=== PATIENT | male | born 1980 | race Hispanic/Latino ===

== ENCOUNTER 2020-05-07 15:45 | Inpatient (IN) | payer SELFPAY ==
[2020-05-07] MEDS ORDERED: PANTOPRAZOLE 40 MG INJ ONE ×2 (17:25→21:49)
[2020-05-07] MEDS ORDERED: CEFTRIAXONE/SWI 1gm 1 GM/10 ML SYR ONE (17:26)
[2020-05-07] MEDS ORDERED: NA CHLORIDE 0.9% 1,000 ML ONE (17:26)
[2020-05-07 17:40] LABS: Absolute Lymphocytes (CBC) 0.9 K/uL (0.7-4.9); Basophils % 0.4 % (0-1.3); Hematocrit 30.2 % (39.6-49.0); Lymphocytes % 31.4 % (15.3-44.8); MPV 8.2 fL (7.6-11.3); RBC Red Blood Cell Count 3.62 M/uL (4.33-5.43)
[2020-05-07 17:49] LABS: ALT/SGPT 93 U/L (12-78); AST/SGOT 179 U/L (15-37); Albumin 2.3 g/dL (3.4-5.0); Alkaline Phosphatase 149 U/L (45-117); BUN Blood Urea Nitrogen 16 mg/dL (7-18); Bicarbonate 23 mmol/L (21-32); Bilirubin Direct 0.4 mg/dL (0-0.2); Bilirubin Total 0.5 mg/dL (0.2-1.0); Glucose Level 105 mg/dL (74-106); Lipase 225 U/L (73-393); Potassium 3.6 mmol/L (3.5-5.1); Protein, Total 7.6 g/dL (6.4-8.2); Sodium Level 138 mmol/L (136-145)
--- NOTE | 2020-05-07 18:04 | RAD REPORT ---
EXAM DESCRIPTION: CT - Abdomen Pelvis W Contrast - 05/07/2020 5:52 pm CLINICAL HISTORY: Abdominal pain diarhea COMPARISON: none. TECHNIQUE: Computed axial tomography of the abdomen pelvis was obtained. 100 cc Isovue-300 was admin istered intravenously. Oral contrast was not requested which limits evaluation of bowel. All CT scans are performed using dose optimization technique as appropriate and may include automated exposure control or mA/KV adjustment according to patient size. FINDINGS: Markedly cirrhotic liver. The portal vein is patent. The spleen measures 14 centimeters. Pancreas is normal size and density. Small amount peripancreatic fluid. Small bilateral nonobstructing renal calculi. Small renal cysts There is no evidence of diverticulitis. Normal appendix Minimal ascites. Small hiatal hernia IMPRESSION: Marked cirrhosis Small amount peripancreatic fluid may be related to hypoalbuminemia or mild pancreatitis Small nonobstructing renal calculi
--- NOTE | 2020-05-07 18:17 | ER ---
Nurse's Notes [facility] Name: Rick Brooks Age: 40 yrs Sex: Male : 1980 Arrival Date: 05/07/2020 Time: 15:47 Bed 13 Private MD: Diagnosis: Gastrointestinal hemorrhage, unspecified Presentation: 05/07 15:57 Chief complaint: Patient states: black diarrhea x 3 days. Also reports mild cough x 3 ss days. Denies headache/ fever. Coronavirus screen: Prior COVID test collected on: 04/24/20 NEGATIVE RESULT. Ebola Screen: Patient denies exposure to infectious person. Patient denies travel to an Ebola-affected area in the 21 days before illness onset. Initial Sepsis Screen: Does the patient meet any 2 criteria? HR > 90 bpm. No. Patient's initial sepsis screen is negative. Does the patient have a suspected source of infection? No. Patient's initial sepsis screen is negative. Risk Assessment: Do you want to hurt yourself or someone else? Patient reports no desire to harm self or others. Onset of symptoms was May 04, 2020. 15:57 Method Of Arrival: Ambulatory ss 15:57 Acuity: MARGARITA 3 ss Historical: - Allergies: 16:00 No Known Allergies; ss - Home Meds: 16:00 None [Active]; ss - PMHx: 16:00 None; ss - PSHx: 16:00 None; ss - Immunization history:: Adult Immunizations unknown. - Social history:: Smoking status: Patient reports the use of cigarette tobacco products, denies chronic smoking, but will smoke occasionally. - Family history:: not pertinent. Screenin:12 Abuse screen: Denies threats or abuse. Nutritional screening: No deficits noted. Tuberculosis screening: No symptoms or risk factors identified. Fall Risk None identified. Assessment: 16:50 General: Appears in no apparent distress. Behavior is calm, cooperative. Pain: Denies pain. Neuro: Level of Consciousness is awake, alert, obeys commands, Oriented to person, place, time, situation, Appropriate for age. Cardiovascular: Heart tones S1 S2 present Capillary refill < 3 seconds Patient's skin is warm and dry. Pulses are palpable in right radial artery and left radial artery. Respiratory: Airway is patent Respiratory effort is even, unlabored. GI: Abdomen is distended, Bowel sounds hyperactive in right upper quadrant, left upper quadrant, right lower quadrant and left lower quadrant Abd is non tender X 4 quads Reports diarrhea, Black loose stools x 3-4 days Patient currently denies bloody stool. Derm: Skin is intact, is healthy with good turgor. 17:50 Reassessment: Patient and/or family updated on plan of care and expected duration. Pain ah level reassessed. Patient is alert, oriented x 3, equal unlabored respirations, skin warm/dry/pink. awaiting on results from lab and radiology. No needs voiced at this time. 18:50 Reassessment: Patient and/or family updated on plan of care and expected duration. Pain ah level reassessed. Patient is alert, oriented x 3, equal unlabored respirations, skin warm/dry/pink. awaiting on results and decision to be made by provider. Pt has no needs at this time. 19:50 Reassessment: Patient and/or family updated on plan of care and expected duration. Pain ah level reassessed. Patient is alert, oriented x 3, equal unlabored respirations, skin warm/dry/pink. 20:35 Reassessment: Pt called for nurse to come to room. Pt profusely sweating and states ah that he feels shaky and hungry. Pt denies being diabetic. Glucose checked at bedside and read 36. Immediately notified MD and got order to administer D50. Meds administered. Pt given cool rag. at bedside. Pt still alert and oriented. No other needs voiced at this time. 20:50 Reassessment: Blood sugar rechecked at this time. Pt states that he is feeling better ah and not shaky. Blood sugar 151. Informed Pt that he cannot eat at this time, but he will be going to room 6 in ICU very soon. Pt voiced understanding. Vital Signs: 15:57 BP 145 / 86; Pulse 113; Resp 16; Temp 98.6(TE); Pulse Ox 100% on R/A; Weight 81.65 kg; ss Height 5 ft. 6 in. (167.64 cm); Pain 0/10; 20:49 BP 102 / 49; Pulse 93; Resp 16; Pulse Ox 97% ; ah 15:57 Body Mass Index 29.05 (81.65 kg, 167.64 cm) ED Course: 15:47 Patient arrived in ED. bp1 16:00 Triage completed. ss 16:00 Arm band placed on right wrist. ss 16:15 Bed in low position. Call light in reach. Side rails up X 1. Adult w/ patient. Warm jp3 blanket given. Verbal reassurance given. Pulse ox on. NIBP on. 16:42 Kala Farrar, RN is Primary Nurse. 16:43 Jeferson Wing MD is Attending Physician. ma2 17:20 Inserted saline lock: 20 gauge in right forearm, using aseptic technique. Blood jp3 collected. Patient maintains SpO2 saturation greater than 95% on room air. 17:20 Initial lab(s) drawn, by wa, sent to lab. jp3 17:52 CT Abd/Pelvis - IV Contrast Only In Process Unspecified. EDMS 18:16 Prince Camacho MD is Hospitalizing Provider. ma2 18:50 Repeat lab(s) drawn. by me, sent to lab. Urine collected: clean catch specimen, clear, jp3 matthew colored. 18:50 PT-INR Sent. jp3 22:08 No provider procedures requiring assistance completed. Patient admitted, IV remains in ah place. Administered Medications: 17:30 Drug: NS 0.9% 1000 ml Route: IV; Rate: 1 bolus; Site: right antecubital; 21:05 Follow up: Response: No adverse reaction; IV Status: Completed infusion 17:55 Drug: Rocephin - (cefTRIAXone) 1 grams Route: IVPB; Infused Over: 30 mins; Site: right antecubital; 18:00 Drug: Pantoprazole 80 mg Route: IVP; Site: right antecubital; 21:05 Follow up: Response: No adverse reaction 19:26 Drug: Octreotide Infusion (50 mcg/hr) - (Octreotide 500 mcg, NS 0.9% 500 ml) Route: IV; Rate: 50 ml/hr; Site: right antecubital; 21:04 Follow up: Response: No adverse reaction; IV Status: Infusion continued upon admission 22:07 Follow up: Response: No adverse reaction; IV Status: Infusion continued upon admission 20:35 Drug: D50W 50 ml Route: IVP; Site: right antecubital; 21:04 Follow up: Response: No adverse reaction 22:07 Follow up: Response: No adverse reaction; Blood sugar is elevated Outcome: 18:16 Decision to Hospitalize by Provider. ma2 21:20 Admitted to ICU accompanied by nurse, via wheelchair, room 6, on monitor, with chart, Report called to receiving nurse, ANAT Nunez 21:20 Condition: stable 21:20 Instructed on the need for admit. 21:23 Patient left the ED. mw2 Signatures: Dispatcher [employer] EDJamila Desai, RN RN Jeferson Wing MD MD ma2 Mirta Mcdaniel mw2 Nishant Jean 3 Kala Farrar RN RN [facility]
--- NOTE | 2020-05-07 18:17 | EDPHYS ---
Physician Documentation [facility] Name: Rick Brooks Age: 40 yrs Sex: Male : 1980 Arrival Date: 05/07/2020 Time: 15:47 Bed 13 Private MD: ED Physician Jeferson Wing HPI: 05/07 17:14 This 40 yrs old Male presents to ER via Ambulatory with complaints of Black/Tarry ma2 Stools, Diarrhea, Cough. 17:14 Onset: The symptoms/episode began/occurred gradually, 1 day(s) ago. Associated signs ma2 and symptoms: Pertinent negatives: anorexia, constipation, dysuria, flatulence, hematuria. Severity of symptoms: At their worst the symptoms were mild in the emergency department the symptoms are unchanged. The patient has not experienced similar symptoms in the past. Historical: - Allergies: 16:00 No Known Allergies; ss - Home Meds: 16:00 None [Active]; ss - PMHx: 16:00 None; ss - PSHx: 16:00 None; ss - Immunization history:: Adult Immunizations unknown. - Social history:: Smoking status: Patient reports the use of cigarette tobacco products, denies chronic smoking, but will smoke occasionally. - Family history:: not pertinent. ROS: 17:14 Constitutional: Negative for fever, chills, and weight loss. ma2 17:14 All other systems are negative. Exam: 17:14 Constitutional: This is a well developed, well nourished patient who is awake, alert, ma2 and in no acute distress. Chest/axilla: Normal chest wall appearance and motion. Nontender with no deformity. No lesions are appreciated. Cardiovascular: Regular rate and rhythm with a normal S1 and S2. No gallops, murmurs, or rubs. Normal PMI, no JVD. No pulse deficits. Respiratory: Lungs have equal breath sounds bilaterally, clear to auscultation and percussion. No rales, rhonchi or wheezes noted. No increased work of breathing, no retractions or nasal flaring. Abdomen/GI: Soft, non-tender, with normal bowel sounds. No distension or tympany. No guarding or rebound. No evidence of tenderness throughout. Skin: Warm, dry with normal turgor. Normal color with no rashes, no lesions, and no evidence of cellulitis. MS/ Extremity: Pulses equal, no cyanosis. Neurovascular intact. Full, normal range of motion. Neuro: Awake and alert, GCS 15, oriented to person, place, time, and situation. Cranial nerves II-XII grossly intact. Motor strength 5/5 in all extremities. Sensory grossly intact. Cerebellar exam normal. Normal gait. Vital Signs: 15:57 BP 145 / 86; Pulse 113; Resp 16; Temp 98.6(TE); Pulse Ox 100% on R/A; Weight 81.65 kg; ss Height 5 ft. 6 in. (167.64 cm); Pain 0/10; 20:49 BP 102 / 49; Pulse 93; Resp 16; Pulse Ox 97% ; ah 15:57 Body Mass Index 29.05 (81.65 kg, 167.64 cm) ss MDM: 16:43 Patient medically screened. [facility] 17:14 Differential diagnosis: PUD, upper GI bleeding, Lower GI bleeding vs diverticulitits. [facility] 18:12 Data reviewed: vital signs, nurses notes. Counseling: I had a detailed discussion with [facility] the patient and/or guardian regarding: the historical points, exam findings, and any diagnostic results supporting the discharge/admit diagnosis, the presence of at least one elevated blood pressure reading (>120/80) during this emergency department visit, the need for outpatient follow up. ED course: he drinks alcohol, quit drinking 2 weeks ago, called dr. helm and left a voice message, will admit. discussed with dr. Keenan. 18:22 ED course: discussed with dr. helm. [facility] 05/07 17:10 Order name: Type And Screen [facility] 05/07 17:10 Order name: Basic Metabolic Panel; Complete Time: 18:03 [facility] 05/07 17:10 Order name: CBC with Diff [facility] 05/07 17:10 Order name: Hepatic Function; Complete Time: 18:03 [facility] 05/07 17:10 Order name: Lipase; Complete Time: 18:03 [facility] 05/07 18:21 Order name: PT-INR [facility] 05/07 18:45 Order name: CREATININE WHOLE BLOOD [facility] 05/07 18:54 Order name: CBC Smear Scan [facility] 05/07 19:03 Order name: Protime (+INR) [facility] 05/07 19:22 Order name: ABO/RH no charge [facility] 05/07 20:14 Order name: Hemoglobin [facility] 05/07 20:14 Order name: Hematocrit [facility] 05/07 20:40 Order name: Glucose, Ancillary Testing [facility] 05/07 20:59 Order name: Glucose, Ancillary Testing [facility] 05/07 17:10 Order name: IV Saline Lock; Complete Time: 18:10 ma2 05/07 17:10 Order name: Labs collected and sent; Complete Time: 18:10 ut2 05/07 17:10 Order name: CT Abd/Pelvis - IV Contrast Only; Complete Time: 18:10 ma2 Administered Medications: 17:30 Drug: NS 0.9% 1000 ml Route: IV; Rate: 1 bolus; Site: right antecubital; 21:05 Follow up: Response: No adverse reaction; IV Status: Completed infusion 17:55 Drug: Rocephin - (cefTRIAXone) 1 grams Route: IVPB; Infused Over: 30 mins; Site: right ah antecubital; 18:00 Drug: Pantoprazole 80 mg Route: IVP; Site: right antecubital; 21:05 Follow up: Response: No adverse reaction 19:26 Drug: Octreotide Infusion (50 mcg/hr) - (Octreotide 500 mcg, NS 0.9% 500 ml) Route: IV; Rate: 50 ml/hr; Site: right antecubital; 21:04 Follow up: Response: No adverse reaction; IV Status: Infusion continued upon admission 22:07 Follow up: Response: No adverse reaction; IV Status: Infusion continued upon admission 20:35 Drug: D50W 50 ml Route: IVP; Site: right antecubital; 21:04 Follow up: Response: No adverse reaction 22:07 Follow up: Response: No adverse reaction; Blood sugar is elevated Disposition: 05/07/20 18:16 Hospitalization ordered by Prince Doug for Inpatient Admission. Preliminary diagnosis is Gastrointestinal hemorrhage, unspecified. - Bed requested for Intensive Care Unit. - Status is Inpatient Admission. mw2 - Condition is Stable. - Problem is new. - Symptoms are unchanged. Signatures: Dispatcher [facility] Chelsey Piedra RN RN Jamila Morel RN RN Jeferson Wing MD MD ut2 Mirta Mcdaniel mw2 Kala Farrar, RN RN ah Corrections: (The following items were deleted from the chart) 18:16 18:16 Hospitalization Ordered by Prince Doug SNIGH for Inpatient Admission. Preliminary ma2 diagnosis is Gastrointestinal hemorrhage, unspecified. Bed requested for Telemetry/MedSurg (Inpatient). Status is Inpatient Admission. Condition is Stable. Problem is new. Symptoms are unchanged. [facility] 20:22 18:16 05/07/2020 18:16 Hospitalization Ordered by Prince Doug SINGH for Inpatient mw Admission. Preliminary diagnosis is Gastrointestinal hemorrhage, unspecified. Bed requested for Intensive Care Unit. Status is Inpatient Admission. Condition is Stable. Problem is new. Symptoms are unchanged. [facility] 21:23 20:22 05/07/2020 18:16 Hospitalization Ordered by Prince Doug SINGH for Inpatient mw2 Admission. Preliminary diagnosis is Gastrointestinal hemorrhage, unspecified. Bed requested for Intensive Care Unit. Status is Inpatient Admission. Condition is Stable. Problem is new. Symptoms are unchanged.
[2020-05-07 18:53] LABS: Blood Morphology Comment NOT SEEN (NOT SEEN); Platelet Estimate DECR; Urine White Blood Cell Casts OK
[2020-05-07 18:58] LABS: Protime INR 1.23
[2020-05-07 20:03] LABS: Hematocrit 25.6 % (39.6-49.0)
[2020-05-07] MEDS ORDERED: D50W 25 GM/50 ML SYRINGE/VIAL IV ONE (20:38)
[2020-05-07] MEDS ORDERED: PANTOPRAZOLE INJ 80 MG in NA CHLORIDE 0.9% 250 ML IV SCH (21:21)
[2020-05-07] MEDS ORDERED: OCTREOTIDE ACETATE 100 MCG/ML IV ONE (21:21)
[2020-05-07] MEDS ORDERED: CEFTRIAXONE 1 GM/NS 50 ML 1 GM/50 ML BAG IV SCH (21:21)
[2020-05-07] MEDS ORDERED: OCTREOTIDE 500 MCG in NA CHLORIDE 0.9% 500 ML IV SCH (21:21)
[2020-05-07] MEDS: OCTREOTIDE 500 MCG in NA CHLORIDE 0.9% 500 ML IV SCH (21:30)
[2020-05-07] MEDS ORDERED: NA CHLORIDE 0.9% 250 ML ONE (21:50)
[2020-05-07] MEDS: D5 0.9 NS 1,000 ML IV SCH (22:01)
[2020-05-07] MEDS: PANTOPRAZOLE INJ 80 MG in NA CHLORIDE 0.9% 250 ML IV SCH (22:02)
[2020-05-07] MEDS ORDERED: OCTREOTIDE ACETATE 100 MCG/ML ONE (22:40)
[2020-05-07] MEDS ORDERED: ONDANSETRON 4 MG/2 ML VIAL IV PRN (22:41)
[2020-05-07] MEDS ORDERED: NA CHLORIDE 0.9% 250 ML IV SCH (23:00)
[2020-05-08 01:13] LABS: Hematocrit 27.8 % (39.6-49.0)
[2020-05-08] MEDS ORDERED: ACETAMINOPHEN 325 MG TABLET PO ONE (04:53)
[2020-05-08] MEDS: OCTREOTIDE 500 MCG in NA CHLORIDE 0.9% 500 ML IV SCH ×2 (05:25→15:37)
[2020-05-08 05:31] VITALS: BMI 30.7
[2020-05-08 05:34] LABS: Hematocrit 26.5 % (39.6-49.0)
[2020-05-08 05:46] LABS: Protime INR 1.16
--- NOTE | 2020-05-08 07:18 | P.HP ---
Certification for Inpatient Patient admitted to: Inpatient With expected LOS: >2 Midnights Patient will require the following post-hospital care: None Practitioner: I am a practitioner with admitting privileges, knowledge of patient current condition, hospital course, and medical plan of care. Services: Services provided to patient in accordance with Admission requirements found in Title 42 Section 412.3 of the Code of Federal Regulations Patient History Date of Service: 05/07/20 Reason for admission: Melena; fever; cough History of Present Illness: A 40-year-old gentleman who comes into the hospital with multiple episodes of melanotic stools. He said this been going on for the last 3-4 days. He has been feeling weak and decided to come into the ER for further evaluation. He does take some NSAIDs for pain daily. He has been doing this for quite a while. He denies any alcohol use. He came into the emergency room and his workup showed a hemoglobin of 9.0. He was slightly uremic as well. Patient also told the nurse that he had COVID-19 testing a week and half ago. He has had contacts that have tested positive for COVID-19. He will be recheck at this time as he may need endoscopy. Allergies No Known Allergies Allergy (Verified 05/07/20 23:39) Home Medications: NK [No Home Meds] 05/07/20 - Past Medical/Surgical History Has patient received pneumonia vaccine in the past: No Diabetic: No -: pneumonia Past Surgical History: Patient denies surgical history - Family History Father Family History: Reviewed- Non-Contributory - Social History Smoking Status: Current some day smoker Alcohol use: Yes CD- Drugs: No Caffeine use: Yes Place of Residence: Home Review of Systems 10-point ROS is otherwise unremarkable Physical Examination - Vital Signs Temperature: 100.2 F Blood Pressure: 121/80 Pulse: 98 Respirations: 22 Pulse Ox (%): 97 - Physical Exam General: Alert, In no apparent distress, Oriented x3 HEENT: Atraumatic, PERRLA, Mucous membr. moist/pink, EOMI, Sclerae nonicteric Neck: Supple, 2+ carotid pulse no bruit, No LAD, Without JVD or thyroid abnormality Respiratory: Clear to auscultation bilaterally, Normal air movement Cardiovascular: Regular rate/rhythm, Normal S1 S2, No murmurs Gastrointestinal: Normal bowel sounds, Soft and benign, Non-distended, No tenderness Musculoskeletal: No clubbing, No swelling, No tenderness Integumentary: No rashes Neurological: Normal gait, Normal speech, Normal strength at 5/5 x4 extr, Normal tone, Sensation intact, Cranial nerves 3-12 intact, Normal affect Lymphatics: No axilla or inguinal lymphadenopathy - Studies Laboratory Data (last 24 hrs) 05/07/20 17:20: WBC 2.9 L, Hgb 9.9 L, Hct 30.2 L, Plt Count 134 L 05/07/20 17:20: Sodium 138, Potassium 3.6, BUN 16, Creatinine 0.71, Glucose 105, Total Bilirubin 0.5, AST 179 H, ALT 93 H, Alkaline Phosphatase 149 H, Lipase 225 Assessment & Plan - Problems (Diagnosis) (1) Upper GI bleeding Current Visit: Yes Status: Acute (2) Melena Current Visit: Yes Status: Acute (3) Fever Current Visit: Yes Status: Acute (4) Upper respiratory infection Current Visit: Yes Status: Acute (5) History of tobacco use Current Visit: Yes Status: Acute (6) NSAID long-term use Current Visit: Yes Status: Acute - Plan Plan: 1. Continue with IV hydration and PPI drip 2. Continue with IV antibiotics 3. Continue with pain control 4. NPO 5. GI consultation 6. Serial H&H, and we will monitor LFTs and lipase along with electrolytes. 7. COVID-19 testing 8. GI and DVT prophylaxis Discharge Plan: Home Plan to discharge in: Greater than 2 days - Advance Directives Does patient have a Living Will: No Does patient have a Durable POA for Healthcare: No - Code Status/Comfort Care Code Status Assessed: Yes Code Status: Full Code Critical Care: No Time Spent Managing PTS Care (In Minutes): 40
--- NOTE | 2020-05-08 07:22 | P.PN ---
Subjective Date of Service: 05/08/20 Patient is doing well. Hemoglobin is stable. No more melanotic stools. Awaiting COVID-19 testing to be completed. Will transfer to PUI floor. Review of Systems 10-point ROS is otherwise unremarkable Physical Examination - Vital Signs Temperature: 100.2 F Blood Pressure: 121/80 Pulse: 98 Respirations: 22 Pulse Ox (%): 97 - Physical Exam General: Alert, In no apparent distress, Oriented x3 Respiratory: Clear to auscultation bilaterally, Normal air movement Cardiovascular: Regular rate/rhythm, Normal S1 S2, No murmurs Gastrointestinal: Normal bowel sounds, Soft and benign, Non-distended, No te nderness Musculoskeletal: No clubbing, No swelling, No tenderness - Studies Laboratory Data (last 24 hrs) 05/07/20 17:20: WBC 2.9 L, Hgb 9.9 L, Hct 30.2 L, Plt Count 134 L 05/07/20 17:20: Sodium 138, Potassium 3.6, BUN 16, Creatinine 0.71, Glucose 105, Total Bilirubin 0.5, AST 179 H, ALT 93 H, Alkaline Phosphatase 149 H, Lipase 225 Medications List Reviewed: Yes Assessment & Plan - Problems (Diagnosis) (1) Upper GI bleeding Current Visit: Yes Status: Acute (2) Melena Current Visit: Yes Status: Acute (3) Fever Current Visit: Yes Status: Acute (4) Upper respiratory infection Current Visit: Yes Status: Acute (5) History of tobacco use Current Visit: Yes Status: Acute (6) NSAID long-term use Current Visit: Yes Status: Acute - Plan Plan: Continue with plan of care as mentioned below; transfer to general medical floor on droplet precautions 1. Continue with IV hydration and PPI drip 2. Continue with IV antibiotics 3. Continue with pain control 4. NPO 5. GI consultation 6. Serial H&H-hemoglobin stable over the last 24 hr, and we will monitor LFTs and lipase along with electrolytes. 7. COVID-19 testing 8. GI and DVT prophylaxis Discharge Plan: Home Plan to discharge in: Greater than 2 days - Advance Directives Does patient have a Living Will: No Does patient have a Durable POA for Healthcare: No - Code Status/Comfort Care Code Status: Full Code Critical Care: No Time Spent Managing PTS Care (In Minutes): 30
[2020-05-08] MEDS: PANTOPRAZOLE INJ 80 MG in NA CHLORIDE 0.9% 250 ML IV SCH ×2 (08:00→17:47)
[2020-05-08 11:39] LABS: Protime INR 1.18
[2020-05-08 11:47] LABS: Basophils % 0.2 % (0-1.3); Lymphocytes % 44.8 % (15.3-44.8); MPV 8.1 fL (7.6-11.3); RBC Red Blood Cell Count 3.27 M/uL (4.33-5.43)
[2020-05-08 12:22] LABS: ALT/SGPT 95 U/L (12-78); AST/SGOT 186 U/L (15-37); Albumin 2.1 g/dL (3.4-5.0); Alkaline Phosphatase 130 U/L (45-117); BUN Blood Urea Nitrogen 9 mg/dL (7-18); Bicarbonate 22 mmol/L (21-32); Bilirubin Total 0.5 mg/dL (0.2-1.0); Folic Acid, (Folate) 14.6 ng/mL (3.1-17.5); Glucose Level 101 mg/dL (74-106); Magnesium 1.6 mg/dL (1.8-2.4); Phosphorus 2.2 mg/dL (2.5-4.9); Potassium 3.9 mmol/L (3.5-5.1); Protein, Total 7.2 g/dL (6.4-8.2); Sodium Level 140 mmol/L (136-145)
[2020-05-08 13:03] LABS: Anisocytosis 1+; Blood Morphology Comment NOTED (NOT SEEN); Platelet Estimate ADEQ; Urine White Blood Cell Casts OK
[2020-05-08] MEDS: D5 0.9 NS 1,000 ML IV SCH (16:18)
[2020-05-08] MEDS: CEFTRIAXONE/SWI 1gm 1 GM/10 ML SYR IV SCH (16:19)
[2020-05-08] MEDS ORDERED: CEFTRIAXONE 1 GM/NS 50 ML 1 GM/50 ML BAG IV SCH (17:00)
[2020-05-08] MEDS: carvediloL 6.25 MG TAB PO SCH (20:33)
[2020-05-08] MEDS: ACETAMINOPHEN 325 MG TABLET PO PRN (20:33)
[2020-05-09] MEDS: OCTREOTIDE 500 MCG in NA CHLORIDE 0.9% 500 ML IV SCH ×3 (02:05→20:15)
[2020-05-09] MEDS: D5 0.9 NS 1,000 ML IV SCH ×2 (02:06→12:31)
[2020-05-09] MEDS: PANTOPRAZOLE INJ 80 MG in NA CHLORIDE 0.9% 250 ML IV SCH (05:58)
[2020-05-09] MEDS: ACETAMINOPHEN 325 MG TABLET PO PRN ×2 (06:02→12:31)
[2020-05-09] MEDS: carvediloL 6.25 MG TAB PO SCH (07:56)
[2020-05-09 09:05] LABS: Basophils % 0.5 % (0-1.3); Hematocrit 27.4 % (39.6-49.0); Lymphocytes % 41.9 % (15.3-44.8); MPV 8.3 fL (7.6-11.3); RBC Red Blood Cell Count 3.31 M/uL (4.33-5.43)
[2020-05-09 09:28] LABS: ALT/SGPT 86 U/L (12-78); AST/SGOT 156 U/L (15-37); Alkaline Phosphatase 118 U/L (45-117); BUN Blood Urea Nitrogen 5 mg/dL (7-18); Bicarbonate 23 mmol/L (21-32); Bilirubin Total 0.8 mg/dL (0.2-1.0); Glucose Level 109 mg/dL (74-106); Potassium 3.9 mmol/L (3.5-5.1); Protein, Total 6.9 g/dL (6.4-8.2); Sodium Level 140 mmol/L (136-145)
[2020-05-09 10:03] LABS: Anisocytosis 1+; Blood Morphology Comment NOTED (NOT SEEN); Platelet Estimate DECR
--- NOTE | 2020-05-09 12:39 | P.PN ---
Subjective Date of Service: 05/09/20 Chief Complaint: Melena; fever; cough Subjective: Improving (Non melenic stools over the past 24 hr. Patient is still on octreotide and PPI drip. He is feeling better and ambulating well without assist.) Physical Examination - Vital Signs Temperature: 97.3 F Blood Pressure: 124/73 Pulse: 86 Respirations: 16 Pulse Ox (%): 96 - Physical Exam General: In no apparent distress, Cooperative, Other (Slight lethargic and pale) HEENT: Atraumatic, Normocephalic, EOMI Neck: Supple Respiratory: Clear to auscultation bilaterally, Normal air movement Cardiovascular: No edema, Normal pulses, Regular rate/rhythm, Normal S1 S2 Gastrointestinal: Normal bowel sounds, Soft and benign, Other (Mild abdominal distention. No gross evidence of ascites or periumbilical venous engorgement) Musculoskeletal: No clubbing, No swelling, No contractures, No erythema, No tenderness, No warmth Integumentary: No rashes, No breakdown, No significant lesion, No tenderness/swelling, No erythema, No warmth, No cyanosis Neurological: Normal speech, Normal tone, Sensation intact, Normal affect - Studies Medications List Reviewed: Yes Assessment & Plan - Problems (Diagnosis) (1) Cirrhosis Current Visit: Yes Status: Acute (2) Alcoholic cirrhosis of liver with ascites Current Visit: Yes Status: Acute (3) NSAID long-term use Current Visit: Yes Status: Acute (4) Upper GI bleeding Current Visit: Yes Status: Acute Physician Review Additional Text: Assessment Patient is a 40-year-old male with a known past medical history of chronic alcohol consumption who presented to the hospital with melenic stools. Was admitted to the ICU with PPI and octreotide infusion along with ceftriaxone. He is more hemodynamically stable now. No transfusion was required during this stay. GI was consulted and optimized his regimen to include Coreg for possible esophageal varices. Tested + for coronavirus. No respiratory issues but spiked a high-grade fever on 05/08. Upper GI bleeding Decompensated cirrhosis with ascites and possibly esophageal varices History of excessive alcohol consumption History of NSAIDs COVID 19 Plan: Continue octreotide infusion Switch to pantoprazole injections, 40 mg b.i.d. Increase Coreg from 6.5-12.5 mg b.i.d. with goal SBP of 110 or less Continue ceftriaxone for SBP prophylaxis Continue IV fluid infusion Monitor H&H with goal hemoglobin greater than 7-8 Consult GI in case of hemodynamic instability or recurrence of bleeding at which point GI will make arrangement for endoscope a in a negative pressure room If asymptomatic, patient most likely be discharged tomorrow Follow-up blood cultures
[2020-05-09] MEDS: FOLIC ACID 1 MG TABLET PO SCH ×2 (14:32→14:35)
[2020-05-09] MEDS: THIAMINE HCL 100 MG TABLET PO SCH ×2 (14:32→14:35)
[2020-05-09] MEDS: CEFTRIAXONE/SWI 1gm 1 GM/10 ML SYR IV SCH (17:00)
--- NOTE | 2020-05-09 17:52 | P.PN ---
Subjective Date of Service: 05/09/20 Chief Complaint: Melena; fever; cough Subjective: Improving (No melena / GI bleeding since admission on PPI, IV Octretide, and IV antibiotics. Coreg started.) Review of Systems General: Weakness, Malaise Physical Examination - Vital Signs Temperature: 99.3 F Blood Pressure: 124/73 Pulse: 86 Respirations: 16 Pulse Ox (%): 96 - Studies Medications List Reviewed: Yes Assessment And Plan - Current Problems (Diagnosis) (1) COVID-19 Current Visit: Yes Status: Acute Comment: No respiratory symptoms (2) Abnormal CT of the abdomen Current Visit: Yes Status: Acute (3) Esophageal varices Current Visit: Yes Status: Acute (4) Cirrhosis Current Visit: Yes Status: Acute (5) Melena Current Visit: Yes Status: Acute Comment: None since admission. Hgb stable. (6) Upper GI bleeding Current Visit: Yes Status: Acute (7) Upper respiratory infection Current Visit: Yes Status: Acute - Plan REC: 1) goal hgb 7-8 2) decrease Protonix from IV drip to q 12 dosing 3) continue IV Octreotide and IV antibiotics 4) Coreg 6.25 mg bid started and titrating up tonight to 12.5 mg dose with goal SBP <= 110 5) EGD if emergency needed, o/w when COVID19 negative for safety 6) Thiamine, Folate po 7) DT precautions & prn BDZs with AA / rehab on discharge Physician Review Additional Text: Assessment Patient is a 40-year-old male with a known past medical history of chronic alcohol consumption who presented to the hospital with melenic stools. Was admitted to the ICU with PPI and octreotide infusion along with ceftriaxone. He is more hemodynamically stable now. No transfusion was required during this stay. GI was consulted and optimized his regimen to include Coreg for possible esophageal varices. Tested + for coronavirus. No respiratory issues but spiked a high-grade fever on 05/08. Upper GI bleeding Decompensated cirrhosis with ascites and possibly esophageal varices History of excessive alcohol consumption History of NSAIDs COVID 19 Plan: Continue octreotide infusion Switch to pantoprazole injections, 40 mg b.i.d. Increase Coreg from 6.5-12.5 mg b.i.d. with goal SBP of 110 or less Continue ceftriaxone for SBP prophylaxis Continue IV fluid infusion Monitor H&H with goal hemoglobin greater than 7-8 Consult GI in case of hemodynamic instability or recurrence of bleeding at which point GI will make arrangement for endoscope a in a negative pressure room If asymptomatic, patient most likely be discharged tomorrow Follow-up blood cultures
[2020-05-09] MEDS: PANTOPRAZOLE 40 MG INJ IV SCH (20:15)
[2020-05-09] MEDS: SODIUM CHLORIDE 0.9% 10ML INJ IV SCH (20:16)
[2020-05-09] MEDS: carvediloL 12.5 MG TAB PO SCH (21:10)
[2020-05-10] MEDS: ACETAMINOPHEN 325 MG TABLET PO PRN ×4 (00:14→20:16)
[2020-05-10] MEDS: D5 0.9 NS 1,000 ML IV SCH ×2 (03:02→15:25)
[2020-05-10] MEDS: OCTREOTIDE 500 MCG in NA CHLORIDE 0.9% 500 ML IV SCH ×2 (06:09→17:04)
[2020-05-10] MEDS: carvediloL 12.5 MG TAB PO SCH ×2 (08:52→20:16)
[2020-05-10] MEDS: PANTOPRAZOLE 40 MG INJ IV SCH ×2 (08:52→20:15)
[2020-05-10] MEDS: FOLIC ACID 1 MG TABLET PO SCH (08:52)
[2020-05-10] MEDS: THIAMINE HCL 100 MG TABLET PO SCH (08:52)
[2020-05-10] MEDS: SODIUM CHLORIDE 0.9% 10ML INJ IV SCH ×2 (08:53→20:15)
[2020-05-10] MEDS ORDERED: AZITHROMYCIN IV 500 MG in NA CHLORIDE 0.9% 250 ML IVPB SCH (09:00)
--- NOTE | 2020-05-10 09:06 | RAD REPORT ---
EXAM DESCRIPTION: RAD - Chest Single View - 05/10/2020 8:38 am CLINICAL HISTORY: r/o PNA Chest pain. COMPARISON: No comparisons FINDINGS: Portable technique limits examination quality. Patchy opacity is present in the left inferior lung likely in the lingula most compatible with pneumo vin. The heart is normal in size. No displaced fractures. IMPRESSION: Moderate lingular pneumonia.
[2020-05-10 09:36] LABS: Absolute Lymphocytes (CBC) 0.8 K/uL (0.7-4.9); Basophils % 0.7 % (0-1.3); Hematocrit 28.2 % (39.6-49.0); Lymphocytes % 38.1 % (15.3-44.8); MPV 8.4 fL (7.6-11.3); RBC Red Blood Cell Count 3.36 M/uL (4.33-5.43)
[2020-05-10 10:48] LABS: HIV AG/AB 4TH GEN Non-reactive (Non-reactive)
[2020-05-10 11:30] LABS: ALT/SGPT 74 U/L (12-78); AST/SGOT 116 U/L (15-37); Albumin 1.9 g/dL (3.4-5.0); Alkaline Phosphatase 121 U/L (45-117); BUN Blood Urea Nitrogen 5 mg/dL (7-18); Bicarbonate 24 mmol/L (21-32); Bilirubin Total 0.7 mg/dL (0.2-1.0); Glucose Level 76 mg/dL (74-106); Potassium 3.6 mmol/L (3.5-5.1); Protein, Total 6.6 g/dL (6.4-8.2); Sodium Level 140 mmol/L (136-145)
--- NOTE | 2020-05-10 12:16 | P.PN ---
Subjective Date of Service: 05/10/20 Chief Complaint: Melena; fever; cough Subjective: No new changes (Patient is having multiple fever spikes. CXR showed LLL PNA. Started on levofloxacin. Doing well on room air.) Physical Examination - Vital Signs Temperature: 100.8 F Blood Pressure: 110/63 Pulse: 85 Respirations: 18 Pulse Ox (%): 94 - Physical Exam General: In no apparent distress, Cooperative, Other HEENT: Atraumatic, Normocephalic, EOMI, Sclerae nonicteric Neck: Supple Respiratory: Clear to auscultation bilaterally, Normal air movement Cardiovascular: No edema, Normal pulses, Regular rate/rhythm, Normal S1 S2 Gastrointestinal: No tenderness, No guarding, Distended, Ascites Musculoskeletal: No clubbing, No swelling, No contractures, No erythema, No tenderness, No warmth Integumentary: No rashes, No breakdown, No significant lesion, No tenderness/swelling, No erythema, No warmth, No cyanosis Neurological: Normal speech, Sensation intact, Normal affect - Studies Medications List Reviewed: Yes Assessment & Plan - Problems (Diagnosis) (1) Cirrhosis Current Visit: Yes Status: Acute (2) Alcoholic cirrhosis of liver with ascites Current Visit: Yes Status: Acute (3) NSAID long-term use Current Visit: Yes Status: Acute (4) Upper GI bleeding Current Visit: Yes Status: Acute (5) Pneumonia Current Visit: Yes Status: Acute Physician Review Additional Text: Assessment Patient is a 40-year-old male with a known past medical history of chronic alcohol consumption who presented to the hospital with melenic stools. Was admitted to the ICU with PPI and octreotide infusion along with ceftriaxone. He is hemodynamically stable now. No transfusion was required during this stay. GI was consulted and optimized his regimen to include Coreg for possible esophageal varices and portal HTN. Tested + for coronavirus. No respiratory issues but spiked a high-grade fever since 05/08. CXR showed LLL PNA. Blood cultures negative to date. Upper GI bleeding Decompensated cirrhosis with ascites and possibly esophageal varices Pneumonia History of excessive alcohol consumption History of NSAIDs COVID 19 Plan: Started on levofloxacin IV Continue PPI IV BID and octreotide Continue coreg at 12.5 mg b.i.d. with goal SBP of 110 or less Levofloxacin for SBP ppx Discontinue IV infusion Monitor H&H with goal hemoglobin greater than 7-8 Defer endoscopic intervention to Dr. Clark from GI
[2020-05-10] MEDS: Levofloxacin 750mg IV 750 MG/150 ML BAG IV SCH (12:23)
--- NOTE | 2020-05-10 12:55 | P.PN ---
Subjective Date of Service: 05/10/20 Chief Complaint: Melena; fever; cough, COVID19 Subjective: Improving (Hgb continues to rise, 8.6 on admission to 9.6 today. BP at 110/63 on last check today.) Physical Examination - Vital Signs Temperature: 101.3 F Blood Pressure: 110/63 Pulse: 85 Respirations: 18 Pulse Ox (%): 94 - Studies Medications List Reviewed: Yes Assessment And Plan - Current Problems (Diagnosis) (1) COVID-19 Current Visit: Yes Status: Acute (2) Abnormal CT of the abdomen Current Visit: Yes Status: Acute (3) Esophageal varices Current Visit: Yes Status: Acute Comment: Noted on review of CT with radiol ogist. (4) Cirrhosis Current Visit: Yes Status: Acute (5) Melena Current Visit: Yes Status: Acute Comment: None since admission. Hgb stable. (6) Upper GI bleeding Current Visit: Yes Status: Acute (7) Upper respiratory infection Current Visit: Yes Status: Acute - Plan REC: 1) goal hgb 7-8 (tranfuse if hgb <7) 2) Protonix IV q 12 dosing 3) continue IV Octreotide and IV antibiotics 4) Coreg 12.5 mg dose bid with goal SBP <= 110 5) EGD if emergency needed, o/w when COVID19 negative for safety 6) Thiamine, Folate po 7) DT precautions & prn BDZs with AA / rehab on discharge Physician Review Additional Text: Assessment Patient is a 40-year-old male with a known past medical history of chronic alcohol consumption who presented to the hospital with melenic stools. Was admitted to the ICU with PPI and octreotide infusion along with ceftriaxone. He is hemodynamically stable now. No transfusion was required during this stay. GI was consulted and optimized his regimen to include Coreg for possible esophageal varices and portal HTN. Tested + for coronavirus. No respiratory issues but spiked a high-grade fever since 05/08. CXR showed LLL PNA. Blood cultures negative to date. Upper GI bleeding Decompensated cirrhosis with ascites and possibly esophageal varices Pneumonia History of excessive alcohol consumption History of NSAIDs COVID 19 Plan: Started on levofloxacin IV Continue PPI IV BID and octreotide Continue coreg at 12.5 mg b.i.d. with goal SBP of 110 or less Levofloxacin for SBP ppx Discontinue IV infusion Monitor H&H with goal hemoglobin greater than 7-8 Defer endoscopic intervention to Dr. Clark from GI
[2020-05-11] MEDS: ACETAMINOPHEN 325 MG TABLET PO PRN ×3 (03:44→20:54)
[2020-05-11] MEDS: OCTREOTIDE 500 MCG in NA CHLORIDE 0.9% 500 ML IV SCH ×3 (03:44→17:03)
[2020-05-11 04:09] LABS: HBsAG Nonreactive (Nonreactive)
[2020-05-11] MEDS: D5 0.9 NS 1,000 ML IV SCH ×2 (05:58→17:04)
[2020-05-11] MEDS: FOLIC ACID 1 MG TABLET PO SCH (09:07)
[2020-05-11] MEDS: carvediloL 12.5 MG TAB PO SCH ×2 (09:07→20:55)
[2020-05-11] MEDS: THIAMINE HCL 100 MG TABLET PO SCH (09:07)
[2020-05-11] MEDS: SODIUM CHLORIDE 0.9% 10ML INJ IV SCH ×2 (09:07→20:55)
[2020-05-11] MEDS: PANTOPRAZOLE 40 MG INJ IV SCH ×2 (09:07→20:54)
--- NOTE | 2020-05-11 11:16 | P.PN ---
Subjective Date of Service: 05/11/20 Chief Complaint: Melena; fever; cough, COVID19 Subjective: Other (patient continues to have multiple fever spikes. He has mild productive cough. No dyspnea.) Physical Examination - Vital Signs Temperature: 100.1 F Blood Pressure: 115/76 Pulse: 84 Respirations: 18 Pulse Ox (%): 94 - Physical Exam General: Cooperative, Other (lethargic, pale and jaundice) HEENT: Atraumatic, Normocephalic, EOMI Neck: Supple Musculoskeletal: No clubbing, No contractures, No tenderness Integumentary: Other (jaundice) - Studies Medications List Reviewed: Yes Assessment & Plan - Problems (Diagnosis) (1) Cirrhosis Current Visit: Yes Status: Acute (2) Alcoholic cirrhosis of liver with ascites Current Visit: Yes Status: Acute (3) NSAID long-term use Current Visit: Yes Status: Acute (4) Upper GI bleeding Current Visit: Yes Status: Acute (5) Pneumonia Current Visit: Yes Status: Acute Physician Review Additional Text: Assessment Patient is a 40-year-old male with a known past medical history of chronic alcohol consumption who presented to the hospital with melenic stools. Was admitted to the ICU with PPI and octreotide infusion along with ceftriaxone. He is hemodynamically stable now. No transfusion was required during this stay. GI was consulted and optimized his regimen to include Coreg for possible esophageal varices and portal HTN. Tested + for coronavirus. No respiratory issues but spiked a high-grade fever since 05/08. CXR showed LLL PNA. Blood cultures negative to date. He tested positive for HepC, viral load > 25,000. ID consulted Upper GI bleeding Decompensated cirrhosis with ascites and possibly esophageal varices Pneumonia History of excessive alcohol consumption History of NSAIDs COVID 19 Plan: Follow up ID recommendations Continue levofloxacin IV Continue PPI IV BID and octreotide Continue coreg at 12.5 mg b.i.d. with goal SBP of 110 or less Monitor H&H with goal hemoglobin greater than 7-8 Will add thiamine and folic acid as per GI recommendations Defer endoscopic plan to GI
[2020-05-11] MEDS: Levofloxacin 750mg IV 750 MG/150 ML BAG IV SCH (12:02)
--- NOTE | 2020-05-11 14:19 | P.PN ---
Subjective Date of Service: 05/12/20 Chief Complaint: Melena; fever; cough, COVID19 Subjective: New changes (Recurrent fever spikes to 101F with COVID19 diagnosis.) Physical Examination - Vital Signs Temperature: 100.6 F Blood Pressure: 111/67 Pulse: 84 Respirations: 19 Pulse Ox (%): 96 - Studies Medications List Reviewed: Yes Assessment And Plan - Current Problems (Diagnosis) (1) COVID-19 Current Visit: Yes Status: Acute Comment: Now with fever spikes to 101F (2) Abnormal CT of the abdomen Current Visit: Yes Status: Acute (3) Esophageal varices Current Visit: Yes Status: Acute Comment: Noted on review of CT with radiologist. (4) Cirrhosis Current Visit: Yes Status: Acute (5) Melena Current Visit: Yes Status: Acute Comment: None since admission. Hgb stable. (6) Upper GI bleeding Current Visit: Yes Status: Acute (7) Upper respiratory infection Current Visit: Yes Status: Acute - Plan REC: 1) goal hgb 7-8 (tranfuse if hgb <7) 2) Protonix IV q 12 dosing 3) continue IV Octreotide and IV antibiotics 4) Coreg 12.5 mg dose bid with goal SBP <= 110 5) EGD if emergency needed, o/w when COVID19 negative for safety 6) Thiamine, Folate po 7) DT precautions & prn BDZs with AA / rehab on discharge 8) COVID19 therapy if possible Physician Review Additional Text: Assessment Patient is a 40-year-old male with a known past medical history of chronic alcohol consumption who presented to the hospital with melenic stools. Was admitted to the ICU with PPI and octreotide infusion along with ceftriaxone. He is hemodynamically stable now. No transfusion was required during this stay. GI was consulted and optimized his regimen to include Coreg for possible esophageal varices and portal HTN. Tested + for coronavirus. No respiratory issues but spiked a high-grade fever since 05/08. CXR showed LLL PNA. Blood cultures negative to date. He tested positive for HepC, viral load > 25,000. ID consulted Upper GI bleeding Decompensated cirrhosis with ascites and possibly esophageal varices Pneumonia History of excessive alcohol consumption History of NSAIDs COVID 19 Plan: Follow up ID recommendations Continue levofloxacin IV Continue PPI IV BID and octreotide Continue coreg at 12.5 mg b.i.d. with goal SBP of 110 or less Monitor H&H with goal hemoglobin greater than 7-8 Will add thiamine and folic acid as per GI recommendations Defer endoscopic plan to GI
--- NOTE | 2020-05-11 17:03 | P.CNS ---
Date of Consult: 05/11/20 Subjective: Patient is a 40-year-old male who presents with multiple episodes of dark colored stool and fatigue. Patient had EGD done and found to have upper GI bleed, esophageal varices, and cirrhosis of the liver. Patient also with Hepatitis C which I have been consulted for. Patient tested positive for Covid 19. Past medical/surgical history: Denies Social history: Reports history of alcohol and tobacco use Family history: noncontributory Allergies: NKDA Active Medications Acetaminophen (Tylenol -Tablet) 650 mg PO Q6H PRN PRN Reason: TEMP > 100' F Stop: 06/07/20 20:12 Last Admin: 05/11/20 12:20 Dose: 650 mg Documented by: Carvedilol (Coreg) 12.5 mg PO BID DEL Stop: 06/08/20 21:01 Last Admin: 05/11/20 09:07 Dose: 12.5 mg Documented by: Folic Acid (Folic Acid) 1 mg PO DAILY [facility] Stop: 06/08/20 14:31 Last Admin: 05/11/20 09:07 Dose: 1 mg Documented by: Octreotide Acetate 500 mcg/ (Sodium Chloride) 501 mls @ 50.1 mls/hr IV Q10H DEL Stop: 06/06/20 19:01 Last Admin: 05/11/20 13:00 Dose: Not Given Documented by: Dextrose/Sodium Chloride (D5w Ns 1-Liter Bag) 1,000 mls @ 75 mls/hr IV .[id number] [facility] Stop: 06/06/20 22:01 Last Admin: 05/11/20 05:58 Dose: 1,000 mls Documented by: Levofloxacin/Dextrose (Levaquin 750 Mg/150 Ml Ivpb (Premix)) 750 mg in 150 mls @ 100 mls/hr IV Q24H DEL; Protocol Stop: 06/09/20 13:01 Last Admin: 05/11/20 12:02 Dose: 150 mls Documented by: Ondansetron HCl (Zofran) 4 mg IV Q4H PRN PRN Reason: NAUSEA / VOMITING Stop: 06/06/20 22:42 Pantoprazole Sodium (Protonix Inj) 40 mg IV Q12HR DEL Stop: 06/08/20 21:01 Last Admin: 05/11/20 09:07 Dose: 40 mg Documented by: Sodium Chloride (Sodium Chloride 10 Ml Inj) 10 ml IV Q12HR DEL Stop: 06/08/20 21:01 Last Admin: 05/11/20 09:07 Dose: 10 ml Documented by: Thiamine HCl (Vitamin B-1) 100 mg PO DAILY [facility] Stop: 06/08/20 14:31 Last Admin: 05/11/20 09:07 Dose: 100 mg Documented by: ROS: CV: Denies chest pain RESP: Denies cough, shortness of breath : Denies dysuria GI: Reports last episode of diarrhea was one day ago, reports abdominal pain Objective: Temp Pulse Resp BP Pulse Ox 100.6 F 84 19 111/67 96 05/11/20 14:19 05/11/20 14:05/11/20 14:05/11/20 14:05/11/20 14:19 Labs: No new labs available. Last hemoglobin 9.3, hematocrit 28.2, white blood cells 2.2 Abd/pelvis CT 05/07: EXAM DESCRIPTION: CT - Abdomen Pelvis W Contrast - 05/07/2020 5:52 pm CLINICAL HISTORY: Abdominal pain diarhea COMPARISON: none. TECHNIQUE: Computed axial tomography of the abdomen pelvis was obtained. 100 cc Isovue-300 was administered intravenously. Oral contrast was not requested which limits evaluation of bowel. All CT scans are performed using dose optimization technique as appropriate and may include automated exposure control or mA/KV adjustment according to patient size. FINDINGS: Markedly cirrhotic liver. The portal vein is patent. The spleen measures 14 centimeters. Pancreas is normal size and density. Small amount peripancreatic fluid. Small bilateral nonobstructing renal calculi. Small renal cysts There is no evidence of diverticulitis. Normal appendix Minimal ascites. Small hiatal hernia IMPRESSION: Marked cirrhosis Small amount peripancreatic fluid may be related to hypoalbuminemia or mild pancreatitis Small nonobstructing renal calculi ROS: General: Awake, alert, no acute distress CV: S1,S2 RESP: Good breath sounds ABD: Round, distended, bowel sounds present Assessment and plan: Pneumonia and Fevers secondary to Covid 19 infection Procalcitonin negative, no leukocytosis, from ID standpoint can DC without antibiotics Cirrhosis, patient to follow up with GI outpatient Hepatitis C, From ID standpoint LFTs not elevated enough to treat acutely, recommend patient to follow up with GI or [facility] outpatient Blood cultures negative Will continue to monitor Thank you for consult Patient discussed with Dr. Saini
[2020-05-12] MEDS: ACETAMINOPHEN 325 MG TABLET PO PRN ×2 (03:40→12:30)
[2020-05-12] MEDS: D5 0.9 NS 1,000 ML IV SCH (05:57)
[2020-05-12] MEDS: OCTREOTIDE 500 MCG in NA CHLORIDE 0.9% 500 ML IV SCH (05:58)
[2020-05-12] MEDS: PANTOPRAZOLE 40 MG INJ IV SCH (08:01)
[2020-05-12] MEDS: SODIUM CHLORIDE 0.9% 10ML INJ IV SCH (08:01)
[2020-05-12] MEDS: THIAMINE HCL 100 MG TABLET PO SCH (08:02)
[2020-05-12] MEDS: FOLIC ACID 1 MG TABLET PO SCH (08:02)
[2020-05-12] MEDS: carvediloL 12.5 MG TAB PO SCH (08:54)
[2020-05-12 09:00] VITALS: O2SAT 95
[2020-05-12] MEDS ORDERED: FOLIC ACID 1 MG TABLET PO SCH (09:00)
[2020-05-12] MEDS ORDERED: THIAMINE HCL 100 MG TABLET PO SCH (09:00)
[2020-05-12] MEDS: Levofloxacin 750mg IV 750 MG/150 ML BAG IV SCH (12:02)
--- NOTE | 2020-05-12 13:07 | P.PN ---
Date of Service: 05/12/20 Subjective: Patient is a 40-year-old male who presents with multiple episodes of dark colored stool and fatigue. Patient had EGD done and found to have upper GI bleed, esophageal varices, and cirrhosis of the liver. Patient also with Hepatitis C which I have been consulted for. Patient tested positive for Covid 19. Denies nausea, diarrhea. Tolerating full liquid diet. Patient with fever of 101.1 Objective: Temp Pulse Resp BP Pulse Ox 101.1 F H 86 18 126/76 94 05/12/20 12:30 05/12/20 12:00 05/12/20 12:00 05/12/20 12:00 05/12/20 12:00 Labs: No new labs available. Abd/pelvis CT 05/07: EXAM DESCRIPTION: CT - Abdomen Pelvis W Contrast - 05/07/2020 5:52 pm CLINICAL HISTORY: Abdominal pain diarhea COMPARISON: none. TECHNIQUE: Computed axial tomography of the abdomen pelvis was obtained. 100 cc Isovue-300 was administered intravenously. Oral contrast was not requested which limits evaluation of bowel. All CT scans are performed using dose optimization technique as appropriate and may include automated exposure control or mA/KV adjustment according to patient size. FINDINGS: Markedly cirrhotic liver. The portal vein is patent. The spleen measures 14 centimeters. Pancreas is normal size and density. Small amount peripancreatic fluid. Small bilateral nonobstructing renal calculi. Small renal cysts There is no evidence of diverticulitis. Normal appendix Minimal ascites. Small hiatal hernia IMPRESSION: Marked cirrhosis Small amount peripancreatic fluid may be related to hypoalbuminemia or mild pancreatitis Small nonobstructing renal calculi ROS: General: Awake, alert, no acute distress CV: S1,S2 RESP: Good breath sounds ABD: Round, distended, bowel sounds present Assessment and plan: Pneumonia and Fevers secondary to Covid 19 infection Procalcitonin negative, no leukocytosis, from ID standpoint can DC home without antibiotics Cirrhosis, patient to follow up with GI outpatient Hepatitis C, From ID standpoint LFTs not elevated enough to treat acutely, recommend patient to follow up with GI or [facility] outpatient Blood cultures negative Will continue to monitor Patient discussed with Dr. Saini
--- NOTE | 2020-05-12 14:30 | P.PN ---
Subjective Date of Service: 05/12/20 Chief Complaint: Melena; fever; cough, COVID19 Subjective: No new changes (Continued fever spikes to 101.1F today. ID consulted. SBP have been 108 to 126.) Physical Examination - Vital Signs Temperature: 100.6 F Blood Pressure: 111/67 Pulse: 84 Respirations: 19 Pulse Ox (%): 96 - Studies Medications List Reviewed: Yes Assessment And Plan - Current Problems (Diagnosis) (1) COVID-19 Current Visit: Yes Status: Acute Comment: Now with fever spikes to 101F (2) Abnormal CT of the abdomen Current Visit: Yes Status: Acute (3) Esophageal varices Current Visit: Yes Status: Acute Comment: Noted on review of CT with radiologist. (4) Cirrhosis Current Visit: Yes Status: Acute (5) Melena Current Visit: Yes Status: Acute Comment: None since admission. Hgb stable. (6) Upper GI bleeding Current Visit: Yes Status: Acute (7) Upper respiratory infection Current Visit: Yes Status: Acute - Plan REC: 1) goal hgb 7-8 (tranfuse if hgb <7) 2) Protonix IV q 12 dosing 3) continue IV Octreotide and IV antibiotics 4) Coreg 12.5 mg dose bid with goal SBP <= 110 5) EGD if emergency needed, o/w when COVID19 negative for safety 6) Thiamine, Folate po 7) DT precautions & prn BDZs with AA / rehab on discharge 8) COVID19 therapy if possible Physician Review Additional Text: Assessment Patient is a 40-year-old male with a known past medical history of chronic alcohol consumption who presented to the hospital with melenic stools. Was admitted to the ICU with PPI and octreotide infusion along with ceftriaxone. He is hemodynamically stable now. No transfusion was required during this stay. GI was consulted and optimized his regimen to include Coreg for possible esophageal varices and portal HTN. Tested + for coronavirus. No respiratory issues but spiked a high-grade fever since 05/08. CXR showed LLL PNA. Blood cultures negative to date. He tested positive for HepC, viral load > 25,000. ID consulted Upper GI bleeding Decompensated cirrhosis with ascites and possibly esophageal varices Pneumonia History of excessive alcohol consumption History of NSAIDs COVID 19 Plan: Follow up ID recommendations Continue levofloxacin IV Continue PPI IV BID and octreotide Continue coreg at 12.5 mg b.i.d. with goal SBP of 110 or less Monitor H&H with goal hemoglobin greater than 7-8 Will add thiamine and folic acid as per GI recommendations Defer endoscopic plan to GI
[2020-05-12 15:58] VITALS: BP 114/68; TEMP 100.1
--- NOTE | 2020-05-12 16:40 | P.DS ---
Admission Date: 05/07/20 Discharge Date: 05/12/20 Disposition: ROUTINE DISCHARGE Discharge Condition: GOOD Reason for Admission: Melena; fever; cough, COVID19 - Problems (1) Cirrhosis Current Visit: Yes Status: Acute (2) Alcoholic cirrhosis of liver with ascites Current Visit: Yes Status: Acute (3) NSAID long-term use Current Visit: Yes Status: Acute (4) Upper GI bleeding Current Visit: Yes Status: Acute (5) Pneumonia Current Visit: Yes Status: Acute Brief History of Present Illness: Please refer to H&P Hospital Course: Patient is a 40-year-old male who was admitted to the hospital with melenic stools. Was placed on PPI and octreotide infusion along with ceftriaxone IV due to presence decompensated cirrhosis. CT abdomen and pelvis captured a ascites, and patient was visibly jaundiced. The tolerated treatment well. GI was consulted. Patient was deemed high risk for colonoscopy after tested positive COVID 19, which is being tested routinely. Did not have any respiratory symptoms but had daily fever spikes. Of note, patient also had positive hep C with viral load more than 25,000. Infection Disease was consulted and recommended no hep C treatment at this time unless there was significant abnormality of liver function test. ID also recommended no antibiotics upon discharge since patient's procalcitonin was negative. Vital Signs/Physical Exam: Temp Pulse Resp BP Pulse Ox 100.1 F 80 18 114/68 94 05/12/20 15:57 05/12/20 15:57 05/12/20 15:57 05/12/20 15:57 05/12/20 15:57 General: Alert, In no apparent distress, Cooperative HEENT: Atraumatic, Normocephalic, EOMI, Sclerae nonicteric Neck: Supple Neurological: Normal speech, Sensation intact, Normal affect Laboratory Data at Discharge: WBC 2.2 K/uL (4.3-10.9) L 05/10/20 09:00 Hgb 9.3 g/dL (13.6-17.9) L 05/10/20 09:00 Hct 28.2 % (39.6-49.0) L 05/10/20 09:00 Plt Count 146 K/uL (152-406) L 05/10/20 09:00 PT 13.9 SECONDS (9.5-12.5) H 05/08/20 11:05 INR 1.18 05/08/20 11:05 APTT 35.4 SECONDS (24.3-36.9) 05/08/20 11:05 Sodium 140 mmol/L (136-145) 05/10/20 10:59 Potassium 3.6 mmol/L (3.5-5.1) 05/10/20 10:59 BUN 5 mg/dL (7-18) L 05/10/20 10:59 Creatinine 0.73 mg/dL (0.55-1.3) 05/10/20 10:59 Glucose 76 mg/dL (74-106) 05/10/20 10:59 Phosphorus 2.2 mg/dL (2.5-4.9) L 05/08/20 11:05 Magnesium 1.6 mg/dL (1.8-2.4) L 05/08/20 11:05 Total Bilirubin 0.7 mg/dL (0.2-1.0) 05/10/20 10:59 AST 116 U/L (15-37) H 05/10/20 10:59 ALT 74 U/L (12-78) 05/10/20 10:59 Alkaline Phosphatase 121 U/L (45-117) H 05/10/20 10:59 Lipase 225 U/L (73-393) 05/07/20 17:20 Home Medications: Acetaminophen [Tylenol*] 650 mg PO Q6H PRN tab 05/12/20 Folic Acid 1 mg PO DAILY #30 tablet 05/12/20 Pantoprazole [Protonix Tab*] 40 mg PO BID #60 tab 05/12/20 Thiamine HCl [Vitamin B-1*] 100 mg PO DAILY #30 tablet 05/12/20 carvediloL [Coreg*] 12.5 mg PO BID #60 tab 05/12/20 New Medications: carvediloL [Coreg*] 12.5 mg PO BID #60 tab Folic Acid 1 mg PO DAILY #30 tablet Pantoprazole [Protonix Tab*] 40 mg PO BID #60 tab Thiamine HCl [Vitamin B-1*] 100 mg PO DAILY #30 tablet Diet: Regular Followup: Austin Saini MD [ACTIVE - CAN ADMIT] - 1-2 Weeks (infectious disease doctor- call to schedule an appointment ) Donovan Clark MD [ASSOCIATE-ACTIVE - CAN ADMIT] - 1-2 Weeks ( doctor- call to schedule an appointment )
[2020-05-12 17:31] LABS: Absolute Lymphocytes (CBC) 1.1 K/uL (0.7-4.9); Basophils % 0.9 % (0-1.3); Hematocrit 29.3 % (39.6-49.0); Lymphocytes % 36.4 % (15.3-44.8); MPV 9.2 fL (7.6-11.3); RBC Red Blood Cell Count 3.54 M/uL (4.33-5.43)
[2020-05-23 21:08] LABS: Hep C Virus RNA (PCR)log 5.47 log IU/mL
--- NOTE | 2020-05-28 19:27 | CON ---
Date of Consultation: 05/08/2020 Reason For Consultation: Melena. History Of Present Illness: The patient is a 40-year-old male with history of alcohol abuse , who presented to the hospital with melena, fever, and cough. The patient has been feeling weak, de cided to come to the hospital for further evaluation. Does take NSAIDs for pain daily. He has been doing this for quite a number of months it appears. Hemoglobin is 9.0, is slightly uremic. Patient does admit to excessive alcohol use. Patient had COVID testing approximately a week ago, which was p ositive. Patient also has positive contact with COVID-19 and he was going to be rechecked at this ti ne since he may need endoscopy. Home Medications: None. Allergies: NONE. Past Medical History: Significant for pneumonia in the past. He also has heavy alcohol use. Family History: Father . Social History: Positive for alcohol. He smokes occasionally. Physical Examination: Vital Signs: Temperature of 100.2, blood pressure 120/80, pulse in 89, respirations 22, O2 saturatio n 97%. Laboratory Data: On the , patient had a white count of 2.1, hemoglobin of 8.8, hematocrit 27, pl atelet count 131, polys of 49%, lymphocytes 45%, monocytes 6%, PT of 13.7, INR of 1.16, PTT of 35.7. Sodium 140, potassium 3.9, chloride 112, bicarb 22, BUN 9, creatinine of 0.7, glucose 101, calcium 7 .3, phosphorus 2.2, magnesium 1.6, iron of 33, total bilirubin 0.5, AST of 186, ALT of 95, alkaline p hosphatase 130, total protein 7.2, albumin 2.1, vitamin B12 1211, folate of 14.6. Hepatitis C antibo dy reactive. Hepatitis C RNA is 296,000 international units/mL. Hepatitis C log is 5.47. H pylori antigen was detected. Chest x-ray, moderate lingular pneumonia. CT shows marked cirrhosis, small am ount of peripancreatic fluid may related to hypoalbuminemia. Mild pancreatitis and small nonobstruct ing renal calculi noted. Impression: 1.Melena, none since admission. Possible gastritis, peptic ulcer disease versus esophageal varices. I have reviewed CT of the abdomen with Radiology and he notes specifically patient has cirrhosis wi th paraesophageal varices noted on CT scan though not knew official report yet. Therefore, patient s hould be treated for esophageal varices bleed especially in light of his marked alcohol hi story. 2.Coronavirus disease 2019 positive in isolation, which would preclude esophagogastroduodenoscopy si nce he will be at increased risk to infect staff since esophagogastroduodenoscopy is a high-risk proc edure. Patient's breathing and possibly coughing in the air aerosolized viral particles t hat would infect the staff. Recommendations: 1.Continue IV PPI. 2.Continue IV octreotide. 3.Start Coreg to 6.25 mg b.i.d. and titrate up for a goal systolic blood pressure of less than 110. 4.Give IV antibiotics ceftriaxone in the setting of possible variceal bleed as well. 5.EGD when COVID-19 testing is negative unless emergency. The patient has noticed no melena since a dmission. KELLY/ARYAN Voice ID: [id number] Report ID: [id number]
== END 2020-05-12 18:20 | disposition home or self-care (01) | DRG 177 ==
LOC: ER 15:45 → ERHOLD 18:17 → 3RD-ICU 21:09 → 4TH 05-08 07:30
PROVIDERS: ADMIT Internal Medicine; ATTEND Internal Medicine
PROC: 8E0ZXY6 Isolation (ICD-10-PCS; principal; 2020-05-07)
DX: U07.1 COVID-19 (principal); I85.01 Esophageal varices with bleeding; J12.89 Other viral pneumonia; K92.1 Melena; K70.31 Alcoholic cirrhosis of liver with ascites; J06.9 Acute upper respiratory infection, unspecified; F17.210 Nicotine dependence, cigarettes, uncomplicated; B19.20 Unspecified viral hepatitis C without hepatic coma; R93.5 Abnormal findings on diagnostic imaging of other abdominal regions, including retroperitoneum; Z79.899 Other long term (current) drug therapy
CPT/HCPCS: 36415; 71045; 74177; 80048; 80053; 80074; 80076; 82105; 82274; 82565; 82607; 82746; 82947; 83036; 83540; 83605; 83690; 83735; 84100; 84145; 85014; 85018; 85025; 85044; 85610; 85730; 86850; 86900; 86901; 87040; 87338; 87389; 87522; 96361; 96365; 96366; 96375; 99285; C9113; J0456; J0696; J2354; J7030; J7040; J7042; Q9967; U0002

== ENCOUNTER → 2024-01-28 | Emergency (ER) | payer SELFPAY ==
[~2024-01-28] MED LIST: FUROSEMIDE 20 MG/ 2ML VIAL ONE; MORPHINE 4 MG/ML SYR ONE
--- OUTSIDE RECORDS SUMMARY | 2024-01-28 12:59 | XMS REPORT | Continuity of Care Document ---
Author Name Unknown Address [address] [place] [address] [facility] thconnect Address [address] [place] [address] Care Team Providers Care Pick Pack Worker Name Role Phone PCP, PATIENT DOES NOT HAVE A Primary Care Physic viviane Unavailable Fidencio SHEN Attending Clinician Unavailable Fidencio Zelaya Attending Clinician [phone] Brandy Hayden RN Attending Clinician [phone] Nova Lopez Attending Clinician [phone] Doctor Unassigned, Cane Beds Attending Clinician U Laura Harrington LVN Attending Clinician [phone] Jarvis Martinez DO Attending Clinician [phone] Dewayne Alvarado MD Attending Clinician [phone] Cass Winn MD Attending Clinician [phone] DEWAYNE ALVARADO Attending Clinician UnavailSilverio Le MD Attending Clinician [phone] Fidencio SHEN Admitting Clinician Unavailable Cass Winn MD Admitting Clinician [phone] CASS WINN Admitting Clinician Unavailable Payers Payer Name Policy Type Policy Number Effective Date Expirati on Date Source MEDICAID ALIEN PENDING PENDING 2024 00:00:00 Problems Condition Name Condition Details Condition Category Status Onset Date Resolution Date Last Treatment Date Treating Clinician Comments Source Esophageal varices without bleeding, unspecifie d esophageal varices type Esophageal varices without bleeding, unspecifie d esophageal varices type Disease Active 12-09 00:00: 00 Overview: Formattin g of this note might be different from the original. Added automatic ally from request for surgery [id number] [facility] Obesity (BMI 30-39.9) Obesity (BMI 30-39.9) Disease Active 11-28 00:00: 00 [facility] Dizziness Dizziness Disease Active 11-27 00:00: 00 [facility] Acute anemia Acute anemia Disease Active 11-27 00:00: 00 Overview: Formattin g of this note might be different from the original. Added automatic ally from request for surgery [id number] [facility] Allergies, Adverse Reactions, Alerts Allergy Name Allergy Type Status Severity Reaction(s) Onset Date Inactive Date Treating Clinician Comments Source NO KNOWN ALLERGIE S Drug Class Active [facility] Social History Social Habit Start Date Stop Date Quantity Comments Source History of tobacco use Passive smoker [facility] History SDOH Social Connections Get Together [facility] History SDOH Social Connections Hoahaoism [facility] History SDOH Social Connections Membership [facility] History SDOH Social Connections Meetings [facility] Gender identity [facility] 2024-01-25 00:00:00 2024-01-25 00:00:00 .57 /d [facility] Exposure to SARS-CoV-2 (event) 2022-12-29 00:00:00 2023-01-08 10:05:00 Not sure [facility] History of Social function 2022-11-29 00:00:00 2022-11-29 00:00:00 [facility] History SDOH Alcohol Frequency 2022-11-28 00:00:00 2022-11-28 00:00:00 5 [facility] History SDOH Alcohol Std Drinks 2022-11-28 00:00:00 2022-11-28 00:00:00 1 [facility] History SDOH Alcohol Binge 2022-11-28 00:00:00 2022-11-28 00:00:00 1 [facility] History SDOH Social Connections Phone 2022-11-28 00:00:00 2022-11-28 00:00:00 2 [facility] History SDOH Social Connections Living 2022-11-28 00:00:00 2022-11-28 00:00:00 3 [facility] History SDOH Physical Activity DPW 2022-11-28 00:00:00 2022-11-28 00:00:00 7 [facility] History SDOH Physical Activity MPS 2022-11-28 00:00:00 2022-11-28 00:00:00 3 [facility] History SDOH Financial 2022-11-28 00:00:00 2022-11-28 00:00:00 5 [facility] History SDOH Food Worry 2022-11-28 00:00:00 2022-11-28 00:00:00 1 [facility] History SDOH Food Scarcity 2022-11-28 00:00:00 2022-11-28 00:00:00 1 [facility] History SDOH Transport Med 2022-11-28 00:00:00 2022-11-28 00:00:00 2 [facility] History SDOH Transport Non-Med 2022-11-28 00:00:00 2022-11-28 00:00:00 2 [facility] Tobacco use and exposure 2022-11-27 00:00:00 2022-11-27 00:00:00 Smokeless tobacco non-user [facility] Sex Assigned At 1980 00:00:00 1980 00:00:00 [facility] Smoking Status Start Date Stop Date Source Occasional tobacco smoker 2022-11-27 00:00:00 [facility] Medications Ordered Medication Name Filled Medication Name Start Date Stop Date Current Medication? Ordering Clinician Indication Dosage Frequency Signature (SIG) Comments Components Source spironolact one (ALDACTONE) tablet 50 mg 01-25 14:00: 00 Yes 50mg 50 mg, Oral, DAILY, First dose on Fri01/26/24 at 0900, Until Discontinu ed, Routine [facility] ketorolac (TORADOL) injection 15 mg 01-24 23:15: 00 01-24 22:22 :00 No 15mg 15 mg, Slow IV Push, ONCE, 1 dose, [facility] Fri01/25/24 at 1815[facility] 40 mg 01-24 22:15: 00 01-24 22:21 :00 No 40mg 40 mg, IV Push, ONCE, 1 dose, On Fri01/25/24 at 1715, [facility] sp[facility] 100 mg tablet 01-24 00:00: 00 Yes [id number] 100mg Take 1 tablet by mouth daily. [facility] furosemide 40 mg tablet 01-24 00:00: 00 Yes [id number] 40mg Take 1 tablet by mouth daily. [facility] spironolact one (ALDACTONE) tablet 25 mg 01-20 20:30: 00 01-20 19:49 :00 No 25mg 25 mg, Oral, ONCE, 1 dose, On Fri01/21/24 at 1430, Routine [facility] furosemide (LASIX) tablet 20 mg 01-20 20:30: 00 01-20 19:49 :00 No 20mg 20 mg, Oral, ONCE, 1 dose, On Fri01/21/24 at 1430, Routine [facility] iopamidol (ISOVUE 370-500 mL) injection 100 mL 01-20 18:15: 00 01-20 18:15 :00 No [id number] 100mL 100 mL, Intravenou s, ONCE, 1 dose, On Fri01/21/24 at 1215, Routine [facility] furosemide 20 mg tablet 01-20 00:00: 00 Yes [id number] 20mg Take 1 tablet by mouth every morning. [facility] furosemide 20 mg tablet 01-20 00:00: 00 Yes [id number] 20mg Take 1 tablet by mouth every morning. [facility] spironolact one 25 mg tablet 2023-0 3 00:00: 00 02-20 04:59 :00 Yes [id number] 25mg Take 1 tablet by mouth daily for 30 days. [facility] spironolact one 25 mg tablet 2023-0 306 00:00: 00 02-20 04:59 :00 Yes [id number] 25mg Take 1 tablet by mouth daily for 30 days. [facility] spironolact one 50 mg tablet 0 01-08 00:00: 00 Yes [id number] 50mg Take 1 tablet by mouth daily. [facility] propranoloL 10 mg tablet 01-08 00:00: 00 Yes [id number] 10mg Take 1 tablet by mouth 2 (two) times daily. [facility] furosemide 40 mg tablet 01-08 00:00: 00 Yes [id number] 40mg Take 1 tablet by mouth daily. [facility] omeprazole 40 mg capsule 01-08 00:00: 00 Yes [id number] 40mg Take 1 capsule by mouth daily. [facility] acamprosate 333 mg tablet 01-08 00:00: 00 Yes [id number] 666mg Take 2 tablets by mouth 3 (three) times daily. [facility] lactulose 10 gram/15 mL solution 01-08 00:00: 00 Yes [id number] 15mL Take 15 mL by mouth 2 (two) times daily. [facility] spironolact one 50 mg tablet 0 01-08 00:00: 00 Yes [id number] 50mg Take 1 tablet by mouth daily. [facility] propranoloL 10 mg tablet 0 01-08 00:00: 00 Yes [id number] 10mg Take 1 tablet by mouth 2 (two) times daily. [facility] furosemide 40 mg tablet 0 01-08 00:00: 00 Yes [id number] 40mg Take 1 tablet by mouth daily. [facility] omeprazole 40 mg capsule 0 01-08 00:00: 00 Yes [id number] 40mg Take 1 capsule by mouth daily. [facility] acamprosate 333 mg tablet 01-08 00:00: 00 Yes [id number] 666mg Take 2 tablets by mouth 3 (three) times daily. [facility] lactulose 10 gram/15 mL solution 01-08 00:00: 00 Yes [id number] 15mL Take 15 mL by mouth 2 (two) times daily. [facility] spironolact one 50 mg tablet 01-08 00:00: 00 Yes [id number] 50mg Take 1 tablet by mouth daily. [facility] propranoloL 10 mg tablet 01-08 00:00: 00 Yes [id number] 10mg Take 1 tablet by mouth 2 (two) times daily. [facility] furosemide 40 mg tablet 01-08 00:00: 00 Yes [id number] 40mg Take 1 tablet by mouth daily. [facility] omeprazole 40 mg capsule 01-08 00:00: 00 Yes [id number] 40mg Take 1 capsule by mouth daily. [facility] acamprosate 333 mg tablet 01-08 00:00: 00 Yes [id number] 666mg Take 2 tablets by mouth 3 (three) times daily. [facility] lactulose 10 gram/15 mL solution 01-08 00:00: 00 Yes [id number] 15mL Take 15 mL by mouth 2 (two) times daily. [facility] spironolact one 50 mg tablet 01-08 00:00: 00 Yes [id number] 50mg Take 1 tablet by mouth daily. [facility] propranoloL 10 mg tablet 01-08 00:00: 00 Yes [id number] 10mg Take 1 tablet by mouth 2 (two) times daily. [facility] furosemide 40 mg tablet 0 01-08 00:00: 00 Yes [id number] 40mg Take 1 tablet by mouth daily. [facility] omeprazole 40 mg capsule 0 01-08 00:00: 00 Yes [id number] 40mg Take 1 capsule by mouth daily. [facility] acamprosate 333 mg tablet 01-08 00:00: 00 Yes [id number] 666mg Take 2 tablets by mouth 3 (three) times daily. [facility] lactulose 10 gram/15 mL solution 01-08 00:00: 00 Yes [id number] 15mL Take 15 mL by mouth 2 (two) times daily. [facility] spironolact one 50 mg tablet 01-08 00:00: 00 Yes [id number] 50mg Take 1 tablet by mouth daily. [facility] propranoloL 10 mg tablet 01-08 00:00: 00 Yes [id number] 10mg Take 1 tablet by mouth 2 (two) times daily. [facility] furosemide 40 mg tablet 01-08 00:00: 00 Yes [id number] 40mg Take 1 tablet by mouth daily. [facility] omeprazole 40 mg capsule 01-08 00:00: 00 Yes [id number] 40mg Take 1 capsule by mouth daily. [facility] acamprosate 333 mg tablet 01-08 00:00: 00 Yes [id number] 666mg Take 2 tablets by mouth 3 (three) times daily. [facility] lactulose 10 gram/15 mL solution 01-08 00:00: 00 Yes [id number] 15mL Take 15 mL by mouth 2 (two) times daily. [facility] spironolact one 50 mg tablet 01-08 00:00: 00 Yes [id number] 50mg Take 1 tablet by mouth daily. [facility] propranoloL 10 mg tablet 01-08 00:00: 00 Yes [id number] 10mg Take 1 tablet by mouth 2 (two) times daily. [facility] furosemide 40 mg tablet 01-08 00:00: 00 Yes [id number] 40mg Take 1 tablet by mouth daily. [facility] omeprazole 40 mg capsule 0 01-08 00:00: 00 Yes [id number] 40mg Take 1 capsule by mouth daily. [facility] acamprosate 333 mg tablet 01-08 00:00: 00 Yes [id number] 666mg Take 2 tablets by mouth 3 (three) times daily. [facility] lactulose 10 gram/15 mL solution 01-08 00:00: 00 Yes [id number] 15mL Take 15 mL by mouth 2 (two) times daily. [facility] spironolact one 50 mg tablet 01-08 00:00: 00 Yes [id number] 50mg Take 1 tablet by mouth daily. [facility] propranoloL 10 mg tablet 01-08 00:00: 00 Yes [id number] 10mg Take 1 tablet by mouth 2 (two) times daily. [facility] furosemide 40 mg tablet 01-08 00:00: 00 Yes [id number] 40mg Take 1 tablet by mouth daily. [facility] omeprazole 40 mg capsule 01-08 00:00: 00 Yes [id number] 40mg Take 1 capsule by mouth daily. [facility] acamprosate 333 mg tablet 01-08 00:00: 00 Yes [id number] 666mg Take 2 tablets by mouth 3 (three) times daily. [facility] lactulose 10 gram/15 mL solution 01-08 00:00: 00 Yes [id number] 15mL Take 15 mL by mouth 2 (two) times daily. [facility] magnesium sulfate in water 4 gram/50 mL (8 %) IV Piggyback 4 g 12-01 14:00: 00 12-01 17:44 :00 No 4g 4 g, IV Piggyback, at 25 mL/hr Administer over 120 Minutes, ONCE, 1 dose, On 12/01/22 at 0800, Routine [facility] lactulose 10 gram/15 mL solution 12-01 00:00: 00 Yes [id number] 15mL Take 15 mL by mouth in the morning and 15 mL in the evening. [facility] propranoloL 10 mg tablet 12-01 00:00: 00 Yes [id number] 10mg Take 1 tablet by mouth in the morning and 1 tablet in the evening. [facility] spironolact one 50 mg tablet 2022-0 1-15 00:00: 00 Yes [id number] 50mg Take 1 tablet by mouth in the morning. [facility] lactulose 10 gram/15 mL solution 2022-0 1-15 00:00: 00 Yes [id number] 15mL Take 15 mL by mouth in the morning and 15 mL in the evening. [facility] propranoloL 10 mg tablet 2022-0 1-15 00:00: 00 Yes [id number] 10mg Take 1 tablet by mouth in the morning and 1 tablet in the evening. [facility] spironolact one 50 mg tablet 2022-0 1-15 00:00: 00 Yes [id number] 50mg Take 1 tablet by mouth in the morning. [facility] lactulose 10 gram/15 mL solution 2022-0 1-15 00:00: 00 Yes [id number] 15mL Take 15 mL by mouth in the morning and 15 mL in the evening. [facility] propranoloL 10 mg tablet 2022-0 1-15 00:00: 00 Yes [id number] 10mg Take 1 tablet by mouth in the morning and 1 tablet in the evening. [facility] spironolact one 50 mg tablet 2022-0 1-15 00:00: 00 Yes [id number] 50mg Take 1 tablet by mouth in the morning. [facility] lactulose 10 gram/15 mL solution 2022-0 -15 00:00: 00 Yes [id number] 15mL Take 15 mL by mouth in the morning and 15 mL in the evening. [facility] propranoloL 10 mg tablet 3-0 1-15 00:00: 00 Yes [id number] 10mg Take 1 tablet by mouth in the morning and 1 tablet in the evening. [facility] spironolact one 50 mg tablet 3-0 1-15 00:00: 00 Yes [id number] 50mg Take 1 tablet by mouth in the morning. [facility] lactulose 10 gram/15 mL solution 3-0 1-15 00:00: 00 Yes [id number] 15mL Take 15 mL by mouth in the morning and 15 mL in the evening. [facility] propranoloL 10 mg tablet 3-0 1-15 00:00: 00 Yes [id number] 10mg Take 1 tablet by mouth in the morning and 1 tablet in the evening. [facility] spironolact one 50 mg tablet 2022-0 1-15 00:00: 00 Yes [id number] 50mg Take 1 tablet by mouth in the morning. [facility] lactulose 10 gram/15 mL solution 3-0 -15 00:00: 00 Yes [id number] 15mL Take 15 mL by mouth in the morning and 15 mL in the evening. [facility] propranoloL 10 mg tablet 2022-0 1-15 00:00: 00 Yes [id number] 10mg Take 1 tablet by mouth in the morning and 1 tablet in the evening. [facility] spironolact one 50 mg tablet 2022-0 -15 00:00: 00 Yes [id number] 50mg Take 1 tablet by mouth in the morning. [facility] lactulose 10 gram/15 mL solution 2022-0 15 00:00: 00 Yes [id number] 15mL Take 15 mL by mouth in the morning and 15 mL in the evening. [facility] propranoloL 10 mg tablet 2022-0 -15 00:00: 00 Yes [id number] 10mg Take 1 tablet by mouth in the morning and 1 tablet in the evening. [facility] spironolact one 50 mg tablet 2022-0 -15 00:00: 00 Yes [id number] 50mg Take 1 tablet by mouth in the morning. [facility] lactulose 10 gram/15 mL solution 2022-0 -15 00:00: 00 Yes [id number] 15mL Take 15 mL by mouth in the morning and 15 mL in the evening. [facility] propranoloL 10 mg tablet 3-0 -15 00:00: 00 Yes [id number] 10mg Take 1 tablet by mouth in the morning and 1 tablet in the evening. [facility] spironolact one 50 mg tablet 3-0 1-15 00:00: 00 Yes [id number] 50mg Take 1 tablet by mouth in the morning. [facility] furosemide 40 mg tablet 2023-0 1-15 00:00: 00 03-02 04:59 :00 No [id number] 40mg Take 1 tablet by mouth in the morning for 90 days. [facility] furosemide 40 mg tablet 2022-0 1-15 00:00: 00 03-02 04:59 :00 No [id number] 40mg Take 1 tablet by mouth in the morning for 90 days. [facility] furosemide 40 mg tablet 2022-0 1-15 00:00: 00 03-02 04:59 :00 No [id number] 40mg Take 1 tablet by mouth in the morning for 90 days. [facility] furosemide 40 mg tablet 2022-0 1-15 00:00: 00 03-02 04:59 :00 No [id number] 40mg Take 1 tablet by mouth in the morning for 90 days. [facility] furosemide 40 mg tablet 2022-0 1-15 00:00: 00 03-02 04:59 :00 No [id number] 40mg Take 1 tablet by mouth in the morning for 90 days. [facility] furosemide 40 mg tablet 2022-0 1-15 00:00: 00 03-02 04:59 :00 No [id number] 40mg Take 1 tablet by mouth in the morning for 90 days. [facility] furosemide 40 mg tablet 0 1-15 00:00: 00 03-02 04:59 :00 No [id number] 40mg Take 1 tablet by mouth in the morning for 90 days. [facility] furosemide 40 mg tablet 2022-0 1-15 00:00: 00 03-02 04:59 :00 No [id number] 40mg Take 1 tablet by mouth in the morning for 90 days. [facility] spironolact one 50 mg tablet 2022-0 1-15 00:00: 00 12-01 00:00 :00 No [id number] 100mg Take 2 tablets by mouth in the morning for 90 days. [facility] spironolact one 50 mg tablet 2022-0 1-15 00:00: 00 12-01 00:00 :00 No [id number] 100mg Take 2 tablets by mouth in the morning for 90 days. [facility] lactulose (CEPHULAC) solution 15 mL 11-30 23:15: 00 Yes 15mL 15 mL, Oral, BID, First dose (after last modificati on) on 11/30/22 at 1715, Until Discontinu ed, Routine [facility] lactulose (CEPHULAC) solution 15 mL 11-30 23:15: 00 12-02 03:02 :05 No 15mL 15 mL, Oral, BID, First dose (after last modificati on) on 11/30/22 at 1715, Until Discontinu ed, Routine [facility] spironolact one (ALDACTONE) tablet 50 mg 11-30 16:00: 00 Yes 50mg 50 mg, Oral, DAILY, First dose on 11/30/22 at 1000, Until Discontinu ed, Routine [facility] furosemide (LASIX) tablet 40 mg 11-30 16:00: 00 Yes 40mg 40 mg, Oral, DAILY, First dose on 11/30/22 at 1000, Until Discontinu ed, [facility] spironolact one (ALDACTONE) tablet 50 mg 11-30 16:00: 00 12-02 03:02 :05 No 50mg 50 mg, Oral, DAILY, First dose on 11/30/22 at 1000, Until Discontinu ed, Routine [facility] furosemide (LASIX) tablet 40 mg 11-30 16:00: 00 12-02 03:02 :05 No 40mg 40 mg, Oral, DAILY, First dose on 11/30/22 at 1000, Until Discontinu ed, Routine [facility] pantoprazol e (PROTONIX) injection 40 mg 11-30 02:00: 00 Yes 40mg 40 mg, Slow IV Push, Q12H, First dose on Fri11/29/22 at 2000, Until Discontinu ed [facility] pantoprazol e (PROTONIX) injection 40 mg 11-30 02:00: 00 12-02 03:02 :05 No 40mg 40 mg, Slow IV Push, Q12H, First dose on Fri11/29/22 at 2000, Until Discontinu ed [facility] pantoprazol e 40 mg EC tablet 14 00:00: 00 03-01 04:59 :00 No [id number] 40mg Take 1 tablet by mouth in the morning and 1 tablet in the evening. Do all this for 90 days. [facility] pantoprazol e 40 mg EC tablet 11-30 00:00: 00 03-01 04:59 :00 No [id number] 40mg Take 1 tablet by mouth in the morning and 1 tablet in the evening. Do all this for 90 days. [facility] pantoprazol e 40 mg EC tablet 11-30 00:00: 00 03-01 04:59 :00 No [id number] 40mg Take 1 tablet by mouth in the morning and 1 tablet in the evening. Do all this for 90 days. [facility] pantoprazol e 40 mg EC tablet 11-30 00:00: 00 03-01 04:59 :00 No [id number] 40mg Take 1 tablet by mouth in the morning and 1 tablet in the evening. Do all this for 90 days. [facility] pantoprazol e 40 mg EC tablet 11-30 00:00: 00 03-01 04:59 :00 No [id number] 40mg Take 1 tablet by mouth in the morning and 1 tablet in the evening. Do all this for 90 days. [facility] pantoprazol e 40 mg EC tablet 11-30 00:00: 00 03-01 04:59 :00 No [id number] 40mg Take 1 tablet by mouth in the morning and 1 tablet in the evening. Do all this for 90 days. [facility] pantoprazol e 40 mg EC tablet 14 00:00: 00 03-01 04:59 :00 No [id number] 40mg Take 1 tablet by mouth in the morning and 1 tablet in the evening. Do all this for 90 days. [facility] pantoprazol e 40 mg EC tablet 11-30 00:00: 00 03-01 04:59 :00 No [id number] 40mg Take 1 tablet by mouth in the morning and 1 tablet in the evening. Do all this for 90 days. [facility] ciprofloxac in HCl 500 mg tablet 11-30 00:00: 00 12-04 05:59 :00 No [id number] 500mg Take 1 tablet by mouth every 12 (twelve) hours for 3 days. [facility] ciprofloxac in HCl 500 mg tablet 11-30 00:00: 00 12-04 05:59 :00 No [id number] 500mg Take 1 tablet by mouth every 12 (twelve) hours for 3 days. [facility] lidocaine 2% viscous (LIDOCAINE VISCOUS) 2 % solution 5 mL 11-30 00:00: 00 12-02 03:02 :05 No 5mL 5 mL, Oral, Q6H, 12 doses, First dose on Fri11/29/22 at 1800, Last dose on Fri12/02/22 at 1200, Routine [facility] lidocaine 2% viscous (LIDOCAINE VISCOUS) 2 % solution 5 mL 11-30 00:00: 00 12-02 23:59 :00 No 5mL 5 mL, Oral, Q6H, 12 doses, First dose on Fri11/29/22 at 1800, Last dose on Fri12/02/22 at 1200, Routine [facility] acetaminoph en-codeine (TYLENOL W/CODEINE) 300 mg-30 mg /12.5 mL elixir 10 mL 11-29 22:14: 46 12-02 03:02 :05 No 10mL 10 mL, Oral, Q6HPRN, Starting on Fri11/29/22 at 1614, Until Fri12/01/22 at 2102, Routine, Pain (scale 7-10) [facility] acetaminoph en-codeine (TYLENOL W/CODEINE) 300 mg-30 mg /12.5 mL elixir 10 mL 11-29 22:14: 46 12-02 22:13 :46 No 10mL 10 mL, Oral, Q6HPRN, Starting on Fri11/29/22 at 1614, Until Fri12/02/22 at 1613, Routine, Pain (scale 7-10) [facility] iron sucrose (VENOFER) 200 mg in NaCl 0.9% (NS) 100 mL infusion 11-29 15:00: 00 12-04 14:59 :00 No 200mg 200 mg, IV Infusion, DAILY, Administer over 1.5 Hours, First dose on Fri11/29/22 at 0900, For 5 doses [facility] iron sucrose (VENOFER) 200 mg in NaCl 0.9% (NS) 100 mL infusion 11-29 15:00: 00 12-02 03:02 :05 No 200mg 200 mg, IV Infusion, DAILY, Administer over 1.5 Hours, First dose on Fri11/29/22 at 0900, For 5 doses [facility] iopamidol (ISOVUE 370-500 mL) injection 100 mL 11-29 02:00: 00 11-29 02:00 :00 No [id number] 100mL 100 mL, Intravenou s, ONCE, 1 dose, On Fri11/28/22 at 2000, Routine [facility] magnesium sulfate in water 4 gram/50 mL (8 %) IV Piggyback 4 g 11-28 09:00: 00 11-28 11:40 :00 No 4g 4 g, IV Piggyback, at 25 mL/hr Administer over 120 Minutes, ONCE, 1 dose, On Fri11/28/22 at 0300, Routine [facility] acetaminoph en (TYLENOL) tablet 650 mg 11-28 05:42: 31 Yes 650mg 650 mg, Oral, Q6HPRN, Starting on Fri11/27/22 at 2342, Until Discontinu ed, Routine, Pain (scale 1-3) [facility] acetaminoph en (TYLENOL) tablet 650 mg 11-28 05:42: 31 12-02 03:02 :05 No 650mg 650 mg, Oral, Q6HPRN, Starting on Fri11/27/22 at 2342, Until Fri12/01/22 at 2102, Routine, Pain (scale 1-3) [facility] iopamidol (ISOVUE 370-500 mL) injection 100 mL 11-28 02:15: 00 11-28 02:15 :00 No [id number] 100mL 100 mL, Intravenou s, ONCE, 1 dose, On Fri11/27/22 at 2015, Routine [facility] NaCl 0.9% (NS) bolus infusion 1,000 mL 11-28 01:15: 00 11-28 02:20 :00 No 1000mL at 999 mL/hr, 1,000 mL, IV Piggyback, ONCE, 1 dose, On Fri11/27/22 at 1915, STAT [facility] meclizine (TRAVEL-EAS E (MECLIZINE) ) tablet 25 mg 11-27 23:45: 00 11-28 00:02 :00 No 25mg 25 mg, Oral, ONCE, 1 dose, On Fri11/27/22 at 1745, RINKU [facility] Immunizations Ordered Immunization Name Filled Immunization Name Date Status Comments Source SARS-COV-2 COVID-19 PFIZER VACCINE 2021-04-07 00:00:00 Completed [facility] SARS-COV-2 COVID-19 PFIZER VACCINE 2021-04-07 00:00:00 Completed [facility] SARS-COV-2 COVID-19 PFIZER VACCINE 2021-04-07 00:00:00 Completed [facility] SARS-COV-2 COVID-19 PFIZER VACCINE 2021-04-07 00:00:00 Completed [facility] SARS-COV-2 COVID-19 PFIZER VACCINE 2021-04-07 00:00:00 Completed [facility] SARS-COV-2 COVID-19 PFIZER VACCINE 2021-04-07 00:00:00 Completed [facility] SARS-COV-2 COVID-19 PFIZER VACCINE 2021-04-07 00:00:00 Completed [facility] SARS-COV-2 COVID-19 PFIZER VACCINE 2021-04-07 00:00:00 Completed [facility] SARS-COV-2 COVID-19 PFIZER VACCINE 2021-04-07 00:00:00 Completed [facility] SARS-COV-2 COVID-19 PFIZER VACCINE 2021-04-07 00:00:00 Completed [facility] SARS-COV-2 COVID-19 PFIZER VACCINE 2021-04-07 00:00:00 Completed [facility] SARS-COV-2 COVID-19 PFIZER VACCINE 2021-04-07 00:00:00 Completed [facility] SARS-COV-2 COVID-19 PFIZER VACCINE 2021-04-07 00:00:00 Completed [facility] SARS-COV-2 COVID-19 PFIZER VACCINE 2021-03-10 00:00:00 Completed [facility] SARS-COV-2 COVID-19 PFIZER VACCINE 2021-03-10 00:00:00 Completed [facility] SARS-COV-2 COVID-19 PFIZER VACCINE 2021-03-10 00:00:00 Completed [facility] SARS-COV-2 COVID-19 PFIZER VACCINE 2021-03-10 00:00:00 Completed [facility] SARS-COV-2 COVID-19 PFIZER VACCINE 2021-03-10 00:00:00 Completed [facility] SARS-COV-2 COVID-19 PFIZER VACCINE 2021-03-10 00:00:00 Completed [facility] SARS-COV-2 COVID-19 PFIZER VACCINE 2021-03-10 00:00:00 Completed [facility] SARS-COV-2 COVID-19 PFIZER VACCINE 2021-03-10 00:00:00 Completed [facility] SARS-COV-2 COVID-19 PFIZER VACCINE 2021-03-10 00:00:00 Completed [facility] SARS-COV-2 COVID-19 PFIZER VACCINE 2021-03-10 00:00:00 Completed [facility] SARS-COV-2 COVID-19 PFIZER VACCINE 2021-03-10 00:00:00 Completed [facility] SARS-COV-2 COVID-19 PFIZER VACCINE 2021-03-10 00:00:00 Completed [facility] SARS-COV-2 COVID-19 PFIZER VACCINE 2021-03-10 00:00:00 Completed [facility] SARS-COV-2 COVID-19 PFIZER VACCINE Unknown Completed [facility] SARS-COV-2 COVID-19 PFIZER VACCINE Unknown Completed [facility] SARS-COV-2 COVID-19 PFIZER VACCINE Unknown Completed [facility] SARS-COV-2 COVID-19 PFIZER VACCINE Unknown Completed [facility] Vital Signs Vital Name Observation Time Observation Value Comments S ource Systolic blood pressure 2024-01-25 23:00:00 120 mm[Hg] [facility] Diastolic blood pressure 2024-01-25 23:00:00 85 mm[Hg] [facility] Heart rate 2024-01-25 23:00:00 97 /min [facility] Respiratory rate 2024-01-25 23:00:00 16 /min [facility] Oxygen saturation in Arterial blood by Pulse oximetry 2024-01-25 23:00:00 95 /min [facility] Body temperature 2024-01-25 20:48:00 36.94 Edwige [facility] Body height 2024-01-25 20:48:00 167.6 cm [facility] Body weight 2024-01-25 20:48:00 90.039 kg [facility] BMI 2024-01-25 20:48:00 32.04 kg/m2 [facility] Systolic blood pressure 2024-01-21 16:05:00 147 mm[Hg] [facility] Diastolic blood pressure 2024-01-21 16:05:00 99 mm[Hg] [facility] Heart rate 2024-01-21 16:05:00 102 /min [facility] Body temperature 2024-01-21 16:05:00 36.67 Edwige [facility] Respiratory rate 2024-01-21 16:05:00 20 /min [facility] Body height 2024-01-21 16:05:00 167.6 cm [facility] Body weight 2024-01-21 16:05:00 87.998 kg [facility] BMI 2024-01-21 16:05:00 31.31 kg/m2 [facility] Oxygen saturation in Arterial blood by Pulse oximetry 2024-01-21 16:05:00 99 /min [facility] Systolic blood pressure 2022-12-01 22:15:00 108 mm[Hg] [facility] Diastolic blood pressure 2022-12-01 22:15:00 72 mm[Hg] [facility] Heart rate 2022-12-01 22:15:00 89 /min [facility] Body temperature 2022-12-01 22:15:00 37.78 Edwige [facility] Respiratory rate 2022-12-01 22:15:00 18 /min [facility] Oxygen saturation in Arterial blood by Pulse oximetry 2022-12-01 22:15:00 98 /min [facility] Body height 2022-11-28 05:25:00 167.6 cm [facility] Body weight 2022-11-28 05:25:00 84.823 kg [facility] BMI 2022-11-28 05:25:00 30.18 kg/m2 [facility] Systolic blood pressure 2022-11-29 20:20:00 95 mm[Hg] [facility] Diastolic blood pressure 2022-11-29 20:20:00 52 mm[Hg] [facility] Heart rate 2022-11-29 20:20:00 90 /min [facility] Body temperature 2022-11-29 20:20:00 36.72 Edwige [facility] Respiratory rate 2022-11-29 20:20:00 15 /min [facility] Oxygen saturation in Arterial blood by Pulse oximetry 2022-11-29 20:20:00 100 /min [facility] Body height 2022-11-28 05:25:00 167.6 cm [facility] Body weight 2022-11-28 05:25:00 84.823 kg [facility] BMI 2022-11-28 05:25:00 30.18 kg/m2 [facility] Procedures Procedure Date / Time Performed Performing Clinician Source LIPASE 2024-01-25 21:35:00 Fidencio Shen [facility] MAGNESIUM 2024-01-25 21:35:00 Fidencio Shen Jojo [facility] COMP. METABOLIC PANEL ([id number]) 2024-01-25 21:35:00 Fidencio Shen [facility] CBC WITH DIFF 2024-01-25 21:35:00 Fidencio Shen [facility] URINALYSIS 2024-01-25 21:35:00 Fidencio Shen Jojo [facility] CONSENT/REFUSAL FOR DIAGNOSI S AND TREATMENT 2024-01-25 20:40:19 Doctor Unassigned, Cane Beds [facility] PROTHROMBIN TIME / INR 2024-01-21 17:57:00 Fidencio Shen Jojo [facility] ACTIVATED PARTIAL THRMPLAS HORTENCIA 6 17:57:00 Fidencio Shen Jojo [facility] URINALYSIS 2024-01-21 17:57:00 Fidencio Shen Jojo [facility] CT ABDOMEN PELVIS W CONTRAST 2024-01-21 17:19:01 Fidencio Shen [facility] LIPASE 2024-01-21 16:24:00 Fidencio Shen Jojo [facility] MAGNESIUM 2024-01-21 16:24:00 Fidencio Shen Jojo [facility] COMP. METABOLIC PANEL ([id number]) 2024-01-21 16:24:00 Fidencio Shen [facility] CBC WITH DIFF 2024-01-21 16:24:00 Fidencio Shen Jojo [facility] CONSENT/REFUSAL FOR DIAGNOSI S AND TREATMENT 2024-01-21 15:52:30 Doctor Unassigned, Cane Beds [facility] CONSENT FOR IRASEMA E TREATMENT FORM 2023-01-08 16:06:16 Doctor Unassigned, Cane Beds [facility] MAGNESIUM 2022-12-01 10:33:00 Mian Paulson [facility] BASIC METABOLIC PANEL (NA, K , CL, CO2, GLUCOSE, BUN, CREATININE, CA) 2022-12-01 10:33:00 [facility] CBC WITH DIFF 2022-12-01 10:33:00 [facility] MAGNESIUM 2022-12-01 10:33:00 [facility] BASIC METABOLIC PANEL (NA, K , CL, CO2, GLUCOSE, BUN, CREATININE, CA) 2022-12-01 10:33:00 [facility] CBC WITH DIFF 2022-12-01 10:33:00 Paulson [facility] CBC WITHOUT DIFF 2022-11-30 18:59:00 Paulson [facility] CBC WITHOUT DIFF 2022-11-30 18:59:00 [facility] MAGNESIUM 2022-11-30 11:06:00 [facility] BASIC METABOLIC PANEL (NA, K , CL, CO2, GLUCOSE, BUN, CREATININE, CA) 2022-11-30 11:06:00 [facility] CBC WITH DIFF 2022-11-30 11:06:00 [facility] MAGNESIUM 2022-11-30 11:06:00 [facility] BASIC METABOLIC PANEL (NA, K , CL, CO2, GLUCOSE, BUN, CREATININE, CA) 2022-11-30 11:06:00 [facility] CBC WITH DIFF 2022-11-30 11:06:00 [facility] CBC WITHOUT DIFF 2022-11-29 21:24:00 [facility] CBC WITHOUT DIFF 2022-11-29 21:24:00 [facility] ESOPHAGOGASTRODUODENOSCOPY 2022-11-29 19:31:00 Silverio Wagner [facility] EGD (ENDO) 2022-11-29 17:26:51 Dewayne Alvarado [facility] EGD (ENDO) 2022-11-29 17:26:51 Dewayne Alvarado [facility] CBC WITH DIFF 2022-11-29 11:48:00 [facility] DIFF CONSULT INTERPRETATION 2022-11-29 11:48:00 Mian Paulson [facility] ANEMIA CONSULT, BENIGN HEMAT OLOGY DMT 2022-11-29 11:48:00 [facility] 2022-11-29 11:48:00 [facility] INTERPRETATION 2022-11-29 11:48:00 Mian Paulson [facility] ANEMIA CONSULT, BENIGN HEMAT OLOGY DMT 2022-11-29 11:48:00 [facility] SMOOTH MUSCLE AB,IGG W/REFLEX 2022-11-29 11:47:00 [facility] CANCER ANTIGEN-GI (CA 19-9) 2022-11-29 11:47:00 [facility] [id number] ABS 2022-11-29 11:47:00 [facility] LACTATE DEHYDROGENASE 2022-11-29 11:47:00 [facility] CARCINOEMBRYONIC ANTIGEN 2022-11-29 11:47:00 [facility] FERRITIN SERUM 2022-11-29 11:47:00 [facility] CERULOPLASMIN 2022-11-29 11:47:00 [facility] HAPTOGLOBIN, SERUM 2022-11-29 11:47:00 [facility] ALPHA 1 ANTITRYPSIN 2022-11-29 11:47:00 [facility] IMMUNOGLOBULIN G 2022-11-29 11:47:00 Geo Lea [facility] ALPHA FETOPROTEIN 2022-11-29 11:47:00 [facility] DIFF CONSULT BY PATHOLOGIST 2022-11-29 11:47:00 [facility] SMOOTH MUSCLE AB,IGG W/REFLEX 2022-11-29 11:47:00 [facility] CANCER ANTIGEN-GI (CA 19-9) 2022-11-29 11:47:00 Paulson, Chandani [facility] OMYSL-[id number]-[id number] ABS 2022-11-29 11:47:00 [facility] LACTATE DEHYDROGENASE 2022-11-29 11:47:00 [facility] CARCINOEMBRYONIC ANTIGEN 2022-11-29 11:47:00 [facility] FERRITIN SERUM 2022-11-29 11:47:00 [facility] CERULOPLASMIN 2022-11-29 11:47:00 [facility] HAPTOGLOBIN, SERUM 2022-11-29 11:47:00 [facility] ALPHA 1 ANTITRYPSIN 2022-11-29 11:47:00 [facility] IMMUNOGLOBULIN G 2022-11-29 11:47:00 Geo Lea [facility] ALPHA FETOPROTEIN 2022-11-29 11:47:00 [facility] DIFF CONSULT BY PATHOLOGIST 2022-11-29 11:47:00 [facility] CBC WITHOUT DIFF 2022-11-29 02:29:00 [facility] HEPATITIS C VIRUS (HCV) BY QUANTITATIVE NAAT 2022-11-29 02:29:00 Catherine [facility] CBC WITHOUT DIFF 2022-11-29 02:29:00 [facility]ram [facility] HEPATITIS C VIRUS (HCV) BY QUANTITATIVE NAAT 2022-11-29 02:29:00 Michael Alexander [facility] CT THORAX W CONTRAST 2022-11-29 01:10:31 [facility] CT THORAX W CONTRAST 2022-11-29 01:10:31 [facility] TRANSFUSE PACKED RBC 2022-11-28 21:08:00 [facility] TRANSFUSE PACKED RBC 2022-11-28 21:08:00 [facility] PREPARE PACKED RBC 2022-11-28 21:01:02 [facility] PREPARE PACKED RBC 2022-11-28 21:01:02 [facility] TRANSFUSE PACKED RBC 2022-11-28 18:42:00 [facility] TRANSFUSE PACKED RBC 2022-11-28 18:42:00 [facility] PREPARE PACKED RBC 2022-11-28 17:22:45 [facility] PREPARE PACKED RBC 2022-11-28 17:22:45 [facility] HB ABO GROUPING 2022-11-28 16:34:00 [facility] HB ABO GROUPING 2022-11-28 16:34:00 [facility] CBC WITHOUT DIFF 2022-11-28 13:30:00 Catherine [facility] CBC WITHOUT DIFF 2022-11-28 13:30:00 Catherine [facility] CANCER ANTIGEN-GI (CA 19-9) 2022-11-28 07:09:00 [facility] BLOOD CULTURE SCREEN 2022-11-28 07:09:00 Catherine [facility] PHOSPHORUS 2022-11-28 07:09:00 Catherine [facility] MAGNESIUM 2022-11-28 07:09:00 Catherine [facility] CARCINOEMBRYONIC ANTIGEN 2022-11-28 07:09:00 [facility] VITAMIN B12, LEVEL 2022-11-28 07:09:00 Catherine [facility] FOLATE 2022-11-28 07:09:00 Catherine [facility] HAPTOGLOBIN, SERUM 2022-11-28 07:09:00 [facility] BASIC METABOLIC PANEL (NA, K , CL, CO2, GLUCOSE, BUN, CREATININE, CA) 2022-11-28 07:09:00 Catherine [facility] ALPHA FETOPROTEIN 2022-11-28 07:09:00 [facility] CBC WITH DIFF 2022-11-28 07:09:00 Catherine [facility] ANTI-NUCLEAR ANTIBODY SCREEN 2022-11-28 07:09:00 Higinio Paulson [facility] HEPATITIS B SURFACE ANTIBODY 2022-11-28 07:09:00 Catherine [facility] HEPATITIS B SURFACE ANTIGEN 2022-11-28 07:09:00 Catherine [facility] HCV ANTIBODY 2022-11-28 07:09:00 Catherine [facility] RETICULOCYTES AUTOMATED 2022-11-28 07:09:00 Mian Paulson [facility] ANTI-NUCLEAR ANTIBODY-PATHOL OGIST INTERPRETATION 2022-11-28 07:09:00 Higinio Paulson [facility] CANCER ANTIGEN-GI (CA 19-9) 2022-11-28 07:09:00 [facility]LO[facility]EN 2022-11-28 07:09:00 Catherine [facility] PHOSPHORUS 2022-11-28 07:09:00 Catherine [facility] MAGNESIUM 2022-11-28 07:09:00 Catherine [facility] CARCINOEMBRYONIC ANTIGEN 2022-11-28 07:09:00 [facility] VITAMIN B12, LEVEL 2022-11-28 07:09:00 Catherine [facility] FOLATE 2022-11-28 07:09:00 Catherine [facility] HAPTOGLOBIN, SERUM 2022-11-28 07:09:00 [facility] BASIC METABOLIC PANEL (NA, K , CL, CO2, GLUCOSE, BUN, CREATININE, CA) 2022-11-28 07:09:00 Catherine [facility] ALPHA FETOPROTEIN 2022-11-28 07:09:00 Mian Paulson [facility] CBC WITH DIFF 2022-11-28 07:09:00 Catherine [facility] ANTI-NUCLEAR ANTIBODY SCREEN 2022-11-28 07:09:00 Higinio Paulson [facility] HEPATITIS B SURFACE ANTIBODY 2022-11-28 07:09:00 Catherine [facility] HEPATITIS B SURFACE ANTIGEN 2022-11-28 07:09:00 Michael Alexander [facility] HCV ANTIBODY 2022-11-28 07:09:00 Catherine [facility] RETICULOCYTES AUTOMATED 2022-11-28 07:09:00 Mian Paulson [facility] ANTI-NUCLEAR ANTIBODY-PATHOL OGIST INTERPRETATION 2022-11-28 07:09:00 Higinio Paulson [facility] LACTIC ACID WHOLE BLOOD 2022-11-28 02:51:00 [facility] LACTIC ACID WHOLE BLOOD 2022-11-28 02:51:00 [facility] TRANSFUSE PACKED RBC 2022-11-28 02:24:00 [facility] TRANSFUSE PACKED RBC 2022-11-28 02:24:00 [facility] URINALYSIS 2022-11-28 01:38:00 [facility] URINALYSIS 2022-11-28 01:38:00 [facility] ABORH CONFIRMATION (LAB ONLY) 2022-11-28 01:23:00 [facility] ABORH CONFIRMATION (LAB ONLY) 2022-11-28 01:23:[address] [facility] [address] ANGIOGRAM ABDOMEN/PELVIS 2022-11-28 01:21:[address] [facility] [address] ANGIOGRAM ABDOMEN/PELVIS 2022-11-28 01:21:[address] [facility] [address] HEAD WO CONTRAST 2022-11-28 01:11:[address] [facility] [address] HEAD WO CONTRAST 2022-11-28 01:11:00 [facility] HB ABO GROUPING 2022-11-28 00:46:00 [facility] HB ABO GROUPING 2022-11-28 00:46:00 [facility] LIPASE 2022-11-27 23:58:00 [facility] FERRITIN SERUM 2022-11-27 23:58:00 Safder, [facility] AMMONIA, PLASMA 2022-11-27 23:58:00 [facility] COMP. METABOLIC PANEL ([id number]) 2022-11-27 23:58:00 [facility] IRON PANEL 2022-11-27 23:58:00 Catherine [facility] CBC WITH DIFF 2022-11-27 23:58:00 [facility] PROTHROMBIN TIME / INR 2022-11-27 23:58:00 [facility] LACTIC ACID WHOLE BLOOD 2022-11-27 23:58:00 [facility] LIPASE 2022-11-27 23:58:00 [facility] FERRITIN SERUM 2022-11-27 23:58:00 Catherine [facility] AMMONIA, PLASMA 2022-11-27 23:58:00 [facility] COMP. METABOLIC PANEL ([id number]) 2022-11-27 23:58:00 [facility] IRON PANEL 2022-11-27 23:58:00 Catherine [facility] CBC WITH DIFF 2022-11-27 23:58:00 [facility] PROTHROMBIN TIME / INR 2022-11-27 23:58:00 [facility] LACTIC ACID WHOLE BLOOD 2022-11-27 23:58:00 [facility] NOTICE OF PRIVACY PRACTICES 2022-11-27 23:27:18 Doctor Unassigned, Cane Beds [facility] NOTICE OF PRIVACY PRACTICES 2022-11-27 23:27:18 Doctor Unassigned, Cane Beds [facility] HOSPITAL ADMISSION 2022-11-27 06:01:00 Doctor Unassigned, Cane Beds [facility] HOSPITAL ADMISSION 2022-11-27 06:01:00 Doctor Unassigned, Cane Beds [facility] Encounters Start Date/Time End Date/Time Encounter Type Admission Type Attending [facility] Care Facility Care Department Encounter ID Source 2024-01-25 15:52:00 2024-01-25 18:42:00 Emergency X Fidencio [facility]EN [facility] ERT [id number] [facility] 2024-01-25 15:52:00 2024-01-25 18:42:00 Emergency Fidencio Shen [facility] [id number] 350.1.13.10 4.2.7.2.686 [id number] [facility] 2024-01-21 10:06:00 2024-01-21 13:58:00 Emergency X Fidencio SHEN [facility] ERT [id number] [facility] 2024-01-21 10:06:00 2024-01-21 13:58:00 Emergency Fidencio Shen [facility] [id number] 350.1.13.10 4.2.7.2.686 [id number] [facility] 2023-06-24 00:00:00 2023-06-24 00:00:00 Patient Outreach Brandy Hayden [facility]EN [facility] [id number] 350.1.13.10 4.2.7.2.686 [id number] [facility] 2023-05-30 00:00:00 2023-05-30 00:00:00 Patient Outreach Nova Lopez [id number] 350.1.13.10 4.2.7.2.686 [id number] [facility] 2023-04-16 00:00:00 2023-04-16 00:00:00 Patient Outreach Nova Lopez [id number] 350.1.13.10 4.2.7.2.686 [id number] 403 [id number] [facility] 2023-01-09 00:00:00 2023-01-09 00:00:00 Patient Outreach Nova Lopez [id number] 350.1.13.10 4.2.7.2.686 [id number] [facility] 2023-01-09 00:00:00 2023-01-09 00:00:00 Patient Outreach Brandy Hayden [id number] 350.1.13.10 4.2.7.2.686 [id number] [facility] 2023-01-08 00:00:00 2023-01-08 00:00:00 Orders Only Doctor Unassigned, Cane Beds [facility] [id number] 350.1.13.10 4.2.7.2.686 [id number] [facility] 2023-01-08 00:00:00 2023-01-08 00:00:00 Patient Outreach Angel Lopezad NIXONJose SINGHIsaac GERBER [id number] 350.1.13.10 4.2.7.2.686 [id number] [facility] 2022-12-27 00:00:00 2022-12-27 00:00:00 Patient Outreach Brandy Hayden MICHELDALLIN [id number] 350.1.13.10 4.2.7.2.686 [id number] [facility] 2022-12-18 00:00:00 2022-12-18 00:00:00 Patient Outreach Brandy Hayden MICHELDALLIN [id number] 350.1.13.10 4.2.7.2.686 [id number] [facility] 2022-12-04 00:00:00 2022-12-04 00:00:00 Transition of Care Laura Riley [id number] 350.1.13.10 4.2.7.2.686 [id number] [facility] 2022-12-04 00:00:00 2022-12-04 00:00:00 Transition of Care Laura Riley [id number] 350.1.13.10 4.2.7.2.686 [id number] [facility] 2022-11-27 17:31:00 2022-12-01 18:15:00 Hospital Encounter Jarvis Martinez, [facility]ne Winn, [facility] 1.2.840.114 350.1.13.10 4.2.7.2.686 [id number] [facility] 2022-11-27 17:31:00 2022-12-01 18:15:00 Inpatient X DEWAYNE ALVARADO [facility] [id number] [facility] 2022-11-29 13:30:00 2022-11-29 14:24:00 Surgery Silverio Wagner [facility] BLDG [id number] [facility] Results Test Description Test Time Test Comments Results Result Co mments Source [facility] W [id number] 17:33:16CT Abdomen and Pelvis with intravenous contrast. CLINICAL HISTORY: Abdominal distention. DOSE: Up-to-date CT equipment and radiation dose reduction techniques wereemployed. CTDIvol: ?11.23 mGy. DLP: 649.58 mGy-cm. TECHNIQUE : Contiguous axial imaging from the level of the lung basesthrough the pubic symphysis were performed after the uncomplicatedadministration of 77 mL of nonionic contrast material. ?Coronal andsagittal reconstructions were obtained. Auto mA and/or iterativereconstruction wereused to reduce radiation dose. FINDINGS: ? Lower lungs: Poorly visualized 5 mm noncalcified nodule in left lower lung(2:1), calcified granuloma in the left lower lung, linear areas ofatelectasis in both lower lungs noted. No pleural effusion or pericardialeffusion. Liver, Gallbladder and Spleen: The liver exhibits chronic cirrhoticmorphology with nodular serosal surface, portal hypertension causin gsplenomegaly, dilated portal venous circulation including development ofretrogastric and paraesophageal varicose veins and moderate volume ascites.Left lobe of the liver is hypertrophied and showed multiple poorlyenhancing varying size hypodense nodules measuring up to 3.6 cm.No definite gallstones visualized. Biliary ducts and the pancreatic ductappear normal size. Peritoneum: ?No free air. Moderate volume ascites noted. Enlarged lymphnodes are seen surrounding the portal vein, measuring up to 3.4 cm.Additional lymph nodes also noted surrounding the head of the pancreas andsplenic vein. Pancreas and Adrenals: ?Unremarkable pancreas and adrenal glands. Kidneys and Ureters: 3 mm stone notedin the lower pole of right kidney. Nohydroureter or hydronephrosis. 17 mm hypodense lesion in the medial cortexof the upper pole of the left kidney is consistent with a small cyst. 5 mmhypodense lesion in the anterior cortex of the interpolar right kidney, 5mm lesion in the dorsal cortex near the lower pole and another poorlyvisualized irregular shaped 6 mm hypodense lesion in the anterolateralcortex of the interpolar left kidney noted, possibly small cysts. Anterior cortex of the interpolar right kidney also showed 6 mm hypodenselesion and another 6 mm hypodense lesion in the medial cortex which couldbe small renal cysts. Vessels: No significant atherosclerosis. Retroperitoneum: No abnormal fluid. Enlarged lymph nodes are seen in theretroperitoneum surrounding aorta and inferior vena cava with the largestlymph node in short axis dimension measuring 2.2 cm. Enlarged lymph nodesalso seenin the right retrocrural space. Bowel: ?Mild diverticulosis of large bowel noted without any acute changes.Normal appendix is visualized. Bladder and Reproductive Organs: ?Grossly unremarkable under distended andunopacified urinary bladder. Central zone prostate gland calcificationsnoted. Bones: ?No acute findings. Soft tissues: Possible small developing directly- type fat-containinginguinal hernia, larger on the left side. CONCLUSION: 1. Abnormal liver morphology consistent with chronic liverdisease/cirrhosis with portal hypertension causing splenomegaly, moderatevolume ascites, gastric/esopha geal varices.2. Multiple ill-defined lesions in the left lobe of the liver, worrisomefor multifocalprimary malignancy.3. Enlarged lymph nodes are seen in the periportal region as well as in theretroperitoneum, worrisome for metastatic disease.4. 3 mm nonobstructing stone in the lower right kidney.Multiple hypodenselesions in both kidneys, likely incidental small renal cysts.[facility]. Metabolic Panel (24677)2024-01-21 17:24:09* Test Item Value Reference Range Interpretation Comme nts NA (test code = 5955360623) 138 mmol/L 135-145 K (test code = 1571601315) 3.8 mmol/L 3.5-5.0 CL (test code = 9096766953) 109 mmol/L 98-108 H CO2 TOTAL (test code = 1412005958) 25 mmol/L 23-31 AGAP (test code = 3785493165) 4 2-16 BUN (test code = 7717731431) 15 mg/dL 7-23 GLUCOSE (test code = 8699685320) 98 mg/dL 70-110 CREATININE (test code = 2160-0) 0.56 mg/dL 0.60-1.25 L TOTAL BILI (test code = 4545077639) 1.7 mg/dL 0.1-1.1 H CALCIUM (test code = 4162972120) 8.3 mg/dL 8.6-10.6 L T PROTEIN (test code = 2153234813) 8.4 g/dL 6.3-8.2 H ALBUMIN (test code = 7285102447) 3.0 g/dL 3.5-5.0 L ALK PHOS (test code = 1597622433) 172 U/L 34-122 H ALTv (test code = 1742-6) 47 U/L 5-50 AST(SGOT) (test code = 5888825070) 83 U/L 13-40 H eGFR (test code = 97477-0) 125.4 mL/min/1.73m2 CKD-EPI eGFR (2020). Assuming creatinine has been stable day-to-day for at least three months, the eGFR indicates Category G1 (>= 90 mL/min/1.73 m2) Lab Interpretation (test code = 71257-6) [facility]normal [facility] 17:24:09* Test Item Value Reference Range Interpretation Comme nts MAGNESIUM (test code = 3313599269) 1.7 mg/dL 1.7-2.4 Lab Interpretation (test cod e = 69709-9) Normal [facility]24-[facility] 17:23:49* Test Item Value Reference Range Interpretation Comme nts LIPASE (test code = 3749689910) 170 U/L 0-220 Lab Interpretation (test cod e = 57201-2) [facility] Culture - Peripheral [id number] 09:01:09* Test Item Value Reference Range Interpretation Comme nts Blood Culture-Aerobic (test code = 83626-6) No organisms isolated No growth Previous preliminary verified result was Culture In Progress on 11/28/2022 at 0601 CSTPrevious preliminary verified result was No growth at 24 hours on 11/29/2022 at 0301 CSTPrevious preliminary verified result was No growth at 48 hours on 11/30/2022 at 0301 CSTPrevious preliminary verified result was No growth at 72 hours on 12/01/2022 at 0301 LOG CUTTER Blood Culture-Anaerobic (test code = 10645-4) No organisms isolated No growth Previous preliminary verified result was Culture In Progress on 11/28/2022 at 0601 CSTPrevious preliminary verified result was No growth at 24 hours on 11/29/2022 at 0301 CSTPrevious preliminary verified result was No growth at 48 hours on 11/30/2022 at 0301 CSTPrevious preliminary verified result was No growth at 72 hours on 12/01/2022 at 0301 LOG CUTTER Lab Interpretation (test code = 64775-5) [facility] Culture - Peripheral Vein # 09:01:09* Test Item Value Reference Range Interpretation Comme nts Blood Culture-Aerobic (test code = 05845-3) No organisms isolated No growth Previous preliminary verified result was Culture In Progress on 11/28/2022 at 0601 CSTPrevious preliminary verified result was No growth at 24 hours on 11/29/2022 at 0301 CSTPrevious preliminary verified result was No growth at 48 hours on 11/30/2022 at 0301 CSTPrevious preliminary verified result was No growth at 72 hours on 12/01/2022 at 0301 LOG CUTTER Blood Culture-Anaerobic (test code = 24141-1) No organisms isolated No growth Previous preliminary verified result was Culture In Progress on 11/28/2022 at 0601 CSTPrevious preliminary verified result was No growth at 24 hours on 11/29/2022 at 0301 CSTPrevious preliminary verified result was No growth at 48 hours on 11/30/2022 at 0301 CSTPrevious preliminary verified result was No growth at 72 hours on 12/01/2022 at 0301 LOG CUTTER Lab Interpretation (test code = 22548-8) Normal [facility] WITH [id number] 13:25:35* Test Item Value Reference Range Interpretation Comme nts WBC (test code = 6690-2) See_Comment L [Automated messa ge] The system which generated this result transmitted reference range: 4.20 - 10.70 10*3/?L. The reference range was not used to interpret this result as normal/abnormal. RBC (test code = 789-8) See_Comment L [Automated messa ge] The system which generated this result transmitted reference range: 4.26 - 5.52 10*6/?L. The reference range was not used to interpret this result as normal/abnormal. HGB (test code = 718-7) 7.2 g/dL 12.2-16.4 L HCT (test code = 4544-3) 22.1 % 38.4-49.3 L MCV (test code = 787-2) 74.7 fL 81.7-95.6 L MCH (test code = 785-6) 24.3 pg 26.1-32.7 L MCHC (test code = 786-4) 32.6 g/dL 31.2-35.0 RDW-SD (test code = 47682-9) 66.8 fL 38.5-51.6 H RDW-CV (test code = 788-0) 24.8 % 12.1-15.4 H PLT (test code = 777-3) See_Comment L [Automated messa ge] The system which generated this result transmitted reference range: 150 - 328 10*3/?L. The reference range was not used to interpret this result as normal/abnormal. MPV (test code = 64710-2) Not Measured IPF % (test code = 7597174043) 3.6 % 1.2-10.7 Platelet count measured by fluorescence method. NRBC/100 WBC (test code = 5171551469) See_Comment [Automated me ssage] The system which generated this result transmitted reference range: 0.0 - 10.0 /100 WBCs. The reference range was not used to interpret this result as normal/abnormal. NRBC x10^3 (test code = 5747899079) See_Comment [Automated messa ge] The system which generated this result transmitted reference range: 10*3/?L. The reference range was not used to interpret this result as normal/abnormal. GRAN MAT (NEUT) % (test code = 770-8) 59.0 % IMM GRAN % (test code = 0273176215) 0.70 % LYMPH % (test code = 736-9) 27.7 % MONO % (test code = 5905-5) 9.2 % EOS % (test code = 713-8) 3.0 % BASO % (test code = 706-2) 0.4 % GRAN MAT x10^3(ANC) (test code = 4353054183) 1.60 10*3/uL 1.99-6.95 L IMM GRAN x10^3 (test code = 9706618871) 0.00-0.06 LYMPH x10^3 (test code = 731-0) 0.75 10*3/uL 1.09-3.23 L MONO x10^3 (test code = 742-7) 0.25 10*3/uL 0.36-1.02 L EOS x10^3 (test code = 711-2) 0.08 10*3/uL 0.06-0.53 BASO x10^3 (test code = 704-7) 0.01-0.09 Lab Interpretation (test code = 66406-3) Abnormal [facility] WITH [id number] 13:25:35* Test Item Value Reference Range Interpretation Comme nts WBC (test code = 6690-2) See_Comment L [Automated messa ge] The system which generated this result transmitted reference range: 4.20 - 10.70 10*3/?L. The reference range was not used to interpret this result as normal/abnormal. RBC (test code = 789-8) See_Comment L [Automated messa ge] The system which generated this result transmitted reference range: 4.26 - 5.52 10*6/?L. The reference range was not used to interpret this result as normal/abnormal. HGB (test code = 718-7) 7.2 g/dL 12.2-16.4 L HCT (test code = 4544-3) 22.1 % 38.4-49.3 L MCV (test code = 787-2) 74.7 fL 81.7-95.6 L MCH (test code = 785-6) 24.3 pg 26.1-32.7 L MCHC (test code = 786-4) 32.6 g/dL 31.2-35.0 RDW-SD (test code = 26856-8) 66.8 fL 38.5-51.6 H RDW-CV (test code = 788-0) 24.8 % 12.1-15.4 H PLT (test code = 777-3) See_Comment L [Automated [employer]] The system which generated this result transmitted reference range: 150 - 328 10*3/?L. The reference range was not used to interpret this result as normal/abnormal. MPV (test code = 03769-9) Not Measured IPF % (test code = 0583960423) 3.6 % 1.2-10.7 Platelet count measured by fluorescence method. NRBC/100 WBC (test code = 2591529612) See_Comment [Automated [employer] ssage] The system which generated this result transmitted reference range: 0.0 - 10.0 /100 WBCs. The reference range was not used to interpret this result as normal/abnormal. NRBC x10^3 (test code = 1714416762) See_Comment [Automated [employer]] The system which generated this result transmitted reference range: 10*3/?L. The reference range was not used to interpret this result as normal/abnormal. GRAN MAT (NEUT) % (test code = 770-8) 59.0 % IMM GRAN % (test code = 1233127866) 0.70 % LYMPH % (test code = 736-9) 27.7 % MONO % (test code = 5905-5) 9.2 % EOS % (test code = 713-8) 3.0 % BASO % (test code = 706-2) 0.4 % GRAN MAT x10^3(ANC) (test code = 5919509000) 1.60 10*3/uL 1.99-6.95 L IMM GRAN x10^3 (test code = 5374740119) 0.00-0.06 LYMPH x10^3 (test code = 731-0) 0.75 10*3/uL 1.09-3.23 L MONO x10^3 (test code = 742-7) 0.25 10*3/uL 0.36-1.02 L EOS x10^3 (test code = 711-2) 0.08 10*3/uL 0.06-0.53 BASO x10^3 (test code = 704-7) 0.01-0.09 Lab Interpretation (test code = 97523-0) Abnormal [facility] METABOLIC PANEL (NA, K, CL, CO2, GLUCOSE, BUN, CREATININE, CA)2022-11-30 12:23:46* Test Item Value Reference Range Interpretation Comme nts NA (test code = 7049787417) 135 mmol/L 135-145 K (test code = 4987424085) 4.2 mmol/L 3.5-5.0 CL (test code = 3001899162) 111 mmol/L 98-108 H CO2 TOTAL (test code = 8810211508) 21 mmol/L 23-31 L AGAP (test code = 7743339821) 2-16 BUN (test code = 0948107089) 10 mg/dL 7-23 GLUCOSE (test code = 3848558224) 93 mg/dL 70-110 CREATININE (test code = 0577585095) 0.77 mg/dL 0.60-1.25 CALCIUM (test code = 3097466824) 7.1 mg/dL 8.6-10.6 L eGFR (test code = 0198911568) mL/min/1.73m2 PANFILO (test code = PANFILO) Association of Glomerular Filtration Rate (GFR) and Staging of Kidney Disease* + --+ --+ ------+| GFR (mL/min/1.73 m2) ?| With Kidney Damage ?| ?Without Kidney Damage+ --------+ --------+ +| ?>90 ?| ?Stage one ?| ? Normal ?+ ---+ ---+ -------+| ?60-89 ?| ?Stage two ?| ? Decreased GFR ? + --+ --+ ------+| ?30-59 ?| ?Stage three ?| ? Stage three ? + --+ --+ ------+| ?15-29 ?| ?Stage four ? | ? Stage four ?+ ---+ ---+ -------+| ?<15 (or dialysis) ? ?| ?Stage five ? | ? Stage five ?+ ---+ ---+ -------+ *Each stage assumes the associated GFR level has been in effect for at least three months. ?Stages 1 to 5, with or without kidney disease, indicate chronic kidney disease. Notes: Determination of stages one and two (with eGFR >59mL/min/1.73 m2) requires estimation of kidney damage for at least three months as defined by structural or functional abnormalities of the kidney, manifested by either:Pathological abnormalities or Markers of kidney damage (including abnormalities in the composition of the blood or urine or abnormalities in imaging tests). Lab Interpretation (test code = 42264-3) [facility]normal [facility]2023-[facility]-14 12:23:46* Test Item Value Reference Range Interpretation Comme nts MAGNESIUM (test code = 8395364264) 1.7 mg/dL 1.7-2.4 Lab Interpretation (test cod e = 45640-7) Normal [facility]OL[facility] PAN[facility] (NA, K, CL, CO2, GLUCOSE, BUN, CREATININE, CA)2022-11-30 12:23:46* Test Item Value Reference Range Interpretation Comme nts NA (test code = 7186097309) 135 mmol/L 135-145 K (test code = 0766290005) 4.2 mmol/L 3.5-5.0 CL (test code = 0506204692) 111 mmol/L 98-108 H CO2 TOTAL (test code = 5964538839) 21 mmol/L 23-31 L AGAP (test code = 9676906361) 2-16 BUN (test code = 0117933735) 10 mg/dL 7-23 GLUCOSE (test code = 1005841525) 93 mg/dL 70-110 CREATININE (test code = 8230662797) 0.77 mg/dL 0.60-1.25 CALCIUM (test code = 7488356658) 7.1 mg/dL 8.6-10.6 L eGFR (test code = 0979002976) mL/min/1.73m2 PANFILO (test code = PANFILO) Association of Glomerular Filtration Rate (GFR) and Staging of Kidney Disease* + --+ --+ ------+| GFR (mL/min/1.73 m2) ?| With Kidney Damage ?| ?Without Kidney Damage+ --------+ --------+ +| ?>90 ?| ?Stage one ?| ? Normal ?+ ---+ ---+ -------+| ?60-89 ?| ?Stage two ?| ? Decreased GFR ? + --+ --+ ------+| ?30-59 ?| ?Stage three ?| ? Stage three ? + --+ --+ ------+| ?15-29 ?| ?Stage four ? | ? Stage four ?+ ---+ ---+ -------+| ?<15 (or dialysis) ? ?| ?Stage five ? | ? Stage five ?+ ---+ ---+ -------+ *Each stage assumes the associated GFR level has been in effect for at least three months. ?Stages 1 to 5, with or without kidney disease, indicate chronic kidney disease. Notes: Determination of stages one and two (with eGFR >59mL/min/1.73 m2) requires estimation of kidney damage for at least three months as defined by structural or functional abnormalities of the kidney, manifested by either:Pathological abnormalities or Markers of kidney damage (including abnormalities in the composition of the blood or urine or abnormalities in imaging tests). Lab Interpretation (test code = 10862-6) [facility]normal [facility]2023-01-14 12:23:46* Test Item Value Reference Range Interpretation Comme nts MAGNESIUM (test code = 3588795930) 1.7 mg/dL 1.7-2.4 Lab Interpretation (test cod e = 39918-1) Normal [facility]ano[facility]I-NUCLEAR ANTIBODY-PATHOLOGIST [id number] 23:23:00ANA - Pathologist InterpretationANA HEp-2 IIFA Pathologist Interpretation Report Patient Name: Tyler Whatley ? ?Antinuclear Antibody (FEROZ) Test (Anti-Cell Antibodies Test) Indirect Immunof luorescence Assay on HEp-2 Cells Screening titer: 1:80 (adults, > 18 years old), 1:40 (pediatrics, <= 18 years old)?Result: The antinuclear antibody (FEROZ) screen is negative on interpretation. Remarks:This patient has a negative antinuclear antibody (FEROZ) screening test. This suggests that the patient likely does not have a systemic autoimmune rheumatic disease that is strongly associated with a positive FEROZ, such as systemic lupus erythematosus (FEROZ positive in ~95-100%), systemic sclerosis (FEROZ positive in ~60-80%), or the following disorders in which FEROZ positivity is part of the diagnostic criteria: drug-induced lupus, autoimmune hepatitis, or mixed connective tissue disease. However, the FEROZ may be negative in rare cases of systemic lupus erythematosus and systemic sclerosis. The FEROZ may also be negative in ~20% of patients presenting with autoimmune hepatitis. Additionally, FEROZ positivity is less sensitive in the diagnosis of Sjogren's syndrome (~40-70%) and dermatomyositis/polymyositis (~30- 80%). FEROZ is not useful for the diagnosis of rheumatoid arthritis, multiple sclerosis, idiopathic thrombocytopenic purpura, thyroid disease, discoid lupus, or fibromyalgia. (https://pubmed.ncbi.nlm.nih.gov/32615455/, https://pubmed.ncbi.nlm.nih.gov/09657933/) ? ? Therefore, a diagnosis cannot be based exclusively on FEROZ detection and/or pattern and thus should be made via the integration of patient history, physical exam findings, and other diagnostic tests as clinically indicated. Mirna Schaefer MD ?11/29/2022 ?5:22 PM11/29/2022 5:23 PM [facility]OR[facility] SERVICESB[facility]anoANTI- NUCLEAR ANTIBODY-PATHOLOGIST [id number] 23:23:00ANA - Pathologist InterpretationANA HEp-2 IIFA Pathologist Interpretation Report Patient Name: Tyler Whatley ? ?Antinuclear Antibody (FEROZ) Test (Anti-Cell Antibodies Test) Indirect Immunofluorescence Assay on HEp-2 Cells Screening titer: 1:80 (adults, > 18 years old), 1:40 (pediatrics, <= 18 years old)?Result: The antinuclear antibody (FEROZ) screen is negative on interpretation. R emarks:This patient has a negative antinuclear antibody (FEROZ) screening test. This suggests that the patient likely does not have a systemic autoimmune rheumatic disease that is strongly associated with a positive FEROZ, such as systemic lupus erythematosus (FEROZ positive in ~95-100%), systemic sclerosis (FEROZ positive in ~60-80%), or the following disorders in which FEROZ positivity is part of the diagnostic criteria: drug-induced lupus, autoimmune hepatitis, or mixed connective tissue disease. However, the FEROZ may be negative in rare cases of systemic lupus erythematosus and systemic sclerosis. The FEROZ may also be negative in ~20% of patients presenting with autoimmune hepatitis. Additionally, FEROZ positivity is less sensitive in the diagnosis of Sjogren's syndrome (~40- 70%) and dermatomyositis/polymyositis (~30-80%). FEROZ is not useful for the diagnosis of rheumatoid arthritis, multiple sclerosis, idiopathic thrombocytopenic purpura, thyroid disease, discoid lupus, or fibromyalgia. (https://pubmed.ncbi.nlm.nih.gov/29582526/, https://pubmed.ncbi.nlm.nih.gov/40872822/) ? ? Therefore, a diagnosis cannot be based exclusively on FEROZ detection and/or pattern and thus should be made via the integration of patient history, physical exam findings, and other diagnostic tests as clinically indicated. Mirna Schaefer MD ?11/29/2022 ?5:22 PM11/29/2022 5:23 PM [facility] LABORATORY SERVICESB[facility]anoANTI- NUCLEAR ANTIBODY [id number] 21:06:27* Test Item Value Reference Range Interpretation Comme nts FEROZ (test code = 6524887583) Negative Negative PANFILO (test code = PANFILO) Negative: ?No Anti-Nuclear Antibodies detected by IFA. Positive: ?FEROZ IFA screen performed with a 1:80 dilution in adults and a 1:40 dilution in pediatrics. ?A titer is performed and reported separately when the FEROZ is "Positive" or when "Cytoplasmic staining is observed." Lab Interpretation (test code = 96208-5) Normal [facility]-NUCLEAR ANTIBODY [id number] 21:06:27* Test Item Value Reference Range Interpretation Comme nts FEROZ (test code = 5227249254) Negative Negative PANFILO (test code = PANFILO) Negative: ?No Anti-Nuclear Antibodies detected by IFA. Positive: ?FEROZ IFA screen performed with a 1:80 dilution in adults and a 1:40 dilution in pediatrics. ?A titer is performed and reported separately when the FEROZ is "Positive" or when "Cytoplasmic staining is observed." Lab Interpretation (test code = 88406-4) [facility], [id number] 00:59:34 SHUBXRADV11/12/2023 6:59 PM CSTUTMB LABORATORY SERVICESUnChildren's Hospital of San AntonioCARCINOEMBRYONIC [id number] 00:59:35IOF9911/28/2022 6:59 PM CSTUTMB LABORATORY SERVICESCEA Ranges: Non-Smokers ?0-5.0 ng/mLSmokers ? ? ?0- 10.0 ng/mLUnChildren's Hospital of San AntonioCANCER ANTIGEN-GI (CA 19-9) 2022-11-29 00:59:34CA 6:59 PM CSTUTMB LABORATORY SERVICESBiotin has been reported to cause a negative bias, interpret results relative to patient's use of biotin.[facility]anoALPHA FETOPROTEIN 2022-11-29 00:59:06QSC6011/28/2022 6:59 PM CSTUTMB LABORATORY SERVICESBiotin has been reported to cause a negative bias,interpret results relative to patient's use of biotin.[facility] HospitalPTOGLOBIN, [id number] 00:59:49CDDTKGZIK03/12/2023 6:59 PM CSTUTMB LABORATORY SERVICESUnChildren's Hospital of San AntonioCARCINOEMBRYONIC [id number] 00:59:47ISD7911/28/2022 6:59 PM CSTUTMB LABORATORY SERVICESCEA Ranges: Non-Smokers ?0-5.0 ng/mLSmokers ? ? ?0-10.0 ng/mLUnChildren's Hospital of San AntonioCANCER ANTIGEN-GI (CA 19-9) 2022-11-29 00:59:34CA 6:59 PM CSTUTMB LABORATORY SERVICESBiotin has been reported to cause a negative bias, interpret results relative to patient's use of biotin.[facility]anoALPHA FETOPROTEIN 2022-11-29 00:59:14SET3911/28/2022 6:59 PM CSTUTMB LABORATORY SERVICESBiotin has been reported to cause a negative bias,interpret results relative to patient's use of biotin.[facility] B SURFACE ANTIBODY 2022-11-29 00:59:24XJoIL2711/28/2022 6:59 PM CSTUTMB LABORATORY SERVICESHBsAb Semi-Hhybohpkguhf39/12/2023 6:59 PM CSTUTMB LABORATORY SERVICESInterpretation: ?Hepatitis B Surface Antibody ? Negative - Patient is considered to be not immune to infection with HBV. ? ? Positive - Anti-HBs detected at greater than or equal to 12 mIU/mL. ?Patient is considered to be immune to infection with HBV. ?[facility] B SURFACE [id number] 00:59:74KUjLR0711/28/2022 6:59 PM CSTUTMB LABORATORY SERVICESHBsAb Semi- Smlsokslrymf63/12/2023 6:59 PM CSTUTMB LABORATORY SERVICESInterpretation: ?Hepatitis B Surface Antibody ? Negative - Patient is considered to be not immune to infection with HBV. ? ? Positive - Anti-HBs detected at greater than or equal to 12 mIU/mL. ?Patient is considered to be immune to infection with HBV. ?[facility] Packed RBC (in units), 2 Units 2022-11-28 21:01:02* Test Item Value Reference Range Interpretation Comme nts Cross Match Result (test code = 4409) Compatible ISBT Blood Type Code (test code = 833330) Unit Blood Type (test code = 4410) A Pos Unit Number (test code = 4411) [id number] Blood Expiration Date & Time (test code = 720701) Status Information (test code = 4412) Issued Product Identification (test code = 4413) Red Blood Cells Product Code (test code = 4414) [id number] Performed at [facility] B Laboratory Services [facility] Blood [address] [place] [address]Qtqz Free: [phone] No. [id number] [facility] Packed RBC (in units), 2 Units 2022-11-28 21:01:02* Test Item Value Reference Range Interpretation Comme nts Cross Match Result (test code = 4409) Compatible ISBT Blood Type Code (test code = 800277) Unit Blood Type (test code = 4410) A Pos Unit Number (test code = 4411) [id number] Blood Expiration Date & Time (test code = 272120) Status Information (test code = 4412) Issued Product Identification (test code = 4413) Red Blood Cells Product Code (test code = 4414) [id number] Performed at [facility] Laboratory [facility] Blood [place] [id number] Free: [phone] No. [id number] [facility] Packed RBC (in units), 2 Units 2022-11-28 17:22:45* Test Item Value Reference Range Interpretation Comme nts Cross Match Result (test code = 4409) Compatible ISBT Blood Type Code (test code = 074142) Unit Blood Type (test code = 4410) A Pos Unit Number (test code = 4411) [id number] Blood Expiration Date & Time (test code = 668915) Status Information (test code = 4412) Released Product Identification (test code = 4413) Red Blood Cells Product Code (test code = 4414) [id number] Performed at [facility] Blood [address] Free: [phone] No. [id number] [facility] Packed RBC (in units), 2 Units 2022-11-28 17:22:45* Test Item Value Reference Range Interpretation Comme nts Cross Match Result (test code = 4409) Compatible ISBT Blood Type Code (test code = 524973) Unit Blood Type (test code = 4410) A Pos Unit Number (test code = 4411) [id number] Blood Expiration Date & Time (test code = 745302) Status Information (test code = 4412) Released Product Identification (test code = 4413) Red Blood Cells Product Code (test code = 4414) [id number] Performed at [facility] Blood [address] [place] [address] Free: [phone] No. [id number] [facility] and Screen - ONCE [id number] 17:22:00 * Test Item Value Reference Range Interpretation Comme nts ABO & RH (test code = 20) A POSITIVE Performed at [facility] Laboratory Services - [address] [address]Pjmg Free: [phone] No. [id number] IAT (test code = 1185) Negative Performed at [facility] Laboratory Services - [address] [address]Pweq Free: [phone] No. [id number] [facility] and Screen - ONCE [id number] 17:22:00 * Test Item Value Reference Range Interpretation Comme nts ABO & RH (test code = 20) A POSITIVE Performed at [facility] Laboratory Services - [address] [address]Almw Free: [phone] No. [id number] IAT (test code = 1185) Negative Performed at [facility] Laboratory Services - [address] [address]Rnsl Free: [phone] No. [id number] [facility]anoRETICULOCYTES [id number] 16:02:20* Test Item Value Reference Range Interpretation Comme nts RETIC Count Automated (test code = 0955917998) 3.65 % 0.59-2.24 H RETIC Absolute Count (test code = 1735674166) See_Comment H [Automa maksim message] The system which generated this result transmitted reference range: 0.0260 - 0.1170 10*6/?L. The reference range was not used to interpret this result as normal/abnormal. IRF % (test code = 6338767976) 27.80 % 2.00-19.10 H RETIC-HE (test code = 9002167711) 22.4 pg 27.3-36.4 L Lab Interpretation (test code = 98196-7) Abnormal [facility]ano[facility]ICUL[facility]TES [id number] 16:02:20* Test Item Value Reference Range Interpretation Comme nts RETIC Count Automated (test code = 1998569807) 3.65 % 0.59-2.24 H RETIC Absolute Count (test code = 3902389075) See_Comment H [Automa maksim message] The system which generated this result transmitted reference range: 0.0260 - 0.1170 10*6/?L. The reference range was not used to interpret this result as normal/abnormal. IRF % (test code = 5372716460) 27.80 % 2.00-19.10 H RETIC-HE (test code = 5014278918) 22.4 pg 27.3-36.4 L Lab Interpretation (test code = 99374-5) Abnormal [facility] PlanoHCV [id number] 13:53:50* Test Item Value Reference Range Interpretation Comme nts HCV Ab (test code = 33183-8) Positive HCV Semi-Quantitative (test code = 88218-5) APRI (test code = 0277060338) PANFILO (test code = PANFILO) Positive for HCV antibody. This specimen has been reflexed to qualitative PCR test and submitted to [facility]. ?A report will be issued by that laboratory. ?If any questions, contact the Clinical Chemistry Director alberene stone setter at [phone].APRI score < 0.5: Suggestive of little to no fibrosisAPRI score > 1.5: Suggestive of moderate to severe fibrosisAPRI score > 2.0: Highly suggestive of cirrhosis. [facility]anoHCV [id number] 13:53:50* Test Item Value Reference Range Interpretation Comme nts HCV Ab (test code = 47470-9) Positive HCV Semi-Quantitative (test code = 81016-2) APRI (test code = 2118950681) PANFILO (test code = PANFILO) Positive for HCV antibody. This specimen has been reflexed to qualitative PCR test and submitted to [facility]. ?A report will be issued by that laboratory. ?If any questions, contact the Clinical Chemistry Director alberene stone setter at [phone].APRI score < 0.5: Suggestive of little to no fibrosisAPRI score > 1.5: Suggestive of moderate to severe fibrosisAPRI score > 2.0: Highly suggestive of cirrhosis. [facility] PlanoFERRITIN [id number] 13:01:20* Test Item Value Reference Range Interpretation Comme nts FERRITIN (test code = 3749842437) 5.9 ng/mL 18.0-464.0 L PANFILO (test code = PANFILO) Biotin has been reported to cause a negative bias, interpret results relative to patient's use of biotin. Lab Interpretation (test code = 26289-8) Abnormal [facility]anoFERRITIN [id number] 13:01:20* Test Item Value Reference Range Interpretation Comme nts FERRITIN (test code = 9389719391) 5.9 ng/mL 18.0-464.0 L PANFILO (test code = PANFILO) Biotin has been reported to cause a negative bias, interpret results relative to patient's use of biotin. Lab Interpretation (test code = 53544-0) Abnormal [facility] [id number] 12:32:57* Test Item Value Reference Range Interpretation Comme nts IRON (test code = 8484249857) 15 ug/dL 50-160 L TIBC (test code = 2804053235) 355 ug/dL 250-410 % FE SAT (test code = 4752604239) 4 % 20-50 L Lab Interpretation (test cod e = 99540-2) Abnormal [facility] PlanoIRO [id number] 12:32:57* Test Item Value Reference Range Interpretation Comme nts IRON (test code = 5352465030) 15 ug/dL 50-160 L TIBC (test code = 4796703534) 355 ug/dL 250-410 % FE SAT (test code = 8561626149) 4 % 20-50 L Lab Interpretation (test cod e = 75427-8) Abnormal [facility] PlanoVITAMIN B12, [id number] 09:11:32* Test Item Value Reference Range Interpretation Comme nts VIT B12 (test code = 8204501162) 919 pg/mL 240-930 PANFILO (test code = PANFILO) Biotin has been reported to cause a positive bias, interpret results relative to patient's use of biotin. Lab Interpretation (test code = 67639-3) Normal [facility] PlanoFOLATE2023-01-12 09:11:32* Test Item Value Reference Range Interpretation Comme nts FOLATE SER (test code = 4705848479) 11.8 ng/mL 3.0-20.0 Lab Interpretation (test cod e = 22137-9) Normal [facility]anoVITAMIN B12, [id number] 09:11:32* Test Item Value Reference Range Interpretation Comme nts VIT B12 (test code = 3852992559) 919 pg/mL 240-930 PANFILO (test code = PANFILO) Biotin has been reported to cause a positive bias, interpret results relative to patient's use of biotin. Lab Interpretation (test code = 65386-6) Normal [facility]anoFOLATE2023-01-12 09:11:32* Test Item Value Reference Range Interpretation Comme nts FOLATE SER (test code = 4935679276) 11.8 ng/mL 3.0-20.0 Lab Interpretation (test cod e = 57817-7) Normal [facility] PlanoHEPATITIS B SURFACE [id number] 08:36:12 * Test Item Value Reference Range Interpretation Comme nts HBsAg Semi-Quantitative (tho t code = 5195-3) Negative Negative [facility] B SURFACE [id number] 08:36:12 * Test Item Value Reference Range Interpretation Comme nts HBsAg Semi-Quantitative (tho t code = 5195-3) Negative Negative [facility] PlanoCBC with Pdbxhcyytqhh0506-87-39 07:59:26* Test Item Value Reference Range Interpretation Comme nts WBC (test code = 6690-2) See_Comment L [Automated messa ge] The system which generated this result transmitted reference range: 4.20 - 10.70 10*3/?L. The reference range was not used to interpret this result as normal/abnormal. RBC (test code = 789-8) See_Comment L [Automated messa ge] The system which generated this result transmitted reference range: 4.26 - 5.52 10*6/?L. The reference range was not used to interpret this result as normal/abnormal. HGB (test code = 718-7) 8.7 g/dL 12.2-16.4 L HCT (test code = 4544-3) 27.6 % 38.4-49.3 L MCV (test code = 787-2) 71.5 fL 81.7-95.6 L MCH (test code = 785-6) 22.5 pg 26.1-32.7 L MCHC (test code = 786-4) 31.5 g/dL 31.2-35.0 RDW-SD (test code = 72640-3) 69.2 fL 38.5-51.6 H RDW-CV (test code = 788-0) 27.3 % 12.1-15.4 H PLT (test code = 777-3) See_Comment L [Automated [employer] ge] The system which generated this result transmitted reference range: 150 - 328 10*3/?L. The reference range was not used to interpret this result as normal/abnormal. MPV (test code = 02826-3) Not Measured IPF % (test code = 0710427949) 3.0 % 1.2-10.7 Platelet count measured by fluorescence method. NRBC/100 WBC (test code = 6507359916) See_Comment [Automated [employer] ssage] The system which generated this result transmitted reference range: 0.0 - 10.0 /100 WBCs. The reference range was not used to interpret this result as normal/abnormal. NRBC x10^3 (test code = 2710780917) See_Comment [Automated [employer]] The system which generated this result transmitted reference range: 10*3/?L. The reference range was not used to interpret this result as normal/abnormal. GRAN MAT (NEUT) % (test code = 770-8) 57.9 % IMM GRAN % (test code = 1741198211) 0.40 % LYMPH % (test code = 736-9) 31.0 % MONO % (test code = 5905-5) 7.5 % EOS % (test code = 713-8) 2.8 % BASO % (test code = 706-2) 0.4 % GRAN MAT x10^3(ANC) (test code = 9864597839) 1.63 10*3/uL 1.99-6.95 L IMM GRAN x10^3 (test code = 1516098550) 0.00-0.06 LYMPH x10^3 (test code = 731-0) 0.87 10*3/uL 1.09-3.23 L MONO x10^3 (test code = 742-7) 0.21 10*3/uL 0.36-1.02 L EOS x10^3 (test code = 711-2) 0.08 10*3/uL 0.06-0.53 BASO x10^3 (test code = 704-7) 0.01-0.09 SAROJ CELLS (test code = 7790-9) 2+ See_Comment A [Automated messa ge] The system which generated this result transmitted reference range: (none). The reference range was not used to interpret this result as normal/abnormal. POLYCHROMASIA (test code = 66635-5) 2+ See_Comment [Automated messa ge] The system which generated this result transmitted reference range: 2+. The reference range was not used to interpret this result as normal/abnormal. SCHISTOCYTES (test code = 800-3) 1+ A Lab Interpretation (test code = 28885-5) Abnormal [facility] with Rcwvolcnqkga4242-98-09 07:59:26* Test Item Value Reference Range Interpretation Comme nts WBC (test code = 6690-2) See_Comment L [Automated messa ge] The system which generated this result transmitted reference range: 4.20 - 10.70 10*3/?L. The reference range was not used to interpret this result as normal/abnormal. RBC (test code = 789-8) See_Comment L [Automated messa ge] The system which generated this result transmitted reference range: 4.26 - 5.52 10*6/?L. The reference range was not used to interpret this result as normal/abnormal. HGB (test code = 718-7) 8.7 g/dL 12.2-16.4 L HCT (test code = 4544-3) 27.6 % 38.4-49.3 L MCV (test code = 787-2) 71.5 fL 81.7-95.6 L MCH (test code = 785-6) 22.5 pg 26.1-32.7 L MCHC (test code = 786-4) 31.5 g/dL 31.2-35.0 RDW-SD (test code = 19012-7) 69.2 fL 38.5-51.6 H RDW-CV (test code = 788-0) 27.3 % 12.1-15.4 H PLT (test code = 777-3) See_Comment L [Automated messa ge] The system which generated this result transmitted reference range: 150 - 328 10*3/?L. The reference range was not used to interpret this result as normal/abnormal. MPV (test code = 17136-3) Not Measured IPF % (test code = 5058799761) 3.0 % 1.2-10.7 Platelet count measured by fluorescence method. NRBC/100 WBC (test code = 8929737215) See_Comment [Automated [employer] ssage] The system which generated this result transmitted reference range: 0.0 - 10.0 /100 WBCs. The reference range was not used to interpret this result as normal/abnormal. NRBC x10^3 (test code = 2523586069) See_Comment [Automated [employer]] The system which generated this result transmitted reference range: 10*3/?L. The reference range was not used to interpret this result as normal/abnormal. GRAN MAT (NEUT) % (test code = 770-8) 57.9 % IMM GRAN % (test code = 0030575197) 0.40 % LYMPH % (test code = 736-9) 31.0 % MONO % (test code = 5905-5) 7.5 % EOS % (test code = 713-8) 2.8 % BASO % (test code = 706-2) 0.4 % GRAN MAT x10^3(ANC) (test code = 0893326758) 1.63 10*3/uL 1.99-6.95 L IMM GRAN x10^3 (test code = 1712936453) 0.00-0.06 LYMPH x10^3 (test code = 731-0) 0.87 10*3/uL 1.09-3.23 L MONO x10^3 (test code = 742-7) 0.21 10*3/uL 0.36-1.02 L EOS x10^3 (test code = 711-2) 0.08 10*3/uL 0.06-0.53 BASO x10^3 (test code = 704-7) 0.01-0.09 SAROJ CELLS (test code = 7790-9) 2+ See_Comment A [Automated [employer]] The system which generated this result transmitted reference range: (none). The reference range was not used to interpret this result as normal/abnormal. POLYCHROMASIA (test code = 35461-0) 2+ See_Comment [Automated [employer]] The system which generated this result transmitted reference range: 2+. The reference range was not used to interpret this result as normal/abnormal. SCHISTOCYTES (test code = 800-3) 1+ A Lab Interpretation (test code = 43437-5) Abnormal [facility] Metabolic Panel (NA, K, CL, CO2, GLUCOSE, BUN, CREATININE, CA)2022-11-28 07:51:29* Test Item Value Reference Range Interpretation Comme nts NA (test code = 6090283638) 135 mmol/L 135-145 K (test code = 8889390900) 3.5 mmol/L 3.5-5.0 CL (test code = 6030622178) 106 mmol/L 98-108 CO2 TOTAL (test code = 5827339922) 23 mmol/L 23-31 AGAP (test code = 5736850796) 2-16 BUN (test code = 1939523409) 15 mg/dL 7-23 GLUCOSE (test code = 2689732817) 99 mg/dL 70-110 CREATININE (test code = 0613241479) 0.66 mg/dL 0.60-1.25 CALCIUM (test code = 4254979311) 7.0 mg/dL 8.6-10.6 L eGFR (test code = 6483113847) mL/min/1.73m2 PANFILO (test code = PANFILO) Association of Glomerular Filtration Rate (GFR) and Staging of Kidney Disease* + --+ --+ ------+| GFR (mL/min/1.73 m2) ?| With Kidney Damage ?| ?Without Kidney Damage+ --------+ --------+ +| ?>90 ?| ?Stage one ?| ? Normal ?+ ---+ ---+ -------+| ?60-89 ?| ?Stage two ?| ? Decreased GFR ? + --+ --+ ------+| ?30-59 ?| ?Stage three ?| ? Stage three ? + --+ --+ ------+| ?15-29 ?| ?Stage four ? | ? Stage four ?+ ---+ ---+ -------+| ?<15 (or dialysis) ? ?| ?Stage five ? | ? Stage five ?+ ---+ ---+ -------+ *Each stage assumes the associated GFR level has been in effect for at least three months. ?Stages 1 to 5, with or without kidney disease, indicate chronic kidney disease. Notes: Determination of stages one and two (with eGFR >59mL/min/1.73 m2) requires estimation of kidney damage for at least three months as defined by structural or functional abnormalities of the kidney, manifested by either:Pathological abnormalities or Markers of kidney damage (including abnormalities in the composition of the blood or urine or abnormalities in imaging tests). Lab Interpretation (test code = 66796-5) Abnormal [facility]anoMagnesium [id number] 07:51:29* Test Item Value Reference Range Interpretation Comme nts MAGNESIUM (test code = 6540204083) 1.5 mg/dL 1.7-2.4 L Lab Interpretation (test cod e = 78111-4) Abnormal [facility]anoPhosphorus Ifqrf9791-63-42 07:51:29* Test Item Value Reference Range Interpretation Comme nts PHOSPHORUS (test code = 4891832508) 2.7 mg/dL 2.5-5.0 Lab Interpretation (test cod e = 81090-8) Normal [facility]anoB[facility] Metabolic Panel (NA, K, CL, CO2, GLUCOSE, BUN, CREATININE, CA)2022-11-28 07:51:29* Test Item Value Reference Range Interpretation Comme nts NA (test code = 6795712150) 135 mmol/L 135-145 K (test code = 4775495609) 3.5 mmol/L 3.5-5.0 CL (test code = 9243420975) 106 mmol/L 98-108 CO2 TOTAL (test code = 5571451142) 23 mmol/L 23-31 AGAP (test code = 7162669235) 2-16 BUN (test code = 7491316959) 15 mg/dL 7-23 GLUCOSE (test code = 9319842139) 99 mg/dL 70-110 CREATININE (test code = 4507479653) 0.66 mg/dL 0.60-1.25 CALCIUM (test code = 8936199976) 7.0 mg/dL 8.6-10.6 L eGFR (test code = 4274923700) mL/min/1.73m2 PANFILO (test code = PANFILO) Association of Glomerular Filtration Rate (GFR) and Staging of Kidney Disease* + --+ --+ ------+| GFR (mL/min/1.73 m2) ?| With Kidney Damage ?| ?Without Kidney Damage+ --------+ --------+ +| ?>90 ?| ?Stage one ?| ? Normal ?+ ---+ ---+ -------+| ?60-89 ?| ?Stage two ?| ? Decreased GFR ? + --+ --+ ------+| ?30-59 ?| ?Stage three ?| ? Stage three ? + --+ --+ ------+| ?15-29 ?| ?Stage four ? | ? Stage four ?+ ---+ ---+ -------+| ?<15 (or dialysis) ? ?| ?Stage five ? | ? Stage five ?+ ---+ ---+ -------+ *Each stage assumes the associated GFR level has been in effect for at least three months. ?Stages 1 to 5, with or without kidney disease, indicate chronic kidney disease. Notes: Determination of stages one and two (with eGFR >59mL/min/1.73 m2) requires estimation of kidney damage for at least three months as defined by structural or functional abnormalities of the kidney, manifested by either:Pathological abnormalities or Markers of kidney damage (including abnormalities in the composition of the blood or urine or abnormalities in imaging tests). Lab Interpretation (test code = 77869-0) Abnormal [facility]ano[facility] [id number] 07:51:29* Test Item Value Reference Range Interpretation Comme nts MAGNESIUM (test code = 4566116405) 1.5 mg/dL 1.7-2.4 L Lab Interpretation (test cod e = 50209-1) Abnormal [facility]ano[facility]osphorus [id number] 07:51:29* Test Item Value Reference Range Interpretation Comme nts PHOSPHORUS (test code = 2575081055) 2.7 mg/dL 2.5-5.0 Lab Interpretation (test cod e = 97260-6) Normal [facility]anoABORH Confirmation (Lab Only)2022-11-28 01:49:57* Test Item Value Reference Range Interpretation Comme nts ABO & RH (test code = 20) A Positive Performed at [facility] Blood [address]Toll Free: [phone] No. [id number] [facility] PlanoABORH Confirmation (Lab Only)2022-11-28 01:49:57* Test Item Value Reference Range Interpretation Comme nts ABO & RH (test code = 20) A Positive Performed at [address]Toll Free: [phone] No. [id number] [facility] PlanoType and Screen - ONCE [id number] 01:35:40 * Test Item Value Reference Range Interpretation Comme nts ABO & RH (test code = 20) A Positive Performed at [place] [address]Toll Free: [phone] No. [id number] IAT (test code = 1185) Negative Performed at [address]Toll Free: [phone] No. [id number] [facility]anoType and Screen - ONCE [id number] 01:35:40 * Test Item Value Reference Range Interpretation Comme nts ABO & RH (test code = 20) A Positive Performed at [facility] Blood [place] [address]Toll Free: [phone] No. [id number] IAT (test code = 1185) Negative Performed at [facility] Blood [address]Toll Free: [phone] No. [id number] [facility] PlanoCOMP. METABOLIC PANEL ([id number])2022-11-28 00:33:56* Test Item Value Reference Range Interpretation Comme nts NA (test code = 3867662096) 134 mmol/L 135-145 L K (test code = 0238753467) 3.7 mmol/L 3.5-5.0 CL (test code = 1664488182) 106 mmol/L 98-108 CO2 TOTAL (test code = 8494264277) 23 mmol/L 23-31 AGAP (test code = 2925397767) 2-16 BUN (test code = 7725130079) 19 mg/dL 7-23 GLUCOSE (test code = 1608623694) 143 mg/dL 70-110 H CREATININE (test code = 9539636449) 0.79 mg/dL 0.60-1.25 TOTAL BILI (test code = 8781762920) 0.7 mg/dL 0.1-1.1 CALCIUM (test code = 9147456080) 7.2 mg/dL 8.6-10.6 L T PROTEIN (test code = 3370287644) 6.5 g/dL 6.3-8.2 ALBUMIN (test code = 1333635895) 2.6 g/dL 3.5-5.0 L ALK PHOS (test code = 0603239338) 113 U/L 34-122 ALTv (test code = 1742-6) 56 U/L 5-50 H AST(SGOT) (test code = 2413659502) 84 U/L 13-40 H eGFR (test code = 9881963240) mL/min/1.73m2 PANFILO (test code = PANFILO) Association of Glomerular Filtration Rate (GFR) and Staging of Kidney Disease* + --+ --+ ------+| GFR (mL/min/1.73 m2) ?| With Kidney Damage ?| ?Without Kidney Damage+ --------+ --------+ +| ?>90 ?| ?Stage one ?| ? Normal ?+ ---+ ---+ -------+| ?60-89 ?| ?Stage two ?| ? Decreased GFR ? + --+ --+ ------+| ?30-59 ?| ?Stage three ?| ? Stage three ? + --+ --+ ------+| ?15-29 ?| ?Stage four ? | ? Stage four ?+ ---+ ---+ -------+| ?<15 (or dialysis) ? ?| ?Stage five ? | ? Stage five ?+ ---+ ---+ -------+ *Each stage assumes the associated GFR level has been in effect for at least three months. ?Stages 1 to 5, with or without kidney disease, indicate chronic kidney disease. Notes: Determination of stages one and two (with eGFR >59mL/min/1.73 m2) requires estimation of kidney damage for at least three months as defined by structural or functional abnormalities of the kidney, manifested by either:Pathological abnormalities or Markers of kidney damage (including abnormalities in the composition of the blood or urine or abnormalities in imaging tests). Lab Interpretation (test code = 44118-3) Abnormal [facility]anoCOMP. METABOLIC PANEL ([id number])2022-11-28 00:33:56* Test Item Value Reference Range Interpretation Comme nts NA (test code = 9483560461) 134 mmol/L 135-145 L K (test code = 5154944022) 3.7 mmol/L 3.5-5.0 CL (test code = 5520386061) 106 mmol/L 98-108 CO2 TOTAL (test code = 4944277674) 23 mmol/L 23-31 AGAP (test code = 4870818313) 2-16 BUN (test code = 3227042144) 19 mg/dL 7-23 GLUCOSE (test code = 5938549196) 143 mg/dL 70-110 H CREATININE (test code = 0502968066) 0.79 mg/dL 0.60-1.25 TOTAL BILI (test code = 8659765528) 0.7 mg/dL 0.1-1.1 CALCIUM (test code = 5756640582) 7.2 mg/dL 8.6-10.6 L T PROTEIN (test code = 3034841261) 6.5 g/dL 6.3-8.2 ALBUMIN (test code = 1104836138) 2.6 g/dL 3.5-5.0 L ALK PHOS (test code = 2229158279) 113 U/L 34-122 ALTv (test code = 1742-6) 56 U/L 5-50 H AST(SGOT) (test code = 6173888640) 84 U/L 13-40 H eGFR (test code = [id number]) mL/min/1.73m2 PANFILO (test code = PANFILO) Association of Glomerular Filtration Rate (GFR) and Staging of Kidney Disease* + --+ --+ ------+| GFR (mL/min/1.73 m2) ?| With Kidney Damage ?| ?Without Kidney Damage+ --------+ --------+ +| ?>90 ?| ?Stage one ?| ? Normal ?+ ---+ ---+ -------+| ?60-89 ?| ?Stage two ?| ? Decreased GFR ? + --+ --+ ------+| ?30-59 ?| ?Stage three ?| ? Stage three ? + --+ --+ ------+| ?15-29 ?| ?Stage four ? | ? Stage four ?+ ---+ ---+ -------+| ?<15 (or dialysis) ? ?| ?Stage five ? | ? Stage five ?+ ---+ ---+ -------+ *Each stage assumes the associated GFR level has been in effect for at least three months. ?Stages 1 to 5, with or without kidney disease, indicate chronic kidney disease. Notes: Determination of stages one and two (with eGFR >59mL/min/1.73 m2) requires estimation of kidney damage for at least three months as defined by structural or functional abnormalities of the kidney, manifested by either:Pathological abnormalities or Markers of kidney damage (including abnormalities in the composition of the blood or urine or abnormalities in imaging tests). Lab Interpretation (test code = 45727-9) [facility]* Test Item Value Reference Range Interpretation Comme nts LIPASE (test code = 3448911712) 337 U/L 0-220 H Lab Interpretation (test cod e = 50180-8) [facility]:16* Test Item Value Reference Range Interpretation Comme nts LIPASE (test code = 1163011393) 337 U/L 0-220 H Lab Interpretation (test cod e = 29422-0) Abnormal [facility]2023-01-12 00:30:38* Test Item Value Reference Range Interpretation Comme nts AMMONIA (test code = 5050244657) 40 umol/L 9-33 H Slight hemolysis Lab Interpretation (test code = 87099-1) Abnormal [facility]2023-01-12 00:30:38* Test Item Value Reference Range Interpretation Comme nts AMMONIA (test code = 9311028158) 40 umol/L 9-33 H Slight hemolysis Lab Interpretation (test code = 65597-9) [facility] / ONK3070-23-66 00:21:14* Test Item Value Reference Range Interpretation Comme nts PROTIME PATIENT (test code = 5964-2) See_Comment H [Automated messa ge] The system which generated this result transmitted reference range: 12.0 - 14.7 Seconds. The reference range was not used to interpret this result as normal/abnormal. INR (test code = 6301-6) Normal INR <1.1; Warfarin Therapeutic range 2.0 to 3.0 or 2.5 to 3.5, depending upon the indications. Lab Interpretation (test code = 91098-8) [facility] / BYT0470-22-20 00:21:14* Test Item Value Reference Range Interpretation Comme [facility] PROTIME PATIENT (test code = 5964-2) See_Comment H [Automated messa ge] The system which generated this result transmitted reference range: 12.0 - 14.7 Seconds. The reference range was not used to interpret this result as normal/abnormal. INR (test code = 6301-6) Normal INR <1.1; Warfarin Therapeutic range 2.0 to 3.0 or 2.5 to 3.5, depending upon the indications. Lab Interpretation (test code = 41239-8) Abnormal [facility] WITH EBPL3841-61-34 00:20:28* Test Item Value Reference Range Interpretation Comme [facility] WBC (test code = 6690-2) See_Comment L [Automated messa ge] The system which generated this result transmitted reference range: 4.20 - 10.70 10*3/?L. The reference range was not used to interpret this result as normal/abnormal. RBC (test code = 789-8) See_Comment L [Automated messa ge] The system which generated this result transmitted reference range: 4.26 - 5.52 10*6/?L. The reference range was not used to interpret this result as normal/abnormal. HGB (test code = 718-7) 5.5 g/dL 12.2-16.4 L HCT (test code = 4544-3) 18.5 % 38.4-49.3 L MCV (test code = 787-2) 70.9 fL 81.7-95.6 L MCH (test code = 785-6) 21.1 pg 26.1-32.7 L MCHC (test code = 786-4) 29.7 g/dL 31.2-35.0 L RDW-SD (test code = 25283-3) 66.7 fL 38.5-51.6 H RDW-CV (test code = 788-0) 27.0 % 12.1-15.4 H PLT (test code = 777-3) See_Comment L [Automated [employer]] The system which generated this result transmitted reference range: 150 - 328 10*3/?L. The reference range was not used to interpret this result as normal/abnormal. MPV (test code = 67631-2) Not Measured IPF % (test code = 7255916660) 4.7 % 1.2-10.7 Platelet count measured by fluorescence method. NRBC/100 WBC (test code = 2513687000) See_Comment [Automated [employer] ssage] The system which generated this result transmitted reference range: 0.0 - 10.0 /100 WBCs. The reference range was not used to interpret this result as normal/abnormal. NRBC x10^3 (test code = 8625850857) See_Comment [Automated [employer]] The system which generated this result transmitted reference range: 10*3/?L. The reference range was not used to interpret this result as normal/abnormal. GRAN MAT (NEUT) % (test code = 770-8) 53.0 % IMM GRAN % (test code = 7705966506) 0.50 % LYMPH % (test code = 736-9) 32.6 % MONO % (test code = 5905-5) 9.7 % EOS % (test code = 713-8) 4.0 % BASO % (test code = 706-2) 0.2 % GRAN MAT x10^3(ANC) (test code = 6147089725) 2.13 10*3/uL 1.99-6.95 IMM GRAN x10^3 (test code = 2984456685) 0.00-0.06 LYMPH x10^3 (test code = 731-0) 1.31 10*3/uL 1.09-3.23 MONO x10^3 (test code = 742-7) 0.39 10*3/uL 0.36-1.02 EOS x10^3 (test code = 711-2) 0.16 10*3/uL 0.06-0.53 BASO x10^3 (test code = 704-7) 0.01-0.09 Lab Interpretation (test code = 85506-5) Abnormal [facility] WITH GXQR5695-61-37 00:20:28* Test Item Value Reference Range Interpretation Comme nts WBC (test code = 6690-2) See_Comment L [Automated messa ge] The system which generated this result transmitted reference range: 4.20 - 10.70 10*3/?L. The reference range was not used to interpret this result as normal/abnormal. RBC (test code = 789-8) See_Comment L [Automated messa ge] The system which generated this result transmitted reference range: 4.26 - 5.52 10*6/?L. The reference range was not used to interpret this result as normal/abnormal. HGB (test code = 718-7) 5.5 g/dL 12.2-16.4 L HCT (test code = 4544-3) 18.5 % 38.4-49.3 L MCV (test code = 787-2) 70.9 fL 81.7-95.6 L MCH (test code = 785-6) 21.1 pg 26.1-32.7 L MCHC (test code = 786-4) 29.7 g/dL 31.2-35.0 L RDW-SD (test code = 63397-5) 66.7 fL 38.5-51.6 H RDW-CV (test code = 788-0) 27.0 % 12.1-15.4 H PLT (test code = 777-3) See_Comment L [Automated messa ge] The system which generated this result transmitted reference range: 150 - 328 10*3/?L. The reference range was not used to interpret this result as normal/abnormal. MPV (test code = 79481-1) Not Measured IPF % (test code = 8015776537) 4.7 % 1.2-10.7 Platelet count measured by fluorescence method. NRBC/100 WBC (test code = 1362012264) See_Comment [Automated me ssage] The system which generated this result transmitted reference range: 0.0 - 10.0 /100 WBCs. The reference range was not used to interpret this result as normal/abnormal. NRBC x10^3 (test code = 2486661464) See_Comment [Automated messa ge] The system which generated this result transmitted reference range: 10*3/?L. The reference range was not used to interpret this result as normal/abnormal. GRAN MAT (NEUT) % (test code = 770-8) 53.0 % IMM GRAN % (test code = 4670890044) 0.50 % LYMPH % (test code = 736-9) 32.6 % MONO % (test code = 5905-5) 9.7 % EOS % (test code = 713-8) 4.0 % BASO % (test code = 706-2) 0.2 % GRAN MAT x10^3(ANC) (test code = 1894544531) 2.13 10*3/uL 1.99-6.95 IMM GRAN x10^3 (test code = 6311018435) 0.00-0.06 LYMPH x10^3 (test code = 731-0) 1.31 10*3/uL 1.09-3.23 MONO x10^3 (test code = 742-7) 0.39 10*3/uL 0.36-1.02 EOS x10^3 (test code = 711-2) 0.16 10*3/uL 0.06-0.53 BASO x10^3 (test code = 704-7) 0.01-0.09 Lab Interpretation (test code = 00333-0) Abnormal [facility] Notes Date/Time Note Provider Source 2024-01-25 18:41:42 wx5BtD+a/6uKXfKn8TYAkPKE7SfvWdspHwK frSYsXiLj34YYXpS43HIUgUDDC/Ov2675-7 01-24T18:41:42 D/c and folow up give. Iv removed cath intact. 14647-5Ukyimzqjv department PkdyUT6289-62-16F82:41:55[facility] NoteTXT1.2.840.051537.1.13.104.2.7. 2.509021|[id number] for patient ctyl65201-3UnlfDHDSNBDNBYNNqhjipblu C-CDA narrative [id number] MARTINEZ[address] De[id number] 7SXBSTMYDVGWGHKSOTEGXUR9121-50-68X7 8:41:551.2.840.354791.1.72.3.15|1.2 .840.964527.1.13.104.2.7.2.727879_2 [id number] Selene Sarabia RN [facility] 2024-01-25 17:25:27 XM6eur7d2LBJxMZ4aFvQ6+VmD9vKmX3tXjA mgXJL0o6CM9sgi4ZUBqf1GjiSOMxh9803-2 01-24T17:25:27 Pt given iv lasix, and a urinal. Pt medicated for pqin 7/10 pressure in abdomen 71154-3Uhhuwjhyp department RkbdPN8536-31-40I54:25:48[facility] NoteTXT1.2.840.850456.1.13.104.2.7. 2.127071|[id number] for patient giwt96887-3HnnkESZZEQNQKLWLpitnwttd C-CDA narrative text[address] Zbe[id number] 9XGKEQVMIXZOGDVMEQXBFJA9782-33-55D6 7:25:481.2.840.226216.1.72.3.15|1.2 .840.011417.1.13.104.2.7.2.727879_2 [id number] [facility] 2024-01-25 16:56:38 57+Nac89EJcQ8U8BnuzNBAZQwQZ60sQuP5C KNZNkl4VVJtcXg4QJfaYPeyk9pM/d7381-5 6:56:38 Pt cathed 50ml urine obtained 37275-8Rlaaklpqu department SzsuQJ0130-80-62Z08:56:47[facility] NoteTXT1.2.840.653516.1.13.104.2.7. 2.318061|[id number] for patient ncvj52744-9LmklOCBUXQRWRPMZsnmlcawo C-CDA narrative [address] Qe[id number] 4PICWODNAFRFETYRTBBPYRO5994-69-09W1 6:56:471.2.840.562951.1.72.3.15|1.2 .840.836343.1.13.104.2.7.2.727879_2 [id number] [facility] 2024-01-25 16:18:33 CO+cBeLfkACwjzn1JOZKyG2Q93Iu1jZC+So svOZnmP7FmINEo6ztXSDKvV4Jj/TL4557-9 6:18:33 Bladder scan showed 750ml residual post void in bladder. 61288-1Nflbrnuaz department ZkqdNQ7396-11-39E20:19:00[facility] NoteTXT1.2.840.776576.1.13.104.2.7. 2.491781|[id number] for patient vaqn01507-6BxteZNGINZGRFZDOygqxerfz C-CDA narrative textUT[address] [id number] 6VSGUDJEZAEGUVUEIURLUMM1091-94-26C7 6:19:001.2.840.356489.1.72.3.15|1.2 .840.544933.1.13.104.2.7.2.727879_2 [id number] [facility] 2024-01-25 15:46:03 qQtc8sUSE8BLD1KokQn+HksanzQ6R45JI/G B07MEBw3Z8fbVphVsfuuWIZ3zYgNp1376-1 5:46:03 Pt presents with c/o abd distention and difficulty urinating. Pt states he was just seen here a couple days ago for similar thing and it is just getting worse. Pt also reports not being able to have a BM.Pt has hx of cirrhosis 15118-5Vpyszdwdf department Triage lwzjZS9472-36-32T78:48:35[facility] Triage noteTXT1.2.840.916028.1.13.104.2.7. 2.614441|[id number] for patient mymy92048-2Xbewlpafp department NoteLNNARRATIVEFormatted C-CDA narrative [id number] E Linkes RNUT[id number] 7FDXYRXKRZENVUYORCQQVET7824-35-85S0 5:48:351.2.840.382322.1.72.3.15|1.2 .840.147540.1.13.104.2.7.2.727879_2 [id number] Bernadette Izaguirre RN [facility] 2024-01-21 13:57:02 tlhjVXJavT5siLbkvPWlxoYsEmRPk0zwSs4 lisOGIyjQLkdN9JYSoYM41JEg9ZM+3:57:02 Pt given printed and verbal discharge instructions regarding alcoholic cirrhosis, encouraged hydration,0 Prescriptions provided; 2 sent to pharmacyPt verbalized understanding of instructions, pt awake alert oriented, resp reg unlabored, skin w/d, color appropriate for race, moves all ext well,pt encouraged to follow up with pcp.Advised to seek medical attention for new/prolonged/worsening of symptoms,Symptoms improvedNo adverse reaction to meds given in ER noted upon dischargePIV d'cd, dressing to site, catheter in tact.Awake, alert oriented, resp reg unlabored, skin w/d, pt leaving amb with steady gait, in no apparent distress. 04727-3Hkwmeqaau department WdupTF7723-06-16C47:58:11Emergency department NoteTXT1.2.840.768652.1.13.104.2.7. 2.429757|[id number] for patient jrdo85102-3FmetIIYSMTRPNIBClgautmgf C-CDA narrative [id number] L Barker RNUT[address] Ljzm[id number] 2TCNUBUSOHLJXUBWRSPRWOJ6790-62-42F0 3:58:111.2.840.946377.1.72.3.15|1.2 .840.434749.1.13.104.2.7.2.727879_2 [id number] Ines Leyva RN [facility] 2024-01-21 10:04:13 tH1Cd4wGD8qaFBT3aJpPbPoY9rvD7orKWz6 cJWtRuwXI7oQdvF59ldKO94TvRxol9854-6 3-06T10:04:13 Patient to ED for ascites. Stomach started swelling and got worse 3 days ago. Reports it feels tight. No nausea vomiting or shortness of breath. Never had a paracentesis before in the past. History of liver cirrhosis. Still drink 1-2 beers a day. 50127-3Nwyjugrrc department Triage xdgfOG3078-35-50U93:05:00[facility] Triage noteTXT1.2.840.039071.1.13.104.2.7. 2.625946|[id number] for patient excy36013-3Qexhoelxi department NoteLNNARRATIVEFormatted C-CDA narrative [id number] [address]ARTINEZ[address] Dy[id number] 7VORGCHAGGLRGEQRLTNHXPG2588-54-45H7 0:05:001.2.840.364627.1.72.3.15|1.2 .840.299309.1.13.104.2.7.2.727879_2 [id number] Tod Damon RN [facility]
[2024-01-28 15:15] LABS: Absolute Lymphocytes (CBC) 0.6 K/uL (0.7-4.9); Absolute Monocytes 0.4 K/uL (0.1-1.3); Basophils % 1.1 % (0-1.3); Eosinophils % 1.2 % (0-4.4); Hematocrit 37.4 % (39.6-49.0); Hemoglobin 12.2 g/dL (13.6-17.9); Lymphocytes % 14.2 % (15.3-44.8); MCHC 32.6 g/dL (32.0-36.0); MCV 73.4 fL (80-100); MPV 8.6 fL (7.6-11.3); Monocytes % 10.7 % (3.3-12.3); Neutrophils % 72.8 % (41.7-73.7); Nucleated Red Blood Cells % 0.1 % (0-0); Platelets 159 thou/uL (152-406); Red Cell Distribution Width 22.9 % (12.1-15.2)
[2024-01-28 15:16] LABS: PT Prothrombin Time 14.6 SECONDS (9.5-12.5); PTT, Activated Partial Thromb 22.1 SECONDS (24.3-36.9); Protime INR 1.34
--- NOTE | 2024-01-28 15:20 | RAD REPORT ---
EXAM DESCRIPTION: Silvano Single View01/28/2024 1:52 pm CLINICAL HISTORY: ABDOMINAL DISTENTION COMPARISON: Chest Single View dated 05/10/2020; Abdomen Pelvis W Contrast dated 05/07/2020 TECHNIQUE: Portable AP view of the chest. FINDINGS: The lungs apart from subsegmental left basilar opacification which may be atelectatic. Pro bable calcific pleural plaque. No pneumothorax. Small bilateral layering effusions. . The cardiomedi astinal contours are unremarkable. IMPRESSION: Small bilateral pleural effusions.
[2024-01-28 15:28] LABS: Albumin 2.5 g/dL (3.4-5.0); Albumin/Globulin Ratio 0.4 (1.1-1.8); Anion Gap 7.1 mEq/L (5.0-15.0); Bilirubin Direct 0.5 mg/dL (0-0.2); Bilirubin Indirect, Calculated 0.5 mg/dL (0.2-0.8); Globulin 6.3 g/dL (2.3-3.5); Magnesium 1.7 mg/dL (1.6-2.4); Potassium 4.1 mEq/L (3.5-5.1); Protein, Total 8.8 g/dL (6.4-8.2); Troponin High Sensitivity 4.9 pg/mL (<58.9)
[2024-01-28 17:26] LABS: Blood Morphology Comment NOT SEEN (NOT SEEN); Platelet Estimate ADEQ; White Blood Cell Scan OK (OK)
--- NOTE | 2024-01-28 17:40 | RAD REPORT ---
EXAM DESCRIPTION: CT - Abdomen Pelvis W Contrast - 01/28/2024 4:29 pm CLINICAL HISTORY: Abdominal distention;Abd pain COMPARISON: Abdomen Pelvis W Contrast dated 05/07/2020 TECHNIQUE: Thin cut axial CT imaging of the abdomen and pelvis was performed following intravenous a dministration of iodinated contrast. Multiplanar reformats were generated and reviewed. All CT scans are performed using dose optimization technique as appropriate and may include automated exposure control or mA/KV adjustment according to patient size. FINDINGS: Small layering right pleural effusion with segmental right and subsegmental left atelectas is. The liver demonstrates nodular contour with left lobe and caudate lobe hypertrophy. Numerous hypoatte nuating lesions, most numerous in the left lobe, largest measuring 2.8 cm. Spleen is enlarged, measur ing 16.9 cm in long axis. Adrenal glands, and pancreas show no suspicious findings. Gallbladder and b iliary tree are also without suspicious finding. Portosystemic varicosities along the distal esophagus and upper retroperitoneum. Symmetric renal function is seen with no hydronephrosis or suspicious renal mass. Large volume free ascites. No discrete abdominal fluid collections. No dilated bowel loops or bowel w all thickening. No free air. Numerous prominent retroperitoneal lymph nodes in the upper abdomen, lar gest is below the level of the left renal vein in the left para-aortic region measuring 3.6 x 2.0 cm. Urinary bladder is decompressed limiting evaluation. Prostatic calcifications. No suspicious bony findings. IMPRESSION: Stigmata of liver cirrhosis. Numerous hypoattenuating lesions most numerous in the left lobe, largest measuring 2.8 cm. These may relate to cirrhotic or dysplastic nodules, however possibility of a developing parasellar carcinoma c annot be excluded. Additional evaluation by liver protocol MRI would be recommended if not already ob tained. Splenomegaly, portosystemic varicosities, and large volume ascites, suggesting portal hypertension. Nonspecific retroperitoneal lymphadenopathy, can be seen in the setting of portal hypertension.
--- NOTE | 2024-01-28 18:25 | ER ---
Nurse's Notes [facility] Name: Rick Brooks Age: 43 yrs Sex: Male : 1980 Arrival Date: 01/28/2024 Time: 12:53 Bed 17 Private MD: Diagnosis: Alcoholic cirrhosis of liver with ascites;Pleural effusion, not elsewhere classified Presentation: 01/27 13:06 Chief complaint: Patient states: Abdominal pain/swelling for 1 week. Had paracentesis ll1 at [facility], no relief. Medications not helping either. No fever, but has chills. Coronavirus screen: Client denies travel out of the [place] in the last 14 days. At this time, the client does not indicate any symptoms associated with coronavirus-19. Ebola Screen: Patient denies travel to an Ebola-affected area in the 21 days before illness onset. Initial Sepsis Screen: Does the patient meet any 2 criteria? No. Patient's initial sepsis screen is negative. Does the patient have a suspected source of infection? No. Patient's initial sepsis screen is negative. Risk Assessment: Do you want to hurt yourself or someone else? Patient reports no desire to harm self or others. 13:06 Method Of Arrival: Ambulatory ll1 13:06 Acuity: MARGARITA 2 ll1 13:12 Onset of symptoms was January 20, 2024. 1 Triage Assessment: 13:06 General: Appears uncomfortable, Behavior is calm, cooperative, appropriate for age. ll1 Pain: Complains of pain in abdomen Quality of pain is described as aching, pressure. GI: Reports lower abdominal pain, upper abdominal pain, bloating. Historical: - Allergies: 13:05 No Known Allergies; iw - PMHx: 13:14 liver problems; ll1 - PSHx: 13:14 None; ll1 - Immunization history:: Adult Immunizations up to date. - Social history:: Smoking status: Patient denies any tobacco usage or history of. Screenin:05 [facility] ED Fall Risk Assessment (Adult) History of falling in the last 3 months, rs5 including since admission No falls in past 3 months (0 pts) Confusion or Disorientation No (0 pts) Intoxicated or Sedated No (0 pts) Impaired Gait No (0 pts) Mobility Assist Device Used No (0 pt) Altered Elimination No (0 pt) Score/Fall Risk Level 0 - 2 = Low Risk Oriented to surroundings, Maintained a safe environment. 15:25 Abuse screen: Denies threats or abuse. Nutritional screening: No deficits noted. ap3 Tuberculosis screening: No symptoms or risk factors identified. Assessment: 13:05 General: Appears in no apparent distress. uncomfortable, Behavior is calm, cooperative. rs5 13:05 Pain: Complains of pain in abdomen Pain currently is 3 out of 10 on a pain scale. rs5 Quality of pain is described as aching, Is continuous. Neuro: Level of Consciousness is awake, alert, obeys commands, Oriented to person, place, time, situation. Cardiovascular: Patient's skin is warm and dry. Respiratory: Airway is patent Respiratory effort is even, unlabored, Respiratory pattern is regular, symmetrical. GI: Abdomen is round distended, Bowel sounds present X 4 quads. Abd is soft and non tender X 4 quads. Abdomen is tender to palpation. : No signs and/or symptoms were reported regarding the genitourinary system. EENT: No signs and/or symptoms were reported regarding the EENT system. Derm: Skin is intact, Skin is dry, Skin is normal. Musculoskeletal: Range of motion: intact in all extremities. 14:10 Reassessment: No changes from previously documented assessment. . rs5 15:24 General: Appears uncomfortable, Behavior is calm, cooperative, appropriate for age. ap3 Neuro: Level of Consciousness is awake, alert, obeys commands, Oriented to person, place, time, situation, Appropriate for age Gait is steady, Speech is normal. Cardiovascular: Patient's skin is warm and dry. Respiratory: Airway is patent Respiratory effort is even, unlabored, Respiratory pattern is regular, symmetrical. GI: Abdomen is distended. 16:55 Pain: Complains of pain in abdomen Pain currently is 7 out of 10 on a pain scale. rs5 Quality of pain is described as aching, Is continuous. 16:55 Reassessment: Provider notified pt is experiencing pain. rs5 18:05 Reassessment: Patient and/or family updated on plan of care and expected duration. Pain rs5 level reassessed. Patient is alert, oriented x 3, equal unlabored respirations, skin warm/dry/pink. Patient denies pain at this time. Patient states feeling better. Patient states symptoms have improved. 18:40 Reassessment: No changes from previously documented assessment. rs5 Vital Signs: 13:12 BP 142 / 97; Pulse 122; Resp 24; Temp 98.1; Pulse Ox 98% ; Weight 86.18 kg; Height 5 ll1 ft. 6 in. ; Pain 10/10; 15:21 BP 129 / 90; Pulse 101; Resp 19; Pulse Ox 98% on R/A; ap3 16:30 BP 134 / 89; Pulse 98; Resp 18; Pulse Ox 98% on R/A; rs5 18:30 BP 130 / 86; Pulse 90; Resp 18; Pulse Ox 99% on R/A; rs5 13:12 Body Mass Index 30.67 (86.18 kg, 167.64 cm) ll1 13:12 Pain Scale: Adult ll1 ED Course: 12:54 Patient arrived in ED. rg4 13:00 Rudi Camp PA is PHCP. cp 13:00 Rupert Farnsworth MD is Attending Physician. cp 13:05 Arm band placed on. iw 13:05 No provider procedures requiring assistance completed. rs5 13:06 Triage completed. ll1 13:52 XRAY Chest (1 view) In Process Unspecified. EDMS 14:58 Inserted saline lock: 22 gauge in left antecubital area, using aseptic technique. Blood ap3 collected. 14:58 Initial lab(s) drawn, by me, sent to lab. First set of blood cultures drawn by me. ap3 14:58 Lactate w/ 2H reflex if indic. Sent. ap3 14:58 Lipase Sent. ap3 14:58 Ptt, Activated Sent. ap3 14:58 Basic Metabolic Panel Sent. ap3 14:58 CBC with Diff Sent. ap3 14:58 LFT's Sent. ap3 14:58 Magnesium Sent. ap3 14:58 NT PRO-BNP Sent. ap3 14:58 PT-INR Sent. ap3 14:59 Troponin HS Sent. ap3 15:21 Placed in gown. Bed in low position. Call light in reach. Side rails up X 1. Adult w/ ap3 patient. equipment monitor phototypesetting on. Pulse ox on. NIBP on. Door closed. Noise minimized. Warm blanket given. 15:22 EKG done, by ED staff, reviewed by Rudi JIMENEZ. ap3 16:29 Suleiman Wells, RN is Primary Nurse. rs5 16:31 CT Abd/Pelvis - IV Contrast Only In Process Unspecified. EDMS 18:22 Donovan Clark MD is Referral Physician. cp 18:48 IV discontinued, intact, bleeding controlled, No redness/swelling at site. Pressure rs5 dressing applied. Administered Medications: 17:01 Drug: morphine IVP or IV 4 mg IVP once over 4 mins Route: IVP; Infused Over: 4 mins; rs5 Site: left antecubital; 17:20 Follow up: Response: No adverse reaction rs5 18:10 Drug: Furosemide IVP 20 mg IVP once; give over 2 minutes Route: IVP; Site: left rs5 antecubital; 18:25 Follow up: Response: No adverse reaction rs5 Medication: 13:05 VIS not applicable for this client. rs5 Outcome: 18:25 Discharge ordered by . cp 18:48 Patient left the ED. rs5 18:48 Patient left the ED. rs5 18:48 Discharged to home ambulatory, rs5 18:48 Condition: stable 18:48 Discharge instructions given to patient, family, Instructed on discharge instructions, follow up and referral plans. Demonstrated understanding of instructions, follow-up care, Signatures: Dispatcher [employer] EDMS Jennifer Lopez RN RN iw Rudi Camp PA PA cp Talia Dubois rg4 Terri Dior RN RN ap3 Latrice Santana RN RN ll1 Suleiman Wells, ANAT RN rs5 Corrections: (The following items were deleted from the chart) 13:13 13:06 Chief complaint: Patient states: Abdominal pain/swelling for days. ll1 ll1 13:14 13:06 Acuity: MARGARITA 3 ll1 ll1 19:23 18:59 Patient left the ED. rs5 rs5 19:26 13:05 Pain: Complains of pain in abdomen Pain currently is 4 out of 10 on a pain scale. rs5 Quality of pain is described as aching, Is continuous, rs5
--- NOTE | 2024-01-28 18:25 | EDPHYS ---
Physician Documentation [facility] Name: Rick Brooks Age: 43 yrs Sex: Male : 1980 Arrival Date: 01/28/2024 Time: 12:53 Bed 17 Private MD: ED Physician Rupert Farnsworth HPI: 01/27 13:30 This 43 yrs old Male presents to ER via Ambulatory with complaints of cp Abdominal Pain, Abdominal Swelling. 13:30 The patient presents with abdominal pain that is diffuse, abdominal distention that is cp diffuse. Onset: The symptoms/episode began/occurred gradually, and became worse 1 week(s) ago. The symptoms do not radiate. Associated signs and symptoms: Pertinent negatives: blood in stools, chest pain, constipation, diarrhea, fever, vomiting. The symptoms are described as constant. Modifying factors: the symptoms are aggravated by movement. Severity of pain: in the emergency department the pain is unchanged despite home interventions. Historical: - Allergies: 13:05 No Known Allergies; iw - PMHx: 13:14 liver problems; ll1 - PSHx: 13:14 None; ll1 - Immunization history:: Adult Immunizations up to date. - Social history:: Smoking status: Patient denies any tobacco usage or history of. ROS: 13:35 Constitutional: Negative for body aches, chills, fever, poor PO intake, cp 13:35 Eyes: Negative for injury, pain, redness, and discharge, cp 13:35 ENT: Negative for drainage from ear(s), ear pain, sore throat, difficulty swallowing, difficulty handling secretions, 13:35 Cardiovascular: Negative for chest pain, palpitations, 13:35 Respiratory: Positive for shortness of breath, on exertion. Negative for cough, wheezing, 13:35 Abdomen/GI: Positive for abdominal pain, abdominal distension, Negative for vomiting, diarrhea, constipation, black/tarry stool, rectal bleeding, 13:35 Back: Negative for radiated pain, 13:35 Neuro: Negative for altered mental status, dizziness, headache, weakness, 13:35 All other systems are negative, Exam: 13:40 Constitutional: The patient appears in no acute distress, alert, awake, cp non-diaphoretic, non-toxic, well developed, well nourished, uncomfortable, 13:40 Head/Face: Normocephalic, atraumatic. cp 13:40 Eyes: Periorbital structures: appear normal, Conjunctiva: normal, no exudate, no injection, Sclera: no appreciated abnormality, Lids and lashes: appear normal, bilaterally, 13:40 ENT: External ear(s): are unremarkable, Nose: is normal, Mouth: Lips: moist, Oral mucosa: moist, Posterior pharynx: Airway: no evidence of obstruction, patent, 13:40 Neck: ROM/movement: is normal, is supple, without pain, no range of motions limitations, 13:40 Chest/axilla: Inspection: normal, Palpation: is normal, no crepitus, no tenderness, 13:40 Cardiovascular: Rate: tachycardic, Rhythm: regular, Edema: ankle edema, that is very mild, JVD: is not appreciated, 13:40 Respiratory: the patient does not display signs of respiratory distress, Respirations: normal, no use of accessory muscles, no retractions, labored breathing, is not present, Breath sounds: are clear throughout, no decreased breath sounds, no stridor, no wheezing, 13:40 Abdomen/GI: Inspection: distension, that is moderate, Bowel sounds: active, all quadrants, Palpation: soft, in all quadrants, mild abdominal tenderness, in all quadrants, rebound tenderness, is not appreciated, involuntary guarding, is not appreciated, 13:40 Back: vertebral tenderness, is not appreciated, 13:40 Skin: cellulitis, is not appreciated, no rash present. 13:40 Neuro: Orientation: to person, place \T\ time. Mentation: is normal, Motor: moves all fours, strength is normal, Gait: is steady, Vital Signs: 13:12 BP 142 / 97; Pulse 122; Resp 24; Temp 98.1; Pulse Ox 98% ; Weight 86.18 kg; Height 5 ll1 ft. 6 in. ; Pain 10/10; 15:21 BP 129 / 90; Pulse 101; Resp 19; Pulse Ox 98% on R/A; ap3 16:30 BP 134 / 89; Pulse 98; Resp 18; Pulse Ox 98% on R/A; rs5 18:30 BP 130 / 86; Pulse 90; Resp 18; Pulse Ox 99% on R/A; rs5 13:12 Body Mass Index 30.67 (86.18 kg, 167.64 cm) ll1 13:12 Pain Scale: Adult ll1 MDM: 13:05 Patient medically screened. cp 14:00 Differential diagnosis: chf, sepsis, peritonitis, hepatic failure, kidney failure. cp 18:25 Data reviewed: vital signs, nurses notes, lab test result(s), EKG, radiologic studies, cp CT scan, plain films. 18:25 Consideration of Admission/Observation Escalation of care including cp admission/observation considered. I considered the following discharge prescriptions or medication management in the emergency department Medications were administered in the Emergency Department. See MAR. Counseling: I had a detailed discussion with the patient and/or guardian regarding the historical points, exam findings, and any diagnostic results supporting the discharge/admit diagnosis, lab results, radiology results, the need for outpatient follow up, for definitive care, a gym supervisor, to return to the emergency department if symptoms worsen or persist or if there are any questions or concerns that arise at home. 01/27 13:22 Order name: Basic Metabolic Panel; Complete Time: 15:33 cp 01/27 15:33 Interpretation: Normal except: BUN 24. cp 01/27 13:22 Order name: CBC with Diff; Complete Time: 17:59 cp 01/27 15:33 Interpretation: Normal except: WBC 4.10; HGB 12.2; HCT 37.4; MCV 73.4; MCH 24.0; RDW cp 22.9; LYM% 14.2; LYMA 0.6. 01/27 13:22 Order name: LFT's; Complete Time: 15:33 cp 01/27 15:33 Interpretation: Normal except: AST 60; ALK 155; BILID 0.5; TP 8.8; ALB 2.5; GLOB 6.3; cp A/G 0.4. 01/27 13:22 Order name: Magnesium; Complete Time: 15:33 cp 01/27 13:22 Order name: NT PRO-BNP; Complete Time: 15:33 cp 01/27 13:22 Order name: PT-INR; Complete Time: 15:33 cp 01/27 13:22 Order name: Troponin HS; Complete Time: 15:33 cp 01/27 13:22 Order name: Ptt, Activated; Complete Time: 15:33 cp 01/27 13:22 Order name: Lipase; Complete Time: 15:33 cp 01/27 13:22 Order name: Lactate w/ 2H reflex if indic.; Complete Time: 15:33 cp 01/27 13:22 Order name: Blood Culture Adult (2) cp 01/27 17:26 Order name: CBC Smear Scan; Complete Time: 17:59 EDOK 01/27 18:00 Interpretation: Reviewed. 01/27 13:22 Order name: XRAY Chest (1 view); Complete Time: 15:33 cp 01/27 15:53 Order name: CT Abd/Pelvis - IV Contrast Only; Complete Time: 17:59 cp 01/27 13:22 Order name: EKG; Complete Time: 13:23 cp 01/27 13:22 Order name: Cardiac monitoring; Complete Time: 15:22 cp 01/27 13:22 Order name: EKG - Nurse/Tech; Complete Time: 15:22 cp 01/27 13:22 Order name: IV Saline Lock; Complete Time: 14:58 cp 01/27 13:22 Order name: Labs collected and sent; Complete Time: 14:58 01/27 13:22 Order name: O2 Per Protocol; Complete Time: 15:08 01/27 13:22 Order name: O2 Sat Monitoring; Complete Time: 15:08 cp Administered Medications: 17:01 Drug: morphine IVP or IV 4 mg IVP once over 4 mins Route: IVP; Infused Over: 4 mins; rs5 Site: left antecubital; 17:20 Follow up: Response: No adverse reaction rs5 18:10 Drug: Furosemide IVP 20 mg IVP once; give over 2 minutes Route: IVP; Site: left rs5 antecubital; 18:25 Follow up: Response: No adverse reaction rs5 Disposition Summary: 01/28/24 18:25 Discharge Ordered Notes: Location: Home cp Problem: chronic cp Symptoms: have improved cp Condition: Stable cp Diagnosis - Alcoholic cirrhosis of liver with ascites cp - Pleural effusion, not elsewhere classified cp Followup: cp - With: Donovan Clark MD - When: 2 - 3 days - Reason: Recheck today's complaints Discharge Instructions: - Discharge Summary Sheet cp - Ascites cp - Cirrhosis cp - Pleural Effusion cp Forms: - Medication Reconciliation Form cp - Thank You Letter cp - Antibiotic Education cp - Prescription Opioid Use cp - Patient Portal Instructions cp - Leadership Thank You Letter cp Signatures: Dispatcher [employer] Jennifer Murry RN RN iw Rudi Camp PA PA cp Lewis, Lynsay, RN RN ll1 Suleiman Wells, RN RN rs5
[2024-01-28 18:54] VITALS: TEMP 98.1; O2SAT 98
[2024-01-28 19:18] VITALS: BP 134/89
== END ==
LOC: ER 12:53
DX: K70.31 Alcoholic cirrhosis of liver with ascites (principal); J90 Pleural effusion, not elsewhere classified
CPT/HCPCS: 36415; 71045; 74177; 80048; 80076; 83605; 83690; 83735; 83880; 84484; 85025; 85610; 85730; 87040; 93005; J1940; Q9967